=== PATIENT | male | born 1960 | race Caucasian/White ===

== ENCOUNTER 2020-07-06 13:31 | Emergency (ER) | payer MEDICARE, SELFPAY ==
--- NOTE | ~2020-07-06 | CT_ITS ---
EXAMINATION: CT brain wo con DATE: 07/06/2020 14:10 INDICATION: Dizziness. Tingling sensation of scalp. TECHNIQUE: Computed tomography (CT) of the head was performed without intravenous contrast. The mA wa s adjusted according to patient size. Iterative reconstruction technique was employed. The dose-lengt h product was 681.00 mGy-cm. COMPARISON: Head CT 06/11/2008 FINDINGS: There is no intracranial hemorrhage, acute infarction, or abnormal intracranial mass lesion . The ventricles are normal in size. The orbits are normal. There is mild mucosal thickening in the e thmoid sinuses. The mastoid air cells are normal. IMPRESSION: 1. Normal brain. Reviewed, dictated and finalized at location B. IMPRESSION: 1. Normal brain.
--- NOTE | ~2020-07-06 | CT_ITS ---
EXAMINATION: CT cervical spine wo con DATE: 07/06/2020 14:10 INDICATION: Dizziness. Tingling of the scalp. TECHNIQUE: Computed tomography (CT) of the cervical spine was performed without intravenous contrast. Automated exposure control and iterative reconstruction technique were employed. The dose-length pro duct was 439.95 mGy-cm. COMPARISON: None FINDINGS: There is kyphosis of cervical spine. Vertebral body heights are normal. There is mildly dec reased disc height at C5-C6. There is developmental osseous central canal stenosis from C2 to C4. The following disc levels are specifically discussed: C2-C3: There is no uncovertebral joint osteoarthritis. There is mild right facet joint osteoarthritis . There is no neural foraminal stenosis. There is mild central canal stenosis. C3-C4: There is no uncovertebral joint osteoarthritis. There is mild bilateral facet joint osteoarthr itis. There is no neural foraminal stenosis. There is mild central canal stenosis. C4-C5: There is mild right uncovertebral joint osteoarthritis. There is no facet joint osteoarthritis . There is no neural foraminal stenosis. There is mild central canal stenosis. C5-C6: There is mild bilateral uncovertebral joint osteoarthritis. There is mild right facet joint os teoarthritis. There is no neural foraminal stenosis. There is mild central canal stenosis. C6-C7: There is no uncovertebral joint osteoarthritis. There is mild bilateral facet joint osteoarthr itis. There is no neural foraminal stenosis. There is no central canal stenosis. C7-T1: There is no uncovertebral joint osteoarthritis. There is moderate bilateral facet joint osteoa rthritis. There is no neural foraminal stenosis. There is no central canal stenosis. IMPRESSION: 1. Mild cervical spondylosis. Reviewed, dictated and finalized at location B.
[2020-07-06 13:34] VITALS: PULSE 70; RESP 17; TEMP 36.3; O2SAT 99
[2020-07-06 13:38] VITALS: BP 107/72; PULSE 70; RESP 18; O2SAT 98
--- NOTE | 2020-07-06 13:41 | ED.NEUROSD ---
HPI - Neuro Symptoms/Deficit General Chief Complaint: Neuro Symptoms/Deficit Stated Complaint: tingling to head Time Seen by Provider: 07/06/20 13:34 History of Present Illness HPI Narrative: Patient presents with his for a tingling sensation across his left scalp. This is been going on for a couple of weeks. And lasts a couple of hours when it happened. It is not related to motion or the position of his head. This is not associated with any pain. He also has problems with dizziness and is being worked up by a neurologist, who thinks it may be post concussive syndrome. He has an appointment in July for further follow-up. He no longer works. He walks with a cane. He does not smoke cigarettes,, or do drugs, or drink alcohol. Onset (ago): week(s) Timing confirmed by: spouse Location: other (Left scalp) Severity: mild Quality: tingling Relieving factors: none Exacerbating factors: none Context: gradual onset On Anticoagulants: No Associated symptoms: vertigo Treatments Prior to Arrival: none Related Data Home Medications Medication Instructions Recorded Confirmed atorvastatin 40 mg PO DAILY 07/06/20 carvedilol 25 mg PO DAILY 07/06/20 diazepam 10 mg PO DAILY 07/06/20 ergocalciferol (vitamin D2) 1,250 mcg PO DAILY 07/06/20 gabapentin 300 mg PO TID 07/06/20 losartan 100 mg PO DAILY 07/06/20 rivaroxaban [Xarelto] 20 mg PO DAILY 07/06/20 tramadol 50 mg PO Q3-6H PRN 07/06/20 trazodone 100 mg PO DAILY 07/06/20 Allergies Allergy/AdvReac Type Severity Reaction Status Date / Time meperidine Allergy Mild Verified 05/28/14 15:11 methadone Allergy Mild Verified 05/28/14 15:11 Review of Systems Review of Systems: Narrative: CONSTITUTIONAL: Denies fever, chills, or sweats. EYES: Denies visual changes, redness, or discharge. ENT: Denies rhinorrhea, congestion, sore throat, or otalgia. CARDIOVASCULAR: Denies chest pain, palpitations, or edema. RESPIRATORY: Denies cough or dyspnea. GASTROINTESTINAL: Denies abdominal pain, nausea, vomiting, or diarrhea. GENITOURINARY: Denies dysuria or hematuria. SKIN: Denies rash or itching. MUSCULOSKELETAL: Denies back pain, joint pain, or myalgia. NEUROLOGIC: Denies headache, numbness, or weakness. He does have tingling on the left scalp, and dizziness intermittently. . All systems reviewed & are unremarkable except as noted in HPI and below PMFSH Social History Social History (Updated 07/06/20 @ 13:44 by Sierra Gar MD) Smoking status: Never smoker Alcohol intake: never Substance use: never Gender identity (if verbalized by the patient): Male Exam Narrative: Exam Narrative: GENERAL: Well-appearing, well-nourished, and in no acute distress. HEAD: Normocephalic, atraumatic. EYES: PERRLA and EOMI. ENT: Nares clear, no rhinorrhea or epistaxis. Mucous membranes moist. NECK: Supple. CHEST: Clear to auscultation. No respiratory distress. HEART: Regular rate and rhythm. No murmur heard. Normal peripheral pulses. ABDOMEN: Soft, nontender, nondistended, normal active bowel sounds. EXTREMITIES: Normal range of motion. No edema. SKIN: Warm, dry, no rash. NEURO: No focal deficits. Alert and oriented x3. PSYCH: Flat affect. Course Reevaluation(s) Reevaluation #1: Went in to tell the patient and his the findings from the cervical CAT scan and the CAT scan of the brain. The paresthesias have no anatomical source. I told them is probably a pinched nerve, and no treatment is necessary. He should follow-up with his neurologist at [facility]. Unfortunately [facility] does not have access to our medical records. I advised the patient to stop by medical records after today to get a copy of the CAT scan reports for the neurologist. Date: 07/06/20 Time: 14:38 Vital Signs Vital signs: Vital Signs Temperature 97.4 F L 07/06/20 13:34 Pulse Rate 70 07/06/20 13:34 Respiratory Rate 17 07/06/20 13:34 Pulse Oximetry 99 07/06/20 13:34 Temperature 97.4 F L
[2020-07-06 13:52] LABS: Basophils Percent Auto 0.3 % (0.2-1.2); Eosinophils Absolute Auto 0.1 K/mm3 (0-0.3); Eosinophils Percent Auto 1.6 % (0-4.4); Hematocrit 48.5 % (42.0-52.0); Immature Granulocyte Absolute 0.03 K/mm3 (0.00-0.031); Immature Granulocyte Percent A 0.4 % (0-0.5); Lymphocytes Absolute Auto 1.58 K/mm3 (0.9-3.2); Lymphocytes Percent Auto 20.8 % (18.3-44.2); Mean Corpuscular HGB Conc 35.1 g/dl (32-36); Mean Corpuscular Volume 91.2 fl (80-100); Monocytes Absolute Auto 0.5 K/mm3 (0.1-0.6); Neutrophils Absolute Auto 5.3 K/mm3 (1.3-6.7); Neutrophils Percent Auto 69.9 % (45.5-73.1); Platelet Count Result 246 k/mm3 (150-375); Red Blood Count 5.32 M/mm3 (4.6-6.20); Red Cell Distribution Width 11.6 % (11.5-14.5); White Blood Count 7.6 K/mm3 (4.5-10.0)
[2020-07-06 14:04] LABS: Alanine Aminotransferase 32 U/L (4-50); Albumin Level 4.6 g/dL (3.5-5.1); Alkaline Phosphatase 54 U/L (38-126); Anion Gap 6 mmol/L (8-16); Aspartate Amino Transferase 28 U/L (17-59); Bilirubin,Total 1.1 mg/dL (0.2-1.3); Blood Urea Nitrogen 16 mg/dL (9-20); Calcium 9.3 mg/dL (8.4-10.2); Carbon Dioxide 29 mmol/L (22-30); Chloride 100 mmol/L (98-107); Estimated CRCL calculation 84 ml/min; Estimated Glomerular Filt Rate > 60; Glucose 88 mg/dL (75-110); Potassium 4.8 mmol/L (3.4-5.0); Sodium 135 mmol/L (137-145)
[2020-07-06 14:54] VITALS: BP 102/67; PULSE 78; RESP 18; O2SAT 99
== END 2020-07-06 14:56 | disposition home or self-care (01) ==
PROVIDERS: Emergency Provider Emergency Medicine; PCP Nurse Practitioner Pediatrics
DX: R20.2 Paresthesia of skin (principal); R42 Dizziness and giddiness; M47.812 Spondylosis without myelopathy or radiculopathy, cervical region
CPT/HCPCS: 36415; 70450; 72125; 80053; 85025; 99284

== ENCOUNTER 2021-12-06 15:15 | Outpatient (RCR) | payer MEDICARE, SELFPAY ==
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
--- NOTE | 2021-10-31 13:34 | PTOPEVAL ---
PHYSICAL THERAPY PROGRESS REPORT Thank you for referring Felix Galindo to [facility].? The patient is scheduled to be seen for therapy? 1x/week for 4x/wk. I agree with and certify that the following plan of care is medically necessary. Referring Physician Date Diagnosis traumatic encephalopathy Onset chronic Subjective Information has been coming to therapy for Query Text:As Reported By Patient/ a month for balance work. Family States that this morning he stood up with his left leg and went to put his right leg down and he feel flat on his face. Was able to get up on his own. States in the last month he has had several falls : 1 x at [facility], several times at home. Patient lives with his . He is independent with ADLs and drives. He goes to the gym and works out 3 days/week. 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 Requires Supervision Look Behind Shoulder - Standing Supervision w/Turning Turning 360 Degrees Requires Assistance Unsupported Stance, Alternating Feet on Assist to Prevent Fall Stair Unsupported Tandem Stance Assist to Step-15 seconds Unilateral Leg Stance Unable,assist to not fall PALACIOS Balance Evaluation Total Score (56 20 points) Comments 1month ago Time Up Go (TUG) Timed Up and Go Test (TUG) (Seconds) 18 Assistive Devices Cane, Straight Comments 1month ago = 18seconds 5 Time Sit to Stand Time in Seconds 16.57 5 Time Sit to Stand Comments with arm rests Query Text:Normative Data: If Greater 1month ago = 17.59seconds, no Than 15 Seconds, 74% Increase Risk for arm rests Recurrent Falls Gait Assessment 6 Minute Walk Total Distance (feet) 572 6 Minute Walk Gait Speed Score (feet/ 1.58 second) 6 Minute Gait Comments each lap was slower than the last; with straight cane
--- NOTE | 2021-12-06 16:00 | PTOPEVAL ---
PHYSICAL THERAPY DISCHRAGE NOTE Thank you for referring Felix Galindo to [facility].? Please review, sign, date and return this plan of care MYRIAM. I agree with and certify that the following plan of care is medically necessary. Referring Physician Date Discharge Diagnosis traumatic encephalopathy Onset chronic Subjective Information has been coming to therapy for Query Text:As Reported By Patient/ two months for balance work. Family continues to report a couple of falls including falling getting out of the shower at the gym (tripped over the lip) . Still going to the gym 3x/ wk. States that exercises at home are doing well. Pain Assessment Timing of Pain Assessment Timing of Pain Assessment Assessment Self Report Self Report Pain Level 0 Pain Score Pain Score 0: Self Report Balance Assessment Roman Balance Assessment Comments 1month ago = 2056 2month ago 2756 Time Up Go (TUG) Timed Up and Go Test (TUG) (Seconds) 10 Assistive Devices Cane, Straight Comments 1month ago = 18seconds 2month ago = 18seconds 5 Time Sit to Stand Time in Seconds 11.69 5 Time Sit to Stand Comments 1month ago: 16.57seconds Query Text:Normative Data: If Greater with arm rests Than 15 Seconds, 74% Increase Risk for 2month ago = 17.59seconds, no Recurrent Falls arm rests Gait Assessment 6 Minute Walk Total Distance (feet) 863 6 Minute Walk Gait Speed Score (feet/ 2.39 second) 6 Minute Gait Comments 1month ago 572 (1.58ft/second) 2month ago = 685, 1.9ft/second PT Clinical Summary Felix has participated in physicla therapy for 2months. Felix demonstrates significantly improved gait speed, balance, and LE strength. He demonstrates functional strength and functional gait speed. He does continue to have some balance deficit; however, due to his traumatic encephalopathy it is difficult to predict how much his balance might improve from current state. He goes to the gym 3 days a week doing
--- NOTE | 2021-12-10 09:28 | STOPEVAL ---
Thank you for referring Felix Galindo to [facility].? Ordering Physician: Supriya Jiang Therapy Assessment Status Assessment Status Assessment Status Discharge - Pt Not Present Outpatient Past Medical History Past Medical History Source of Past Medical History Patient Neurological History Hx Other Neurological Disorders Yes: TBIs, multiple concussions w/ cognitive changes Musculoskeletal History Hx Fractures Yes: Cervical fx 1980s w/ chronic pain Pain History Has Past Pain Affected Your Daily Life Yes ST Clinical Summary Clinical Summary ST Clinical Summary DISCHARGE SUMMARY This patient was seen for a Speech Evaluation on 10/03/21 with 6 subsequent treatments addressing use of memory strategies to facilitate recall. Patient was instructed in the use of a variety of recall strategies including visual imagery, use of associations, repeating new information aloud, and others. Patient voiced good understanding of these strategies and also was able to apply them to situations. Patient's also attended the last session and was instructed in the use of these strategies and how to facilitate patient's use of them. Both patient and voiced understanding. A concern of patient's included when his asks him to bring her, for example, a cup of coffee. When strategies were discussed (repeating aloud the instructions back to the , picturing the cup of coffee in his head), patient agreed he could do that, but then made a comment about stopping to feed the dog and other side jobs; therapist instructed him to not do those things but immediately attend to the instruction. He voiced understanding however concerns
== END 2021-12-07 10:06 | disposition home or self-care (01) ==
LOC: ANHPT 15:15
PROVIDERS: PCP Nurse Practitioner Pediatrics
DX: S06.9X0D Unspecified intracranial injury without loss of consciousness, subsequent encounter (principal); G31.09 Other frontotemporal neurocognitive disorder; F02.80 Dementia in other diseases classified elsewhere, unspecified severity, without behavioral disturbance, psychotic disturbance, mood disturbance, and anxiety; R26.89 Other abnormalities of gait and mobility; R41.89 Other symptoms and signs involving cognitive functions and awareness; R27.8 Other lack of coordination
CPT/HCPCS: 92507; 92523; 97110; 97116; 97163; 97165

== ENCOUNTER 2022-12-16 18:43 | Observation (INO) | payer MEDICARE, SELFPAY ==
--- NOTE | ~2022-12-16 | CT_ITS ---
EXAMINATION: CT brain wo con DATE: 12/17/2022 08:45 INDICATION: Loss of consciousness. Fall. TECHNIQUE: Computed tomography (CT) of the head was performed without intravenous contrast. Sagittal and coronal reconstructions were performed. The mA was adjusted according to patient size. Iterative reconstruction technique was employed. The dose-length product was 605.33 mGy-cm. COMPARISON: head CT dated 07/06/2020 and 06/11/2008 FINDINGS: No fracture. No acute intracranial hemorrhage or acute infarction. Again noted is a prominent cistern a magna. No other abnormal extra-axial fluid collections. Ventricles are normal and symmetric. No mas s/mass effect. Mucosal thickening at the right frontoethmoidal recess. The orbits and mastoid air kelly ls are normal. IMPRESSION: 1. No fracture or acute intracranial process. Reviewed, dictated and finalized at location L. [facility] C[facility] CONSULTANT
--- NOTE | ~2022-12-16 | XR_ITS ---
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 RESULT: Lines, tubes, and devices: Left chest pacer/AICD with 4 intact leads. Lungs and pleura: Low lung volumes with crowding, particularly in the lateral view. Cardiomediastinal silhouette: Stable. Other: No acute osseous or upper abdominal finding. IMPRESSION: No acute cardiopulmonary process. Reviewed, dictated and finalized at location K. SCHOOL SCIENCE TEACHER
--- NOTE | ~2022-12-16 | NM_ITS ---
EXAMINATION: NM vinay stress w perfusion DATE: 12/17/2022 14:21 INDICATION: Syncope TECHNIQUE: Rest images were obtained following intravenous administration of 9.4 mCi Tc99m tetrofosmi n (Myoview). The patient was infused intravenously with Lexiscan (Regadenoson). Then, 30.8 mCi Tc99m tetrofosmin (Myoview) was administered intravenously, and stress images were obtained. Data was recon structed into short axis and horizontal and vertical long axis SPECT images. Gated SPECT images were also obtained. COMPARISON: None. FINDINGS: There is no definite reversible or fixed perfusion abnormality to suggest ischemia or infar ction. There is normal left ventricular chamber size, wall motion and ejection fraction. Left ventr icular ejection fraction measures 64%. IMPRESSION: 1. Normal myocardial perfusion at rest and during stress. 2. Left ventricular ejection fraction measuring 64%. Reviewed, dictated and finalized at location L. 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
--- NOTE | ~2022-12-16 | CT_ITS ---
EXAMINATION: CTA chest abdomen pelvis DATE: 12/16/2022 21:51 INDICATION: Chest and abdominal pain . TECHNIQUE: Computed tomography (CT) of the chest, abdomen, and pelvis was performed with 100 mL Omnip aque-350 intravenous contrast, in the arterial phase. Automated exposure control and iterative recons truction technique were employed. The dose-length product was 1455.44 mGy-cm. COMPARISON: CT abdomen and pelvis 08/21/2018 FINDINGS: Thoracic aorta: No significant dilation or significant stenosis. No dissection. Lung parenchyma and airways: Lungs and airways are clear. There is dependent atelectasis. Thoracic inlet, axillae and chest wall: No thyroid or soft tissue mass. No axillary lymphadenopathy. Left chest pacer/AICD with intact leads. Mediastinum: No mass or lymphadenopathy. Heart and pericardium: Mild cardiomegaly. No pericardial effusion. Coronary artery calcifications: Absent. Pleura: No effusion or mass. Thoracic bones: No acute osseous finding in the chest. ABDOMEN/PELVIS: Liver: Normal. Biliary/Gallbladder: Gallbladder is normal. No bile duct dilation. Pancreas: Fatty infiltration. Spleen: Normal. Adrenals:No mass. Kidneys: No mass, stone, or hydronephrosis. GI tract: Mild distal esophageal and gastric wall edema No small or large bowel dilation. Normal appe ndix. Diverticulosis without diverticulitis. Mesentery/Peritoneum: No ascites, mass, or free air. Retroperitoneum: No mass. Mild atherosclerotic abdominal aortic and/or arterial calcifications. No di ssection, aneurysm, or significant stenosis. Pelvis: Distended urinary bladder with mild wall thickening likely secondary to outlet compromise fro m prostatomegaly. Soft Tissues: Soft tissues and body wall unremarkable. Abdominopelvic bones: No acute osseous finding in the abdomen/pelvis. IMPRESSION: Mild esophagitis/gastritis. Otherwise no acute process detected in the chest, abdomen, or pelvis. Reviewed, dictated and finalized at location K. PATCHER IMPRESSION: Mild esophagitis/gastritis. Otherwise no acute process detected in the chest, a bdomen, or pelvis.
[2022-12-16 18:56] VITALS: BP 132/90; PULSE 70; RESP 16; TEMP 36.8; O2SAT 96
--- NOTE | 2022-12-16 19:01 | ECG_ITS ---
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
[2022-12-16 19:11] LABS: Basophils Percent Auto 0.1 % (0.2-1.2); Eosinophils Absolute Auto 0.1 K/mm3 (0-0.3); Eosinophils Percent Auto 1.7 % (0-4.4); Hematocrit 46.7 % (42.0-52.0); Immature Granulocyte Absolute 0.02 K/mm3 (0.00-0.031); Immature Granulocyte Percent A 0.3 % (0-0.5); Lymphocytes Absolute Auto 1.81 K/mm3 (0.9-3.2); Lymphocytes Percent Auto 25.6 % (18.3-44.2); Mean Corpuscular HGB Conc 34.3 g/dl (32-36); Mean Corpuscular Hemoglobin 31.6 pg (26-34); Mean Corpuscular Volume 92.1 fl (80-100); Mean Platelet Volume 9.4 fl (7.4-10.4); Monocytes Absolute Auto 0.6 K/mm3 (0.1-0.6); Monocytes Percent Auto 7.9 % (2.6-8.5); Neutrophils Absolute Auto 4.6 K/mm3 (1.3-6.7); Neutrophils Percent Auto 64.4 % (45.5-73.1); Platelet Count Result 230 k/mm3 (150-375); Red Blood Count 5.07 M/mm3 (4.6-6.20); White Blood Count 7.1 K/mm3 (4.5-10.0)
[2022-12-16 19:19] LABS: Alanine Aminotransferase 47 U/L (6-50); Albumin Level 4.2 g/dL (3.5-5.1); Alkaline Phosphatase 52 U/L (38-126); Anion Gap 8 mmol/L (8-16); Aspartate Amino Transferase 35 U/L (17-59); Bilirubin,Total 1.1 mg/dL (0.2-1.3); Blood Urea Nitrogen 13 mg/dL (9-20); Calcium 8.6 mg/dL (8.4-10.2); Carbon Dioxide 25 mmol/L (22-30); Chloride 105 mmol/L (98-107); Estimated Glomerular Filt Rate > 60; Glucose 88 mg/dL (65-110); Lipase 33 U/L (23-300); Potassium 4.3 mmol/L (3.4-5.0); Sodium 138 mmol/L (137-145)
[2022-12-16 19:23] LABS: INR 1.5; Prothrombin Time 17.3 Seconds (11.1-14.7)
[2022-12-16 19:31] LABS: Troponin I < 0.012 ng/mL (0.000-0.034)
[2022-12-16 20:44] VITALS: BP 141/89; PULSE 76; RESP 15; O2SAT 97
--- NOTE | 2022-12-16 21:13 | ED.CHESTPAIN ---
HPI - Chest Pain General Chief Complaint: Chest Pain Stated Complaint: cp Time Seen by Provider: 12/16/22 20:40 History of Present Illness HPI narrative: This is a 61-year-old male with past medical history of CHF, status post pacemaker/ICD placement, who presents to the emergency department complaining of substernal epigastric pain for the past 4 hours. The pain began suddenly, is rated 8/10, does not radiate elsewhere, it is not associated with any weakness or numbness, but is associated with cold sweats and nausea. The patient states he lost consciousness at home. His , at bedside, states she witnessed the episode. Related Data Home Medications Medication Instructions Recorded Confirmed atorvastatin 40 mg tablet 40 mg PO DAILY 07/06/20 carvedilol 25 mg tablet 25 mg PO DAILY 07/06/20 diazepam 10 mg tablet 10 mg PO DAILY 07/06/20 ergocalciferol (vitamin D2) 1,250 1,250 mcg PO DAILY 07/06/20 mcg (50,000 unit) capsule gabapentin 300 mg capsule 300 mg PO TID 07/06/20 losartan 100 mg tablet 100 mg PO DAILY 07/06/20 rivaroxaban 20 mg tablet (Xarelto) 20 mg PO DAILY 07/06/20 tramadol 50 mg tablet 50 mg PO Q3-6H PRN Pain 07/06/20 trazodone 100 mg tablet 100 mg PO DAILY 07/06/20 Allergies Allergy/AdvReac Type Severity Reaction Status Date / Time meperidine Allergy Mild Unknown Verified 12/16/22 21:25 methadone Allergy Mild Unknown Verified 12/16/22 21:25 shellfish derived Allergy Unknown Verified 12/16/22 21:25 Review of Systems Review of Systems: CONSTITUTIONAL: Chills denies fever, or sweats. EYES: Denies visual changes, redness, or discharge. ENT: Denies rhinorrhea, congestion, sore throat, or otalgia. CARDIOVASCULAR: Chest pain, denies palpitations, or edema. RESPIRATORY: Denies cough or dyspnea. GASTROINTESTINAL: Epigastric abdominal pain and nausea denies vomiting, or diarrhea. GENITOURINARY: Denies dysuria or hematuria. SKIN: Denies rash or itching. MUSCULOSKELETAL: Denies back pain, joint pain, or myalgia. NEUROLOGIC: Denies headache, numbness, dizziness, or weakness. PSYCHIATRIC: Denies anxiety or depression. [facility] Past Medical History Medical History CHF (congestive heart failure) Pacemaker Social History Social History Smoking status: Never smoker Alcohol intake: never Substance use: never Gender identity (if verbalized by the patient): Male Exam Narrative: GENERAL: Well-developed, well-nourished, and in no acute distress. HEAD: Normocephalic, atraumatic. EYES: PERRLA and EOMI. ENT: Nares clear, no rhinorrhea or epistaxis. Mucous membranes moist. Oropharynx without tonsillar hypertrophy exudate or other lesions. NECK: Supple. No adenopathy or masses. No carotid bruits or JVD CHEST: Clear to auscultation. No respiratory distress. No wheezes rales or rhonchi HEART: Regular rate and rhythm. No murmur heard. Normal peripheral pulses. ABDOMEN: Soft, tender to palpation primarily in the epigastric region with some rebound but no guarding, nondistended, normal active bowel sounds. No CVA tenderness to palpation EXTREMITIES: Normal range of motion. No edema. SKIN: Warm, dry, no rash. NEURO: No focal deficits. Alert and oriented x3. PSYCH: Normal mood and affect. Course Course Emergency Course: 22:50 - CT angiogram negative for dissection and shows changes consistent with gastritis/esophagitis. ECG consistent with LBBB. Repeat troponin negative. The patient states his pain is somewhat improved but still present. HEART Score 6. Discussed findings with the patient. He states his pain is somewhat improved after GI cocktail. Given his history, will discuss patient with hospitalist. 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 Discussed transfer for admission and follow-up, however the patient prefers to stay here. Discussed patient with hospitalist, Dr. Gutierres who ac
[2022-12-16] MEDS: ONDANSETRON INJ 4 MG/2 ML VIAL IV PUSH (21:25)
[2022-12-16] MEDS: MORPHINE SULFATE (*CRX) 4 MG/ML INJ IV PUSH (21:25)
[2022-12-16] MEDS: BELLADONNA ALK/PHENOB ELIX 10 ML, MAG HYDROX/ALUMINUM HYD/SIMETH 30 ML, LIDOCAINE HCL 2... PO (21:26)
--- NOTE | 2022-12-16 21:51 | PC.NURSE ---
As this RN was administering IV medications, pt became unresponsive for approx 5-10 seconds. Aroused with light pain. VSS throughout episode, no diaphoresis or pallor noted during episode. Pt A&Ox4 upon arousal, states he feels disoriented . EDP notified.
[2022-12-16 22:02] VITALS: BP 124/87; PULSE 84; RESP 22; O2SAT 96
[2022-12-16 22:39] LABS: Troponin I < 0.012 ng/mL (0.000-0.034)
[2022-12-16 23:31] VITALS: BP 116/76; PULSE 83; RESP 19; O2SAT 95
[2022-12-17] VITALS (23 sets, daily range): BP systolic 89–114; BP diastolic 50–75; PULSE 64–89; RESP 13–21; TEMP 35.7–36.7; O2SAT 94–100; BMI 28.8; BMI 31.6
[2022-12-17] MEDS: PANTOPRAZOLE SODIUM IV 40 MG VIAL IV PUSH (00:08)
[2022-12-17 01:51] LABS: Troponin I < 0.012 ng/mL (0.000-0.034)
[2022-12-17] MEDS: GABAPENTIN 400 MG CAPSULE 800 MG PO ×4 (03:29→16:45)
[2022-12-17] MEDS: traZODone HCL 50 MG TABLET 100 MG PO ×2 (03:29→20:51)
[2022-12-17] MEDS: DONEPEZIL HCL 10 MG TABLET PO ×2 (03:30→20:52)
[2022-12-17] MEDS: traMADol HCL (*CRX) 50 MG TABLET PO ×2 (03:35→11:42)
[2022-12-17 05:06] LABS: Basophils Percent Auto 0.3 % (0.2-1.2); Eosinophils Absolute Auto 0.1 K/mm3 (0-0.3); Eosinophils Percent Auto 1.8 % (0-4.4); Hematocrit 43.7 % (42.0-52.0); Hemoglobin 15.3 g/dL (14.0-18.0); Immature Granulocyte Absolute 0.02 K/mm3 (0.00-0.031); Immature Granulocyte Percent A 0.3 % (0-0.5); Lymphocytes Percent Auto 29.5 % (18.3-44.2); Mean Corpuscular Hemoglobin 32.6 pg (26-34); Mean Corpuscular Volume 93.2 fl (80-100); Mean Platelet Volume 9.2 fl (7.4-10.4); Monocytes Absolute Auto 0.7 K/mm3 (0.1-0.6); Monocytes Percent Auto 9.3 % (2.6-8.5); Neutrophils Absolute Auto 4.2 K/mm3 (1.3-6.7); Neutrophils Percent Auto 58.8 % (45.5-73.1); Platelet Count Result 193 k/mm3 (150-375); Red Blood Count 4.69 M/mm3 (4.6-6.20); Red Cell Distribution Width 12.2 % (11.5-14.5); White Blood Count 7.1 K/mm3 (4.5-10.0)
[2022-12-17 05:14] LABS: Anion Gap 4 mmol/L (8-16); Blood Urea Nitrogen 10 mg/dL (9-20); Calcium 8.2 mg/dL (8.4-10.2); Carbon Dioxide 29 mmol/L (22-30); Chloride 100 mmol/L (98-107); Estimated CRCL calculation 95 ml/min; Estimated Glomerular Filt Rate > 60; Glucose 90 mg/dL (65-110); Sodium 133 mmol/L (137-145)
--- NOTE | 2022-12-17 07:02 | PM.IMHP ---
H&P: HPI History of Present Illness Date/Time: 12/17/22 07:02 Chief Complaint: Chest pain Narrative: 61-year-old male with past medical history of cardiomyopathy, sick sinus syndrome status post pacemaker paroxysmal atrial fibrillation, CVA, traumatic brain injury, chronic traumatic encephalopathy and GERD who presented to the ER via private vehicle with chest pain. The patient reports that he had pain in his left lower ribcage in epigastric area on the left side that was in odd sensation. He describes it is a sensation similar to when he has neuropathy. The pain was reportedly an 8/10 intensity Tee to ER documentation. Pain did not radiate. He denied having any nausea or diaphoresis at the time of my evaluation but had evidently reported to the ER staff. The patient does have a history of short-term memory difficulties due to his chronic traumatic encephalopathy. He states that when he went in to triage to get is vitals take id he lost consciousness and fell. He states that he struck his head and shoulder. However there was not documentation of this. Nursing staff tells me the patient fell but ?popped up immediately. He stated that he was placed into a wheelchair intake into the waiting room. The patient reports that while he was sitting in the waiting room in a wheelchair he slumped over to the side and was unresponsive. He came around after a brief interval. He was not confused or postictal. Evidently when nursing staff was administering IV medications (it is unclear whether this was pain medications or Zofran) in the ER the patient stared off into space for 5-10 seconds and stated that he felt disoriented afterwards. Does have a history of like intermittent dizziness, he will of intermittent fluctuations in his vision that he relates to changes in his age. He denies double vision. The patient reports that his actual chest symptoms had resolved around the time he came into the ER. ER so physician documentation states patient's pain improved after GI cocktail. CTA of the chest abdomen pelvis were performed in the ER to rule out aortic dissection. CT demonstrated mild esophagitis and gastritis. However, he is now complaining of left shoulder pain due to his falling over in the ER. He reports that he has severe rotator cuff damage and needs to have time off to have his rotator cuff repaired. His pain is rid her cuff is a 10/10. He states that his home tramadol only takes the edge off of the pain. He still states he cannot get his rotator cuff repaired right now because they were dealing with his having stage IV cervical cancer and he has to be able to take care of her. He has a history of GERD noted on records from [facility]. I reviewed the patient's records from his my chart application. He is not on PPI therapy. He has a distant history of obstructive sleep apnea based states that this resolved after he lost weight. He still has a dental appliance that he uses occasionally. He states that his 's says he no longer snores. He does have a history of seizures with his last 1 being approximately 2006. He sees Dr. Ceasar Whitten at [facility] for his neurologic complaints. He reports that he has a free lead from his pacemaker defibrillator in his chest. Review of Systems Review of Systems: 12 systems were reviewed with pertinent positives and negatives per HPI. Except as documented in the HPI, all other systems were reviewed and are negative. He reports frequent headaches, cautious her phobia, depression,. [facility] Past Medical History Medical History (Updated 12/17/22 @ 09:47 by Faith Gutierres, ) CHF (congestive heart failure) Chronic anticoagulation CTE (chronic traumatic encephalopathy) Depression Essential hypertension GERD (gastroesophageal reflux disease) Hyperlipidemia Insomnia Migraines Obstructive sleep apnea Pacemaker Paroxysmal atrial fibrillation With last episode approximately 2005 when he h
[2022-12-17] MEDS: carvediloL 25 MG TABLET PO ×2 (09:16→20:52)
[2022-12-17] MEDS: MEMANTINE 10 MG TABLET PO ×2 (09:16→16:45)
[2022-12-17] MEDS: ATORVASTATIN 40 MG TABLET PO (09:16)
[2022-12-17] MEDS: PANTOPRAZOLE 40 MG TABLET PO (09:20)
[2022-12-17] MEDS: diazePAM (*CRX) 10 MG TABLET PO ×2 (09:21→16:49)
[2022-12-17] MEDS: HYDROcodone/acetaminophen (*CRX) 5-325 MG TABLET 1 TAB PO ×3 (09:23→20:52)
--- NOTE | 2022-12-17 10:20 | PC.NURSE ---
RN talked with [employer] pacemaker rep. They will come to hospital to interrogate this patient's pacemaker per orders.
--- NOTE | 2022-12-17 10:32 | EST_ITS ---
Patient Info Name: Felix Galindo Age: 61 years : 1960 Gender: Male Ht: 71 in Wt: 226 lbs BSA: 2.29 m2 Exam Date: 12/17/2022 1:31 PM Exam Location: [facility] Stress Patient Status: Inpatient Admit Date: 12/16/2022 Staff Ordering Physician: Abebe Cunningham MD Attending Provider: Faith Gutierres DO Exercise Technologist: Chacha Mondragon RDCS Nurse: WILMAR SANTIZO NP Exam Type: CA stress vinay w NM Study Info Indications R55 - Syncope and collapse A regadenoson stress test was performed. Summary 1. Non-diagnostic ECG due to electronic pacing. 2. Please correlate with nuclear medicine images, reported separately. Protocol: Lexiscan Stress ECG Details Stage: REST Duration (min): 0 min : 56 sec HR (bpm): 72 SBP (mmHg): 111 DBP (mmHg): 84 Stage: REST Duration (min): 4 min : 0 sec HR (bpm): 70 SBP (mmHg): 111 DBP (mmHg): 84 Stage: STAGE 1 Duration (min): 1 min : 0 sec HR (bpm): 89 SBP (mmHg): 118 DBP (mmHg): 84 Stage: RECOVERY Duration (min): 1 min : 0 sec HR (bpm): 91 SBP (mmHg): 111 DBP (mmHg): 81 Stage: RECOVERY Duration (min): 2 min : 0 sec HR (bpm): 87 SBP (mmHg): 111 DBP (mmHg): 81 Stage: RECOVERY Duration (min): 3 min : 0 sec HR (bpm): 78 SBP (mmHg): 112 DBP (mmHg): 80 Stage: RECOVERY Duration (min): 3 min : 4 sec HR (bpm): 79 SBP (mmHg): 112 DBP (mmHg): 80 Rest HR: 70 bpm Peak HR: 92 bpm Rest Sys BP: 111 mmHg Peak Sys BP: 118 mmHg Max Pred HR: 161 bpm % Max Pred HR: 57 % Target HR: 137 bpm Max RPP: 10,856 bpm*mmHg Total Time: 1 min : 0 sec Rest [place] BP: 84 mmHg Peak [place] BP: 84 mmHg Total Dose: 0.4 mg Resting ECG Ventricular paced rhythm. Stress ECG Ventricular paced rhythm. Non-diagnostic ECG due to electronic pacing. Report Signatures
--- NOTE | 2022-12-17 10:47 | PM.CNCAR ---
Assessment and Plan Assessment and plan (1) Syncope: Qualifiers: Syncope type: unspecified Qualified Code(s): R55 - Syncope and collapse Code(s): R55 - Syncope and collapse Status: Acute (2) Chronic anticoagulation: Code(s): Z79.01 - jail (current) use of anticoagulants Status: Acute (3) Atypical chest pain: Code(s): R07.89 - Other chest pain Status: Acute (4) Nonobstructive atherosclerosis of coronary artery: Code(s): I25.10 - Atherosclerotic heart disease of [place] coronary artery without angina pectoris Status: Acute (5) Nonischemic cardiomyopathy: Code(s): I42.8 - Other cardiomyopathies Status: Acute (6) Paroxysmal atrial fibrillation: Code(s): I48.0 - Paroxysmal atrial fibrillation Status: Acute (7) Sick sinus syndrome: Code(s): I49.5 - Sick sinus syndrome Status: Acute (8) ICD (implantable cardioverter-defibrillator) in place: Code(s): Z95.810 - Presence of automatic (implantable) cardiac defibrillator Status: Acute Plan Patient has been ruled out for ACS. Will obtain Lexiscan. Will have his device interrogated. Continue home statin, Coreg, Xarelto. He will need outpatient follow-up with his primary rake operator. History of Present Illness History of Present Illness Consult date/time: 12/17/22 10:47 Requesting physician: Brian Rodriguez MD Consult reason: chest pain Reason For Visit: Chest pain Narrative: We are being consulted for chest pain. This is a 61-year-old male with a history of non-obstructive coronary artery disease, nonischemic cardiomyopathy with moderately reduced LVEF, paroxysmal atrial fibrillation, sick sinus syndrome s/p PPM with upgrade to ICD, history of CVA, traumatic brain injury, GERD who presented to the ER with chest pain. Patient reports that he developed left lower chest/abdominal pain that began yesterday around 5PM at rest. Constant. Not associated with exertion. Patient reports that he lost consciousness at home when walking/shuffling. Passed out for a few moments. Patient states that he almost passed out while waiting in the ER and had slumped over. In the ER, he was given GI cocktail with reported improvement in symptoms. Unclear if he actually passed out in the ER waiting room. Patient reports that his pain is better now. Reports shoulder pain. ER evaluation showed negative troponins, CT with mild esophagitis/gastritis. EKG with ventricular paced rhythm. Patient tells me that he wants a stress test done, and he will not be leaving the hospital until he gets stress test. His rake operator is at [facility]. Review of Systems Review of Systems: 8-point ROS obtained. Negative, unless stated in HPI. [facility] Past Medical History Medical History CHF (congestive heart failure) Chronic anticoagulation CTE (chronic traumatic encephalopathy) Depression Essential hypertension GERD (gastroesophageal reflux disease) Hyperlipidemia Insomnia Migraines Obstructive sleep apnea Pacemaker Paroxysmal atrial fibrillation With last episode approximately 2005 when he has pacemaker placed Peripheral neuropathy PTSD (post-traumatic stress disorder) Sick sinus syndrome due to SA node dysfunction Status post pacemaker and defibrillator 2006 Traumatic brain injury Surgical History Surgical History History of colonoscopy with polypectomy (~2009) History of esophagogastroduodenoscopy (EGD) (~2009) History of facial surgery Status post open reduction with internal fixation (ORIF) of fracture of ankle (~1986) Status post open reduction with internal fixation of fracture Right knee Family History Family History Grandparent Acute myocardial infarction Chronic obstructive pulmonary disease Diabetes mellitus Hypertension
--- NOTE | 2022-12-17 15:35 | PM.IMPN ---
Subjective Date/time seen: 12/17/22 15:35 61-year-old male with past medical history of cardiomyopathy, sick sinus syndrome status post pacemaker paroxysmal atrial fibrillation, CVA, traumatic brain injury, chronic traumatic encephalopathy and GERD who presented to the ER via private vehicle with chest pain.? The patient reports that he had pain in his left lower ribcage in epigastric area on the left side that was in odd sensation.? He describes it is a sensation similar to when he has neuropathy.? Pt states he fell in ED and hit his head and his shoulder Pt has a chronic painful shoulder with rotator cuff injury Pt states he is having chest pain Pt seen cardiology had stress test cleared for discharge Pt stress test is negative however patient Pt states he has seizures and wants to see neurology before discharge States he need a EEG Neurology consult ordered Objective Data Vital Signs Vital Signs: Vital Signs - 24 hr 12/16/22 18:56 12/16/22 20:44 12/16/22 22:02 Temperature 36.8 C Pulse Rate 70 76 84 Respiratory Rate 16 15 22 H Blood Pressure 132/90 141/89 H 124/87 Pulse Oximetry 96 97 96 Oxygen Delivery Room Air 12/16/22 23:31 12/17/22 00:23 12/17/22 01:23 Temperature Pulse Rate 83 89 80 Respiratory Rate 19 13 13 Blood Pressure 116/76 108/75 Pulse Oximetry 95 96 95 Oxygen Delivery 12/17/22 01:42 12/17/22 02:00 12/17/22 04:00 Temperature 35.9 C L Pulse Rate 83 87 77 Respiratory Rate 18 Blood Pressure 89/50 L Pulse Oximetry 100 Oxygen Delivery 12/17/22 04:00 12/17/22 04:00 12/17/22 06:00 Temperature 36.7 C Pulse Rate 87 64 77 Respiratory Rate 18 18 Blood Pressure 97/64 L Pulse Oximetry 100 95 Oxygen Delivery Room Air 12/17/22 08:12 12/17/22 08:13 12/17/22 08:13 Temperature 35.9 C L Pulse Rate 73 78 82 Respiratory Rate 20 Blood Pressure 110/64 113/74 114/74 Pulse Oximetry 96 Oxygen Delivery 12/17/22 09:16 12/17/22 09:18 12/17/22 09:21 Temperature 35.9 C L Pulse Rate 70 73 78 Respiratory Rate 20 Blood Pressure 110/64 113/74 Pulse Oximetry 96 Oxygen Delivery 12/17/22 09:21 12/17/22 08:00 12/17/22 11:54 Temperature 36.1 C L Pulse Rate 82 70 85 Respiratory Rate 21 H Blood Pressure 114/74 98/63 L Pulse Oximetry 97 Oxygen Delivery 12/17/22 11:54 12/17/22 08:00 12/17/22 10:00 Temperature Pulse Rate 72 Respiratory Rate Blood Pressure 103/66 Pulse Oximetry Oxygen Delivery Room Air 12/17/22 12:00 12/17/22 12:00 12/17/22 14:00 Temperature Pulse Rate 73 73 78 Respiratory Rate Blood Pressure Pulse Oximetry 97 Oxygen Delivery Room Air Intake/Output Intake/Output: Intake & Output 12/14/22 12/15/22 12/16/22 12/17/22 23:59 23:59 23:59 23:59 Output Total 475 Balance -475 Meds/Results Medications: Active Medications Generic Name Dose Route Start Last Admin Trade Name Freq PRN Reason Stop Dose Admin Hydrocodone Bitart/Acetaminophen 1 tab 12/17/22 08:25 12/17/22 15:15 Hydrocodone/Acetaminophen (*Crx) 5-325 Mg Tablet PO 1 tab Q6H PRN Administration Pain Rated 7-10 Atorvastatin Calcium 40 mg 12/17/22 09:00 12/17/22 09:16 Atorvastatin 40 Mg Tablet PO 40 mg DAILY CURT Administration Carvedilol 25 mg 12/17/22 09:00 12/17/22 09:16 Carvedilol 25 Mg Tablet PO 25 mg Q12HR CURT Administration Diazepam 10 mg 12/17/22 09:00 12/17/22 09:21 Diazepam (*Crx) 10 Mg Tablet PO 10 mg BID CURT Administration Donepezil HCl 10 mg 12/17/22 02:50 12/17/22 03:30 Donepezil Hcl 10 Mg Tablet PO 10 mg HS CURT Administration Gabapentin 800 mg 12/17/22 02:35 12/17/22 12:45 Gabapentin 400 Mg Capsule PO 800 mg TID CURT Administration Memantine 10 mg 12/17/22 09:00 12/17/22 09:16 Memantine 10 Mg Tablet PO 10 mg BID CURT Administration Pantoprazole Sodium 40 mg 12/17/22 09:00 12/17/22 09:20 Pantoprazole 40
[2022-12-17] MEDS: RIVAROXABAN 20 MG TABLET PO (16:45)
[2022-12-17] MEDS: DOCUSATE SODIUM 100 MG CAPSULE PO (21:35)
[2022-12-18] VITALS (9 sets, daily range): BP systolic 90–120; BP diastolic 55–76; PULSE 63–77; RESP 16–20; TEMP 35.6–36.7; O2SAT 94–99
[2022-12-18] MEDS: HYDROcodone/acetaminophen (*CRX) 5-325 MG TABLET 1 TAB PO (07:40)
[2022-12-18] MEDS: carvediloL 25 MG TABLET PO (08:56)
[2022-12-18] MEDS: GABAPENTIN 400 MG CAPSULE 800 MG PO (08:56)
[2022-12-18] MEDS: ATORVASTATIN 40 MG TABLET PO (08:56)
[2022-12-18] MEDS: PANTOPRAZOLE 40 MG TABLET PO (08:57)
[2022-12-18] MEDS: diazePAM (*CRX) 10 MG TABLET PO (08:57)
[2022-12-18] MEDS: MEMANTINE 10 MG TABLET PO (08:57)
--- NOTE | 2022-12-18 09:34 | PM.PNCARD ---
Progress Note: A&P Assessment and Plan (1) ICD (implantable cardioverter-defibrillator) in place: Code(s): Z95.810 - Presence of automatic (implantable) cardiac defibrillator Status: Acute (2) Sick sinus syndrome: Code(s): I49.5 - Sick sinus syndrome Status: Acute (3) Paroxysmal atrial fibrillation: Code(s): I48.0 - Paroxysmal atrial fibrillation Status: Acute (4) Nonischemic cardiomyopathy: Code(s): I42.8 - Other cardiomyopathies Status: Acute (5) Nonobstructive atherosclerosis of coronary artery: Code(s): I25.10 - Atherosclerotic heart disease of [place] coronary artery without angina pectoris Status: Acute (6) Syncope: Qualifiers: Syncope type: unspecified Qualified Code(s): R55 - Syncope and collapse Code(s): R55 - Syncope and collapse Status: Acute (7) Chronic anticoagulation: Code(s): Z79.01 - manager long term care (current) use of anticoagulants Status: Acute (8) Atypical chest pain: Code(s): R07.89 - Other chest pain Status: Acute Plan Lexiscan showed normal myocardial perfusion at rest and during stress with no evidence of ischemia or infarction. LVEF 64%. Device interrogation shows well-functioning device without any significant arrhythmia episodes. Interrogation did note false atrial tachycardia episodes from oversensing. PVAB adjusted by the device rep. No further cardiac workup needed at this time. Continue his home cardiac meds. Patient to follow-up with his primary Master Scheduler at [facility]. Cardiology will sign off at this time. Subjective Date/time seen: 12/18/22 09:34 Interval history: Reason for visit: Chest pain, syncope HPI: This is a 61-year-old male with a history of non-obstructive coronary artery disease, nonischemic cardiomyopathy with moderately reduced LVEF, paroxysmal atrial fibrillation, sick sinus syndrome s/p PPM with upgrade to ICD, history of CVA, traumatic brain injury, GERD who presented to the ER with chest pain. Patient reports that he developed left lower chest/abdominal pain that began yesterday around 5PM at rest. Constant. Not associated with exertion. Patient reports that he lost consciousness at home when walking/shuffling. Passed out for a few moments. Patient states that he almost passed out while waiting in the ER and had slumped over. In the ER, he was given GI cocktail with reported improvement in symptoms. Unclear if he actually passed out in the ER waiting room. Patient reports that his pain is better now. Reports shoulder pain. ER evaluation showed negative troponins, CT with mild esophagitis/gastritis. EKG with ventricular paced rhythm. Patient tells me that he wants a stress test done, and he will not be leaving the hospital until he gets stress test. His dental specialist is at [facility]. Date of service 12/18: No further episodes of chest pain. Feeling well this morning. Review of Systems Review of Systems: 8-point ROS obtained. Negative, unless stated in HPI. Exam Const: General: comfortable and no acute distress HENMT: Mouth: Yes moist mucous membranes Eyes: General: appearance normal, both eyes and all related structures Sclera: sclerae normal Neck: Neck: supple Resp: Effort & Inspection: normal respiratory effort Auscultation: clear to auscultation bilaterally Cardio: Rate: regular rate Rhythm: regular rhythm Heart sounds: no murmurs GI: GI Palp: Yes Soft to palpation and No Tenderness to palpation present (GI) Skin: General skin exam: normal color Neuro: Speech: normal speech Extrem: General: normal to inspection Psych: Mental Status: mental status grossly normal Affect: normal affect Objective Data Vital Signs Vital Signs: Vital Signs - 24 hr 12/17/22 11:54 12/17/22 11:54 12/17/22 10:00 Temperature 36.1 C L Pulse Rate 85 72 Respiratory Rate 21 H Blood Pressure 98/63 L 103/66 Pulse Oximetry 97 Oxygen Delivery
--- NOTE | 2022-12-18 10:47 | WPDNEURCNPN ---
Assessment and Plan Assessment and plan (1) Paroxysmal atrial fibrillation: Code(s): I48.0 - Paroxysmal atrial fibrillation Status: Acute (2) Chronic anticoagulation: Code(s): Z79.01 - MCFP (current) use of anticoagulants Status: Acute (3) Dizzy: Code(s): R42 - Dizziness and giddiness Status: Acute Plan 1 history of multiple medical problems as mentioned with the concern regarding the possibility of seizures will obtain the EEG, initial CT scan of the head was negative for the bleed will obtain the EEG and MRI of the brain Consult date: 12/18/22 HPI: Felix Galindo is a 61 year old male Admitted to the hospital through the emergency room with the complaint of chest pain in addition to the history of 1. Congestive heart failure 2. Status post pacemaker and ICD placement. Patient was experiencing substernal epigastric pain for the last 4 hours rated at 8/10 without radiation or any associated weakness. Patient had been taking atorvastatin 40 mg daily, diazepam 10 mg daily, gabapentin 300 mg 3 times a day, losartan 100 mg daily, rivaroxaban 20 mg daily, tramadol 50 mgq 3 to 6 hours p.r.n., and trazodone 100 mg daily. Patient is a never smoker, never alcohol intake her, and initial exam in the emergency room was nonfocal, EKG was consistent with the left bundle branch block with negative troponins he received the GI cocktail and his CT angiogram was negative for dissection, vital signs were stable, routine lab studies were toshia, cardiology consultation has been obtained with documentation of ongoing history of nonischemic cardiomyopathy with reduced left ventricular ejection fraction and paroxysmal atrial fibrillation is status post ppm with upgrade to ICD and history of traumatic brain injuryl history of former alcohol intake former smoker, reportedly fell in the emergency room and also gave the history of seizures although he is not taking any seizure medication Review of Systems Review of Systems: All systems reviewed & are unremarkable except as noted in HPI and below [facility] Past Medical History Medical History CHF (congestive heart failure) Chronic anticoagulation CTE (chronic traumatic encephalopathy) Depression Essential hypertension GERD (gastroesophageal reflux disease) Hyperlipidemia Insomnia Migraines Obstructive sleep apnea Pacemaker Paroxysmal atrial fibrillation With last episode approximately 2005 when he has pacemaker placed Peripheral neuropathy PTSD (post-traumatic stress disorder) Sick sinus syndrome due to SA node dysfunction Status post pacemaker and defibrillator 2005 Traumatic brain injury Surgical History Surgical History History of colonoscopy with polypectomy (~2009) History of esophagogastroduodenoscopy (EGD) (~2009) History of facial surgery Status post open reduction with internal fixation (ORIF) of fracture of ankle (~1986) Status post open reduction with internal fixation of fracture Right knee Family History Family History Grandparent Acute myocardial infarction Chronic obstructive pulmonary disease Diabetes mellitus Hypertension Mother History of blood clots Social History Social History Social History: The patient is . 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 He smoked a pack of cigarettes per day for 35 years. He had a history of former heavy alcohol use but quit drinking in 2001. He denies illicit substance use. Code status: Full code Surrogate decision maker: Smoking packs per day: 1 Smoking cigarettes per day: 20.0 Years smoked: 35 Smoking pack-years: 35.00 Smoking status: Former smoker Tobacco type: cigarettes Second hand tobacco smo
--- NOTE | 2022-12-18 11:27 | WPDNEURCNPN ---
Consult date: 12/18/22 HPI: Felix Galindo is a 61 year old male [facility] Past Medical History Medical History CHF (congestive heart failure) Chronic anticoagulation CTE (chronic traumatic encephalopathy) Depression Essential hypertension GERD (gastroesophageal reflux disease) Hyperlipidemia Insomnia Migraines Obstructive sleep apnea Pacemaker Paroxysmal atrial fibrillation With last episode approximately 2005 when he has pacemaker placed Peripheral neuropathy PTSD (post-traumatic stress disorder) Sick sinus syndrome due to SA node dysfunction Status post pacemaker and defibrillator 2005 Traumatic brain injury Surgical History Surgical History History of colonoscopy with polypectomy (~2009) History of esophagogastroduodenoscopy (EGD) (~2009) History of facial surgery Status post open reduction with internal fixation (ORIF) of fracture of ankle (~1986) Status post open reduction with internal fixation of fracture Right knee Family History Family History Grandparent Acute myocardial infarction Chronic obstructive pulmonary disease Diabetes mellitus Hypertension Mother History of blood clots Social History Social History Social History: The patient is . 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 He smoked a pack of cigarettes per day for 35 years. He had a history of former heavy alcohol use but quit drinking in 2001. He denies illicit substance use. Code status: Full code Surrogate decision maker: Smoking packs per day: 1 Smoking cigarettes per day: 20.0 Years smoked: 35 Smoking pack-years: 35.00 Smoking status: Former smoker Tobacco type: cigarettes Second hand tobacco smoke exposure: Yes Smoking end date: 11/24/09 Alcohol intake: former Substance use: never Lack of Transportation: No Lack of Food: Never True Current Housing: I Have Housing Concerned About Future Housing: No Difficulty Paying Gas/Electric Bills: YES Difficulty Paying for Meds: No Currently Unemployed: No Education: Master's Degree or Higher Difficulty w/ Childcare or Family Care: No Gender identity (if verbalized by the patient): Male Spiritual care concerns: No Meds Home Medications and Allergies Home Medications Medication Instructions Recorded Confirmed Type atorvastatin 40 mg tablet 40 mg PO DAILY 07/06/20 12/17/22 History carvedilol 25 mg tablet 25 mg PO BID 07/06/20 12/17/22 History diazepam 10 mg tablet 10 mg PO DAILY 07/06/20 12/17/22 History rivaroxaban 20 mg tablet (Xarelto) 20 mg PO DAILY 07/06/20 12/17/22 History tramadol 50 mg tablet 50 mg PO Q3-6H PRN Pain 07/06/20 12/17/22 History trazodone 100 mg tablet 100 mg PO DAILY 07/06/20 12/17/22 History donepezil 10 mg tablet 10 mg PO HS 12/17/22 12/17/22 History gabapentin 800 mg tablet 800 mg PO TID 12/17/22 12/17/22 History memantine 10 mg tablet 10 mg PO BID 12/17/22 12/17/22 History Allergies Allergy/AdvReac Type Severity Reaction Status Date / Time meperidine Allergy Severe heart Verified 12/17/22 01:51 stopped methadone Allergy Mild Unknown Verified 12/16/22 21:25 shellfish derived Allergy Unknown Verified 12/16/22 21:25 Vital Signs Vital Signs - 24 hr 12/17/22 11:54 12/17/22 11:54 12/17/22 12:00 Temperature 36.1 C L Pulse Rate 85 73 Respiratory Rate 21 H Blood Pressure 98/63 L 103/66 Pulse Oximetry 97 Oxygen Delivery 12/17/22 12:00 12/17/22 14:00 12/17/22 16:00 Temperature Pulse Rate 73 78 71 Respiratory Rate Blood Pressure Pulse Oximetry 97 Oxygen Delivery Room Air 12/17/22 16:00 12/17/22 16:45 12/17/22 18:00 Temperature 35.7 C L Pulse Rate 73 77 Respiratory Rate 16
--- NOTE | 2022-12-18 11:35 | PM.DS ---
DS: Admitting Diagnosis Discharge Date 12/18/2022 Admitting Diagnosis chest pain DS: Discharge Diagnosis Discharge Diagnosis (1) Atypical chest pain: Code(s): R07.89 - Other chest pain Status: Acute (2) Paresthesia: Code(s): R20.2 - Paresthesia of skin Status: Acute (3) Dizzy: Code(s): R42 - Dizziness and giddiness Status: Acute (4) Esophagitis with gastritis: Code(s): K29.70 - Gastritis, unspecified, without bleeding; K20.90 - Esophagitis, unspecified without bleeding Status: Acute (5) Syncope: Qualifiers: Syncope type: unspecified Qualified Code(s): R55 - Syncope and collapse Code(s): R55 - Syncope and collapse Status: Acute DS: Summary Hospital Course Reason for hospitalization: 61-year-old male with past medical history of cardiomyopathy, sick sinus syndrome status post pacemaker paroxysmal atrial fibrillation, CVA, traumatic brain injury, chronic traumatic encephalopathy and GERD who presented to the ER via private vehicle with chest pain.? The patient reports that he had pain in his left lower ribcage in epigastric area on the left side that was in odd sensation.? He describes it is a sensation similar to when he has neuropathy.? The pain was reportedly an 8/10 intensity Tee to ER documentation.? Pain did not radiate.? He denied having any nausea or diaphoresis at the time of my evaluation but had evidently reported to the ER staff.? The patient does have a history of short-term memory difficulties due to his chronic traumatic encephalopathy.? He states that when he went in to triage to get is vitals take id he lost consciousness and fell.? He states that he struck his head and shoulder.? However there was not documentation of this.? Nursing staff? tells me the patient fell but ?popped up immediately. He stated that he was placed into a wheelchair intake into the waiting room.? The patient reports that while he was sitting in the waiting room in a wheelchair he slumped over to the side and was unresponsive.? He came around after a brief interval.? He was not confused or postictal.? Evidently when nursing staff was administering IV medications (it is unclear whether this was pain medications or Zofran) in the ER the patient stared off into space for 5-10 seconds and stated that he felt disoriented afterwards.? Does have a history of like intermittent dizziness, he will of intermittent fluctuations in his vision that he relates to changes in his age.? He denies double vision.? The patient reports that his actual chest symptoms had resolved around the time he came into the ER.? ER so physician documentation states patient's pain improved after GI cocktail.? CTA of the chest abdomen pelvis were performed in the ER to rule out aortic dissection.? CT demonstrated mild esophagitis and gastritis. However, he is now complaining of Right shoulder pain due to his falling over in the ER.? He reports that he has severe rotator cuff damage and needs to have time off to have his rotator cuff repaired.? His pain is rid her cuff is a 10/10.? He states that his home tramadol only takes the edge off of the pain.? He still states he cannot get his rotator cuff repaired right now because they were dealing with his having stage IV cervical cancer and he has to be able to take care of her.? He has a history of GERD noted on records from [facility].? I reviewed the patient's records from his my chart application.? He is not on PPI therapy. He has a distant history of obstructive sleep apnea based states that this resolved after he lost weight.? He still has a dental appliance that he uses occasionally.? He states that his 's says he no longer snores.? He does have a history of seizures with his last 1 being approximately 2006.? He sees Dr. Ceasar Whitten at [facility] for his neurologic complaints. He reports that he has a free lead from his pacemaker defibrillator in his chest.
--- NOTE | 2022-12-19 09:19 | WPDNEUROLOGY ---
Neurology EEG Report General Information Date of Study: 12/18/22 TEST eeg DIAGNOSIS possible seizure activity CONDITION OF RECORDING drowsy and sleep EEG NUMBER 23-21 CLINICAL HISTORY patient has history of chronic traumatic encephalopathy EEG DESCRIPTION background rhythm consists of low to medium voltage 9 to 11 hertz per 2nd alpha admixed with waxing and waning low-voltage 15 to 20 hertz per 2nd beta activity during drowsiness. Bilateral symmetrical sleep activity seen during sleep. Hyperventilation not done. Photic stimulation not done. Non paroxysmal. Nonfocal. Nonlateralizing. IMPRESSION Normal record during drowsiness and sleep.
== END 2022-12-18 14:39 | disposition home or self-care (01) ==
LOC: ANHED 23:51 → ANHIMU 12-17 02:21
PROVIDERS: Emergency Medicine; Admitting Provider Internal Medicine; Emergency Provider Preventive Medicine Aerospace Medicine; Visit Provider Internal Medicine
DX: R07.89 Other chest pain (principal); R20.2 Paresthesia of skin; R42 Dizziness and giddiness; K29.70 Gastritis, unspecified, without bleeding; R55 Syncope and collapse; K20.90 Esophagitis, unspecified without bleeding; R10.13 Epigastric pain; M25.512 Pain in left shoulder; W19.XXXA Unspecified fall, initial encounter; R61 Generalized hyperhidrosis; R11.0 Nausea; I11.0 Hypertensive heart disease with heart failure; I50.9 Heart failure, unspecified; I49.5 Sick sinus syndrome; F43.10 Post-traumatic stress disorder, unspecified; I42.8 Other cardiomyopathies; E78.5 Hyperlipidemia, unspecified; I48.0 Paroxysmal atrial fibrillation; G62.9 Polyneuropathy, unspecified; F32.A Depression, unspecified; K21.9 Gastro-esophageal reflux disease without esophagitis; Z95.810 Presence of automatic (implantable) cardiac defibrillator; Z87.820 Personal history of traumatic brain injury; F07.81 Postconcussional syndrome; Z87.891 Personal history of nicotine dependence; Z79.01 Long term (current) use of anticoagulants; Z79.891 Long term (current) use of opiate analgesic; Z79.899 Other long term (current) drug therapy
CPT/HCPCS: 36415; 70450; 71046; 71275; 74174; 78452; 80048; 80053; 83690; 84484; 85025; 85610; 85730; 93005; 93017; 95816; 96374; 96375; 99285; A9270; A9502; C9113; G0378; J2270; J2405; J2785; Q9967

== ENCOUNTER 2023-03-02 18:35 | Inpatient (IN) | payer MEDICARE, SELFPAY ==
[2023-03-02] VITALS (26 sets, daily range): BP systolic 72–106; BP diastolic 32–70; PULSE 67–120; RESP 10–20; TEMP 36.8–39.7; O2SAT 80–100
--- NOTE | ~2023-03-02 | CT_ITS ---
EXAMINATION: CTA chest abdomen pelvis DATE: 03/02/2023 20:00 INDICATION: Found down . TECHNIQUE: Computed tomography (CT) of the chest, abdomen, and pelvis was performed with 100 mL Omnip aque-350 intravenous contrast in the arterial phase. Automated exposure control and iterative reconst ruction technique were employed. 3-D reconstructions were performed by the technologist on a separate workstation. The dose-length product was 1253.32 mGy-cm. COMPARISON: None FINDINGS: CHEST: Thoracic aorta: No significant dilation or calcification. No dissection. Lung parenchyma and airways: Motion artifact. Lungs and airways are clear. Thoracic inlet, axillae and chest wall: No thyroid or soft tissue mass. No axillary lymphadenopathy. Left chest pacer/AICD. Mediastinum: No mass or lymphadenopathy. Heart and pericardium: Normal heart size. No pericardial effusion. Coronary artery calcifications: Absent. Pleura: No effusion or mass. Thoracic bones: No acute osseous finding in the chest. ABDOMEN/PELVIS: Liver: Normal. Biliary/Gallbladder: Gallbladder is normal. No bile duct dilation. Pancreas: Fatty infiltration. Spleen: Normal. Adrenals:No mass. Kidneys: No mass, stone, or hydronephrosis. GI tract: Mild distal esophageal and gastric wall edema. No small or large bowel dilation. Normal layla endix. Diverticulosis without diverticulitis. Mostly fluid-filled colon as can be seen with diarrheal illness. Mesentery/Peritoneum: No ascites, mass, or free air. Retroperitoneum: No mass Atherosclerotic abdominal aortic and/or arterial calcifications. No aneurysm , dissection, significant stenosis, or occlusion. Pelvis: Urinary bladder is decompressed by a Strauss catheter. Prostatomegaly. Soft Tissues: Soft tissues and body wall unremarkable. Abdominopelvic bones: No acute osseous finding in the abdomen/pelvis. IMPRESSION: Mild esophagitis/gastritis. Fluid-filled colon, as can be seen with diarrheal illness. Otherwise, no acute process detected in the chest, abdomen, or pelvis. Reviewed, dictated and finalized at location K. IMPRESSION: Mild esophagitis/gastritis. Fluid-filled colon, as can be seen with diarrheal i llness. Otherwise, no acute process detected in the chest, abdomen, or pelvis.
--- NOTE | ~2023-03-02 | XR_ITS ---
EXAMINATION: XR chest 1V portable Exam Date/Time: 03/02/2023 21:27 CDT HISTORY: S/P R IJ Comparison: 12/16/2022. RESULT: Lines, tubes, and devices: Right IJ central line terminating in the distal SVC. Right chest AICD wit h an abandoned lead. Lungs and pleura: Subtle reticulonodular opacities and cuffing. Cardiomediastinal silhouette: Stable. Other: No acute osseous or upper abdominal finding. IMPRESSION: Right IJ central venous line, in good position. Mild interstitial edema versus bronchiolitis. Reviewed, dictated and finalized at location K.
--- NOTE | ~2023-03-02 | CT_ITS ---
EXAMINATION: CT brain wo con DATE: 03/02/2023 19:57 INDICATION: AMS . TECHNIQUE: Computed tomography (CT) of the head was performed without intravenous contrast. The mA wa s adjusted according to patient size. Iterative reconstruction technique was employed. The dose-lengt h product was 681.00 mGy-cm. COMPARISON: None. FINDINGS: No acute intracranial hemorrhage or extra-axial fluid collection. No hydrocephalus, mass, or herniation. No acute ischemic infarct. Unremarkable dural venous sinus attenuation. No acute osseous abnormality. Mucosal thickening at the right frontal ethmoid recess, the remaining aerated spaces are clear. Mild atrophy and chronic white matter change. Mild atherosclerotic intracranial calcification. Log Clerk ior fossa arachnoid cyst versus prominent cisterna magna. IMPRESSION: No acute intracranial process. Reviewed, dictated and finalized at location K.
--- NOTE | ~2023-03-02 | US_ITS ---
EXAMINATION: US renal BI DATE: 03/03/2023 16:50 INDICATION: Acute kidney injury. TECHNIQUE: Multiple ultrasound grayscale images of the kidneys were obtained. COMPARISON: CT abdomen and pelvis 03/02/2023 FINDINGS: The right kidney measures 11.3 x 6.6 x 5.9 cm. The left kidney measures 13.0 x 6.5 x 6.6 cm. The kidn eys demonstrate normal parenchymal echogenicity. There is no hydronephrosis. The bladder is decompres sed by a Strauss catheter. IMPRESSION: 1. Normal kidneys. No hydronephrosis. Reviewed, dictated and finalized at location A.
--- NOTE | ~2023-03-02 | US_ITS ---
EXAMINATION: US carotid duplex BI DATE: 03/03/2023 16:50 INDICATION: Syncope. TECHNIQUE: Grayscale, color Doppler, and pulsed Doppler images of the cervical carotid arteries were obtained. The degree of vessel stenosis is placed in one of the following categories: normal, <50%, 5 0-69%, >=70% but less than near-occlusion, near-occlusion, or total occlusion. Note that percent sten osis relative to normal distal artery lumen diameter is indirectly measured from velocity measurement s as described by Sherif, et al. Radiology 2003; 229:340-346. COMPARISON: None. FINDINGS: RIGHT: The right common carotid artery (CCA) peak systolic velocity (PSV) is 74 cm/s. The right internal car otid artery (ICA) PSV is 56 cm/s. The right ICA end-diastolic velocity (EDV) is 19 cm/s. The right IC A/CCA PSV ratio is 0.8. Grayscale and color Doppler images yield an estimate of <50% diameter reducti on from plaque in the ICA. There is antegrade flow in the right vertebral artery. LEFT: The left CCA PSV is 99 cm/s. The left ICA PSV is 90 cm/s. The left ICA EDV is 25 cm/s. The left ICA/C CA PSV ratio is 0.9. Grayscale and color Doppler images yield an estimate of <50% diameter reduction from plaque in the ICA. There is antegrade flow in the left vertebral artery. IMPRESSION: 1. <50% stenosis in the right internal carotid artery. 2. <50% stenosis in the left internal carotid artery. Reviewed, dictated and finalized at location A.
--- NOTE | ~2023-03-02 | US_ITS ---
US abdomen limited INDICATION: Elevated liver function tests PROCEDURE: Realtime right upper abdominal ultrasound. COMPARISON: 03/03/2023 FINDINGS: The pancreas is largely obscured by bowel content. Liver echotexture is normal without foc al mass or intrahepatic biliary dilatation. There is normal directional flow in the portal vein. The gallbladder is normal without stones, gallbladder wall thickening or pericholecystic fluid. Comm on bile duct measures 4.8 mm. No sonographic Lizarraga's sign. IMPRESSION: 1: Normal limited abdominal ultrasound. Reviewed, dictated and finalized at location L.
--- NOTE | 2023-03-02 19:00 | ECG_ITS ---
Measurements Intervals [place] Rate: 69 P: NE: 0 QRS: 122 QRSD: 141 T: 35 QT: 374 QTc: 403 Interpretive Statements ELECTRONIC VENTRICULAR PACEMAKER NO FURTHER INTERPRETATION POSSIBLE COMPARED TO ECG 12/16/2022 18:54:31 NO SIGNIFICANT CHANGES Electronically Signed On 03-03-2023 16:52:42 CDT by Madi Zavala M.D.
[2023-03-02] MEDS: SODIUM CHLORIDE 0.9% IV 1,000 ML 999 ML ×4 (19:02→20:27)
--- NOTE | 2023-03-02 19:03 | ED.GENADULT ---
HPI - General Adult General Chief complaint: Altered Mental Status <Regan Briggs MD - Last Filed: 03/13/23 12:05> Stated complaint: decreased LOC, AMS, hypoxia <Regan Briggs MD - Last Filed: 03/13/23 12:05> Time Seen by Provider: 03/02/23 18:53 <Regan Briggs MD - Last Filed: 03/13/23 12:05> History of Present Illness HPI narrative: 62-year-old male presented the emergency department for evaluation after being found down in his yard. Patient was found unresponsive in his yard after being down for an unknown amount of time. Upon arrival by EMS patient was found to be hypoglycemic and ANO x0. Patient was started on D10 by an IV in the right AC and patient was transported to [place]. Upon arrival to the ED patient was diaphoretic and hypoxic. Patient is commanding and moving all legs equally patient's eyes are pinpoint but patient is responsive. Patient is aware that he is at an hospital but patient is unaware of what else happened today. Patient's temperature was 103 upon arrival. Patient was treated with IV Tylenol. Ice packs were applied to groin and neck and conductive cooling was initiated. Patient does have a prior history of opioid use but does have an allergy to methadone. Patient denied using any drugs today. <Regan Briggs MD - Last Filed: 03/13/23 12:05> Related Data Home medications: Home Medications Medication Instructions Recorded Confirmed atorvastatin 40 mg tablet 20 mg PO HS 07/06/20 03/03/23 trazodone 100 mg tablet 200 mg PO HS 07/06/20 03/03/23 donepezil 10 mg tablet 10 mg PO HS 12/17/22 03/03/23 gabapentin 800 mg tablet 800 mg PO TID 12/17/22 03/03/23 memantine 10 mg tablet 10 mg PO BID 12/17/22 03/03/23 cholecalciferol (vitamin D3) 25 25 mcg PO DAILY 03/03/23 03/03/23 mcg (1,000 unit) tablet pantoprazole 40 mg tablet,delayed 40 mg PO QAM 03/03/23 03/03/23 release tizanidine 4 mg tablet 4 mg PO Q8H PRN Moderate Pain 03/03/23 03/03/23 (Scale Score 5-6) <Regan Briggs MD - Last Filed: 03/13/23 12:05> Allergies/adverse reactions: Allergies Allergy/AdvReac Type Severity Reaction Status Date / Time meperidine Allergy Severe heart Verified 03/02/23 19:16 stopped methadone Allergy Mild Unknown Verified 03/02/23 19:16 shellfish derived Allergy Unknown Verified 03/02/23 19:16 <Regan Briggs MD - Last Filed: 03/13/23 12:05> [facility] Past Medical History Medical History: Medical History CHF (congestive heart failure) Chronic anticoagulation CTE (chronic traumatic encephalopathy) Depression Essential hypertension GERD (gastroesophageal reflux disease) Hyperlipidemia Insomnia Migraines Obstructive sleep apnea Pacemaker Paroxysmal atrial fibrillation With last episode approximately 2005 when he has pacemaker placed Peripheral neuropathy PTSD (post-traumatic stress disorder) Sick sinus syndrome due to SA node dysfunction Status post pacemaker and defibrillator 2005 Traumatic brain injury <Regan Briggs MD - Last Filed: 03/13/23 12:05> Surgical History Surgical History: Surgical History History of colonoscopy with polypectomy (~2009) History of esophagogastroduodenoscopy (EGD) (~2009) History of facial surgery Status post open reduction with internal fixation (ORIF) of fracture of ankle (~1986) Status post open reduction with internal fixation of fracture Right knee <Regan Briggs MD - Last Filed: 03/13/23 12:05> Family History Family History: Family History Grandparent Acute myocardial infarction Chronic obstructive pulmonary disease Diabetes mellitus Hypertension Mother History of blood clots <Regan Briggs MD - Last Filed: 03/13/23 12:05> Social History Social History: Social History (Reviewed 03/03/23 @ 12:5
--- NOTE | 2023-03-02 19:03 | PC.NURSE ---
Verbal order received from Dr. Briggs for 3L of IV fluids and 1000mg of IV Acetaminophen
[2023-03-02 19:19] LABS: Basophils Absolute Auto 0.1 K/mm3 (0.0-0.1); Basophils Percent Auto 0.4 % (0.2-1.2); Eosinophils Absolute Auto 0.1 K/mm3 (0-0.3); Eosinophils Percent Auto 0.6 % (0-4.4); Hemoglobin 11.5 g/dL (14.0-18.0); Immature Granulocyte Absolute 0.57 K/mm3 (0.00-0.031); Lymphocytes Absolute Auto 1.42 K/mm3 (0.9-3.2); Lymphocytes Percent Auto 12.6 % (18.3-44.2); Mean Corpuscular HGB Conc 33.8 g/dl (32-36); Mean Corpuscular Hemoglobin 32.2 pg (26-34); Mean Corpuscular Volume 95.2 fl (80-100); Mean Platelet Volume 9.3 fl (7.4-10.4); Monocytes Absolute Auto 0.8 K/mm3 (0.1-0.6); Monocytes Percent Auto 6.6 % (2.6-8.5); Neutrophils Absolute Auto 8.4 K/mm3 (1.3-6.7); Neutrophils Percent Auto 74.8 % (45.5-73.1); Platelet Count Result 181 k/mm3 (150-375); Red Blood Count 3.57 M/mm3 (4.6-6.20); Red Cell Distribution Width 11.8 % (11.5-14.5); White Blood Count 11.3 K/mm3 (4.5-10.0)
[2023-03-02 19:31] LABS: Alanine Aminotransferase 26 U/L (6-50); Albumin Level 3.1 g/dL (3.5-5.1); Alkaline Phosphatase 39 U/L (38-126); Anion Gap 9 mmol/L (8-16); Aspartate Amino Transferase 30 U/L (17-59); Bilirubin,Total 0.9 mg/dL (0.2-1.3); Blood Urea Nitrogen 13 mg/dL (9-20); Calcium 6.5 mg/dL (8.4-10.2); Carbon Dioxide 17 mmol/L (22-30); Chloride 114 mmol/L (98-107); Estimated CRCL calculation 55 ml/min; Estimated Glomerular Filt Rate 52; Glucose 100 mg/dL (65-110); Sodium 140 mmol/L (137-145)
[2023-03-02 19:33] LABS: INR 2.4; Partial Thromboplastin Time 32.2 SECONDS (22.3-36.8); Prothrombin Time 25.1 Seconds (11.1-14.7)
[2023-03-02 19:37] LABS: Appearance Urine Cloudy (Clear); Bacteria Urine None Seen /hpf; Bilirubin Urine Negative (Negative); Blood Urine 1+ (Negative); Color Urine Yellow (Yellow); Glucose Urine UA Negative (Negative); Ketones Urine Negative (Negative); Leukocyte Esterase Ur Negative LEU/UL (Negative); Mucus Urine Present /lpf; Need Manual Microscopic Reviewed; Nitrate Urine Negative (Negative); Non Pathogenic Casts >20; Protein Urine 2+ mg/dL (Negative); Specific Grav Ur 1.016 (1.001-1.035); Spermatozoa Urine Present; Squamous Epithelial Cell Urine None seen /hpf (Few); Urobilinogen Urine 0.2 mg/dL (<2.0); WBC Urine 0-5 /hpf
[2023-03-02 19:39] LABS: Add Urine Microscopic? YES
[2023-03-02 19:42] LABS: Barbiturate Screen Urine Negative (Negative); Benzodiazepines Screen Urine Positive (Negative)
[2023-03-02 19:43] LABS: Amphetamine Screen Urine Positive (Negative); Cannabinoid Screen Urine Negative (Negative); Cocaine Screen Urine Negative (Negative); Methadone Screen Urine Negative (Negative); Opiate Screen Urine Negative (Negative); Phencyclidine Screen Urine Negative (Negative)
[2023-03-02 19:48] LABS: Creatine Kinase 357 U/L (55-170)
[2023-03-02 20:04] LABS: Troponin I 0.049 ng/mL (0.000-0.034)
--- NOTE | 2023-03-02 20:04 | PC.NURSE ---
Cooling measures discontinued
[2023-03-02] MEDS: SODIUM CHLORIDE 0.9% IV 1,000 ML 999 ML IV CONT (20:06)
--- NOTE | 2023-03-02 21:01 | PC.NURSE ---
EDP Zych at bedside for central line placement
[2023-03-02] MEDS: SODIUM CHLORIDE 0.9% IV 1,000 ML 150 ML IV CONT (21:37)
[2023-03-02] MEDS: NOREPINEPHRINE 8 MG/D5W 250 ML 8 MG/250 ML BAG 9.38 MG IV CONT (21:51)
--- NOTE | 2023-03-02 22:15 | PM.IMHP ---
H&P: HPI History of Present Illness Date/Time: 03/02/23 22:15 Chief Complaint: Syncope Narrative: This is a 62-year-old male with past medical history significant for chronic back pain, dementia, dyslipidemia, status post AICD placement, sick sinus syndrome, congestive heart failure, chronic traumatic encephalopathy, GERD obstructive sleep apnea paroxysmal atrial fibrillation peripheral neuropathy traumatic brain injury. Patient was found down laying on his yard by paramedics. Patient has no recollection of events initially now he remembers being in his yd and found his self laying on the floor crawling towards his house. Patient was disoriented he was found to have a low blood sugar and a temp of 103? preliminary workup has been essentially nonrevealing. Patient was placed on cooling blanket later required vasopressor due to hypotension. Patient is been admitted for further evaluation management and treatment. Had been in his usual state of health prior to this up until this point is at bedside and confirms this no recent nausea vomiting diarrhea abdominal pain chest pain shortness of breath cough sputum production recent or recurrent falls no generalized weakness patient does have chronic back pain on chronic pain management. Preliminary workup was significant for CT head FINDINGS: No acute intracranial hemorrhage or extra-axial fluid collection. No hydrocephalus, mass, or herniation. No acute ischemic infarct. Unremarkable dural venous sinus attenuation. No acute osseous abnormality. Mucosal thickening at the right frontal ethmoid recess, the remaining aerated spaces are clear. Mild atrophy and chronic white matter change. Mild atherosclerotic intracranial calcification. Posterior fossa arachnoid cyst versus prominent cisterna magna. IMPRESSION:? No acute intracranial process. CT angiogram chest: FINDINGS: CHEST: Thoracic aorta: No significant dilation or calcification. No dissection. Lung parenchyma and airways: Motion artifact. Lungs and airways are clear. Thoracic inlet, axillae and chest wall: No thyroid or soft tissue mass. No axillary lymphadenopathy. Left chest pacer/AICD. Mediastinum: No mass or lymphadenopathy. Heart and pericardium: Normal heart size. No pericardial effusion. Coronary artery calcifications: Absent. Pleura: No effusion or mass. Thoracic bones: No acute osseous finding in the chest. ABDOMEN/PELVIS: Liver: Normal.? Biliary/Gallbladder: Gallbladder is normal. No bile duct dilation. Pancreas: Fatty infiltration. Spleen: Normal. Adrenals:No mass. Kidneys: No mass, stone, or hydronephrosis. GI tract: Mild distal esophageal and gastric wall edema. No small or large bowel dilation. Normal appendix. Diverticulosis without diverticulitis. Mostly fluid-filled colon as can be seen with diarrheal illness. Mesentery/Peritoneum: No ascites, mass, or free air. Retroperitoneum: No mass Atherosclerotic abdominal aortic and/or arterial calcifications. No aneurysm, dissection, significant stenosis, or occlusion. Pelvis: Urinary bladder is decompressed by a Strauss catheter. Prostatomegaly. Soft Tissues: Soft tissues and body wall unremarkable. Abdominopelvic bones:? No acute osseous finding in the abdomen/pelvis. IMPRESSION: Mild esophagitis/gastritis. Fluid-filled colon, as can be seen with diarrheal illness. Otherwise, no acute process detected in the chest, abdomen, or pelvis. Review of Systems Review of Systems: Found down unresponsive, hyperthermia. Constitutional: Constitutional: Denies chills, Denies fatigue, Denies fever(s), Denies lethargy, Denies malaise, Denies night sweats, Denies poor appetite and Denies weakness Eyes: Eyes: Denies change in vision ENT: Denies dysphagia and Denies odynophagia Cardiovascular: Cardiovascular: Denies chest pain, Denies edema, Denies lightheadedness, Denies palpitations, Denies dyspnea on exertion and Denies paroxys
[2023-03-02 22:16] LABS: Reflex Lactic Acid Yes or No Add Lactic
[2023-03-02 23:10] LABS: Glucose Point of Care 152 mg/dl (65-105)
[2023-03-02 23:10] LABS: Glucose Point of Care 249 mg/dl (65-105)
--- NOTE | 2023-03-02 23:57 | PC.NURSE ---
Report received from CATHY Bolton.
[2023-03-02 23:59] LABS: Lactic Acid 0.7 mmol/L (0.7-2.0)
[2023-03-03] VITALS (56 sets, daily range): BP systolic 75–120; BP diastolic 47–79; PULSE 81–101; RESP 9–21; TEMP 27.2–37.7; O2SAT 96–100; BMI 31.6
--- NOTE | 2023-03-03 | ECHO_ITS ---
Patient Info Name: Felix Galindo Age: 62 years : 1960 Gender: Male Ht: 72 in Wt: 211 lbs BSA: 2.22 m2 HR: 87 bpm BP: 98 / 59 mmHg Heart Rhythm: Sinus Rhythm, Paced Technical Quality: Fair Exam Date: 03/03/2023 8:29 AM Exam Location: [facility] Patient Status: Inpatient Admit Date: 03/02/2023 Staff Ordering Physician: David Davis MD Hosted Services Analyst: Andreina Palm RDCS Attending Provider: David Davis MD Referring Physician: Ryan FISHRE; Exam Type: CA echo doppler color flow Study Info Indications - hypotension Complete two-dimensional, color flow and Doppler transthoracic echocardiogram is performed. Summary 1. Complete two-dimensional, color flow and Doppler transthoracic echocardiogram is performed. 2. Left ventricular chamber dimension is normal. 3. Left ventricular systolic function is normal, estimated at 55-60%. 4. There is mildly increased left ventricular wall thickness. 5. Left ventricular septal wall motion is abnormal with septal motion related to bundle branch block. 6. There is no aortic valve stenosis. 7. There is trace mitral valve regurgitation. 8. There is trace tricuspid valve regurgitation. 9. No pulmonary hypertension, estimated pulmonary arterial systolic pressure is 30 mmHg. Left Ventricle Left ventricular chamber dimension is normal. Left ventricular systolic function is normal, estimated at 55-60%. There is mildly increased left ventricular wall thickness. Left ventricular septal wall motion is abnormal with septal motion related to bundle branch block. The left ventricular diastolic function is grade I diastolic dysfunction. Right Ventricle Right ventricular chamber dimension is normal. Right ventricular systolic function is normal. Linear artifact in right ventricle suggestive of catheter(s), pacemaker lead(s), or ICD lead(s). Left Atria Left atrial chamber dimension is normal. Right Atria Right atrial chamber dimension is normal. Linear artifact in the right atrium suggestive of catheter(s), pacemaker lead(s), or ICD lead(s). Aortic Valve The aortic valve is not well visualized. There is mild aortic valve sclerosis. There is no aortic valve stenosis. There is no aortic valve regurgitation. Pulmonic Valve The pulmonic valve is not well visualized. Mitral Valve The mitral valve has thickened leaflets. There is trace mitral valve regurgitation. The mitral valve annulus is mildly calcified. Tricuspid Valve The tricuspid valve leaflets are normal. There is trace tricuspid valve regurgitation. No pulmonary hypertension, estimated pulmonary arterial systolic pressure is 30 mmHg. Pericardium/Pleural The pericardium appears normal. There is small pericardial effusion. Inferior Vena Cava Normal inferior vena cava with >50% collapse upon inspiration consistent with normal right atrial pressure, 5 mmHg. Aorta The aortic root size at the sinus of Valsalva is normal. There is mild aortic atherosclerosis. Left Ventricular Outflow Tract Name Value Normal LVOT 2D LVOT Diameter 2.0 cm LVOT Doppler LVOT Peak Gra
[2023-03-03 00:19] LABS: Troponin I 0.131 ng/mL (0.000-0.034)
--- NOTE | 2023-03-03 01:12 | ADMGEN ---
This patient, Felix Galindo, was admitted to Intensive Care Unit-8. Patient/family oriented to hospital policies and general routines including ID bracelet, bed and alarms, visiting hours, pain management, procedures, bathroom and other care routines, personal items, smoking policy, room service/diet, and visiting hours. Information on how to activate the Rapid Response Team has been discussed. Patient/Family are encouraged to report perceived risks to care and to ask questions if they do not understand what they are told or what they should do.
[2023-03-03] MEDS: AMPICILLIN SULB 3 GM/NS 100 ML 3 GM/100 ML VIAL IVPB ×4 (01:50→17:49)
--- NOTE | 2023-03-03 01:55 | ADMGEN ---
This patient, Felix Galindo, was admitted to Intensive Care Unit-8 on 03-03-23 at 0110. Patient/family oriented to hospital policies and general routines including ID bracelet, bed and alarms, visiting hours, pain management, procedures, bathroom and other care routines, personal items, smoking policy, room service/diet, and visiting hours. Information on how to activate the Rapid Response Team has been discussed. Patient/Family are encouraged to report perceived risks to care and to ask questions if they do not understand what they are told or what they should do.
[2023-03-03 03:06] LABS: Creatine Kinase 9731 U/L (55-170)
[2023-03-03] MEDS: LACTATED RINGERS 1,000 ML 125 ML IV CONT ×2 (04:15→11:21)
[2023-03-03 04:50] LABS: Basophils Percent Auto 0.2 % (0.2-1.2); Eosinophils Percent Auto 0.1 % (0-4.4); Hematocrit 41.4 % (42.0-52.0); Hemoglobin 14.3 g/dL (14.0-18.0); Immature Granulocyte Absolute 0.11 K/mm3 (0.00-0.031); Immature Granulocyte Percent A 1.1 % (0-0.5); Lymphocytes Absolute Auto 1.11 K/mm3 (0.9-3.2); Mean Corpuscular HGB Conc 34.5 g/dl (32-36); Mean Corpuscular Hemoglobin 31.9 pg (26-34); Mean Corpuscular Volume 92.4 fl (80-100); Mean Platelet Volume 9.4 fl (7.4-10.4); Monocytes Absolute Auto 1.2 K/mm3 (0.1-0.6); Monocytes Percent Auto 12.2 % (2.6-8.5); Neutrophils Absolute Auto 7.6 K/mm3 (1.3-6.7); Neutrophils Percent Auto 75.4 % (45.5-73.1); Platelet Count Result 162 k/mm3 (150-375); Red Blood Count 4.48 M/mm3 (4.6-6.20); Red Cell Distribution Width 11.9 % (11.5-14.5); White Blood Count 10.1 K/mm3 (4.5-10.0)
[2023-03-03 05:02] LABS: Anion Gap 3 mmol/L (8-16); Blood Urea Nitrogen 16 mg/dL (9-20); Calcium 7.4 mg/dL (8.4-10.2); Carbon Dioxide 23 mmol/L (22-30); Chloride 113 mmol/L (98-107); Estimated CRCL calculation 60 ml/min; Estimated Glomerular Filt Rate 52; Glucose 111 mg/dL (65-110); Potassium 3.6 mmol/L (3.4-5.0); Sodium 139 mmol/L (137-145)
[2023-03-03 06:17] LABS: Cortisol Random 6.19 ug/dL
[2023-03-03] MEDS: MEMANTINE 10 MG TABLET PO ×2 (08:55→18:00)
[2023-03-03] MEDS: GABAPENTIN 400 MG CAPSULE 800 MG PO ×3 (08:55→18:00)
--- NOTE | 2023-03-03 09:12 | WPDCNINT ---
Assessment and Plan Assessment and plan (1) Syncope: Qualifiers: Syncope type: unspecified Qualified Code(s): R55 - Syncope and collapse Code(s): R55 - Syncope and collapse Status: Acute Assessment and Plan: Patient presented with syncope and was found down unresponsive in his yard for unknown amount of time. -patient was found to be hypoglycemic in the field given D10. -when he arrived in the ER he was hyperthermic and hypoxic -he is currently awake, alert, oriented x3 -stated that he had not eaten much food all day yesterday but otherwise does not remember the sequence of events leading to his syncope and arrival to the ER. (2) Hyperthermia: Code(s): R50.9 - Fever, unspecified Status: Acute Assessment and Plan: Patient was hypothermic likely related to probably heat exhaustion -patient was cooled with ice packs to his neck and groin along with cooling blanket -body temperatures have been within normal limits (3) Shock: Code(s): R57.9 - Shock, unspecified Status: Acute Assessment and Plan: Hypotension, received 5 L IV fluid bolus despite that his blood pressures remained low in the ER, central line was inserted in the right IJ and patient was started on Levophed -patient states his normal blood pressures are 90s/60s, -will titrate Levophed to blood pressure of 90s/60s, continue Levophed for adequate end organ perfusion -patient with acute kidney injury likely related to hypotension, rhabdomyolysis, shock -continue to monitor urine output -patient started on Unasyn and vancomycin for possible aspiration/shock (4) Rhabdomyolysis: Code(s): M62.82 - Rhabdomyolysis Status: Acute Assessment and Plan: Significantly elevated CK level with acute kidney injury -status post 5 L IV fluid bolus in the ER -currently on maintenance IV fluids at 125 mL/hour -will repeat CK levels this afternoon (5) Acute kidney injury: Code(s): N17.9 - Acute kidney failure, unspecified Status: Acute Assessment and Plan: Acute kidney injury likely related to shock, rhabdomyolysis, hypotension -patient received 5 L IV fluid bolus in the ER -continue maintenance IV fluids as above -UA positive for protein is a blood -will obtain renal ultrasound -check urine lytes -consult nephrology (6) Sick sinus syndrome: Code(s): I49.5 - Sick sinus syndrome Status: Acute Assessment and Plan: Sick sinus syndrome, patient has a defibrillator and pacemaker (7) Elevated troponin: Code(s): R77.8 - Other specified abnormalities of plasma proteins Status: Acute Assessment and Plan: Elevated troponin -no chest pain -presented with syncope -history of sick sinus syndrome, atrial fibrillation -obtain echocardiogram -cardiology consult 12/17/2022: Nuclear medicine stress test showed normal myocardial perfusion at rest and during stress, LV ejection fraction was 64% (8) Paroxysmal atrial fibrillation: Code(s): I48.0 - Paroxysmal atrial fibrillation Status: Acute Assessment and Plan: Patient with history of proximal AFib, was in sinus rhythm this morning and currently being paced -continue rivaroxaban -troponins were elevated (9) GERD (gastroesophageal reflux disease): Code(s): K21.9 - Gastro-esophageal reflux disease without esophagitis Status: Acute (10) CTE (chronic traumatic encephalopathy): Code(s): F07.81 - Postconcussional syndrome Status: Acute Assessment and Plan: Patient has some to the [employer] had some traumatic brain injury injury and 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
[2023-03-03 09:38] LABS: Creatinine Urine 60.8 mg/dL
[2023-03-03 09:39] LABS: Potassium Urine Random 12.3 meq/L; Sodium Urine Random 110 meq/L
--- NOTE | 2023-03-03 09:43 | ECG_ITS ---
Measurements Intervals Sullivan Rate: 93 P: 128 MN: 190 QRS: 66 QRSD: 153 T: 169 QT: 402 QTc: 500 Interpretive Statements ELECTRONIC VENTRICULAR PACEMAKER NO FURTHER INTERPRETATION POSSIBLE INTERPRETATION BASED ON A DEFAULT AGE OF 40 YEARS COMPARED TO ECG 03/02/2023 18:52:50 NO SIGNIFICANT CHANGES Electronically Signed On 03-03-2023 17:01:02 CDT by Madi Zavala M.D.
--- NOTE | 2023-03-03 09:47 | WPDINTPN ---
Progress Note: A&P Assessment and Plan (1) Syncope: Qualifiers: Syncope type: unspecified Qualified Code(s): R55 - Syncope and collapse Code(s): R55 - Syncope and collapse Status: Acute Assessment and Plan: Patient presented with syncope and was found down unresponsive in his yard for unknown amount of time. -patient was found to be hypoglycemic in the field given D10. -when he arrived in the ER he was hyperthermic and hypoxic, -he is currently awake, alert, oriented x3 -stated that he had not eaten much food all day yesterday but otherwise does not remember the sequence of events leading to his syncope and arrival to the ER. -appreciate cardiology evaluation, counting it is a cardiac related issue at this time -03/03/2023 echocardiogram shows EF of 55-60%, LV chamber is normal, no aortic valve stenosis, trace mitral valve regurg, trace tricuspid valve regurg, no pulmonary hypertension (2) Hyperthermia: Code(s): R50.9 - Fever, unspecified Status: Acute Assessment and Plan: Patient was hypothermic likely related to probably heat exhaustion -patient was cooled with ice packs to his neck and groin along with cooling blanket -body temperatures have been within normal limits since arrival to the ICU (3) Shock: Code(s): R57.9 - Shock, unspecified Status: Acute Assessment and Plan: Hypotension, received 5 L IV fluid bolus despite that his blood pressures remained low in the ER, central line was inserted in the right IJ and patient was started on Levophed -patient states his normal blood pressures are 90s/60s, -Levophed has been weaned off, pressures are much improved -creatinine has normalized, -very good urine output -patient started on Unasyn and vancomycin for possible aspiration/shock -03/02/2023: Preliminary Blood cultures are negative x2 (4) Rhabdomyolysis: Code(s): M62.82 - Rhabdomyolysis Status: Acute Assessment and Plan: Significantly elevated CK level with acute kidney injury -status post 5 L IV fluid bolus in the ER -currently on maintenance IV fluids at 175 mL/hour -CK levels trending down -very good urine output -patient was hypoxic overnight, will decrease IV fluids to 125/hour -encourage oral intake (5) Acute kidney injury: Code(s): N17.9 - Acute kidney failure, unspecified Status: Acute Assessment and Plan: Acute kidney injury likely related to shock, rhabdomyolysis, hypotension -patient received 5 L IV fluid bolus in the ER -continue maintenance IV fluids as above -UA positive for protein is a blood -03/03/2020 renal ultrasound showed normal kidneys, no hydronephrosis -urine lytes did not show prerenal picture, urine eosinophils were negative -appreciate Nephrology patient and recommendations -creatinine has normalized -encourage p.o. fluid intake (6) Sick sinus syndrome: Code(s): I49.5 - Sick sinus syndrome Status: Acute Assessment and Plan: Sick sinus syndrome, patient has a defibrillator and pacemaker -will have his pacemaker interrogated (7) Elevated troponin: Code(s): R77.8 - Other specified abnormalities of plasma proteins Status: Acute Assessment and Plan: Elevated troponin likely related to type 2 infarct, troponins trending down -no chest pain -presented with syncope -history of sick sinus syndrome, atrial fibrillation -echocardiogram as above 12/17/2022: Nuclear medicine stress test showed normal myocardial perfusion at rest and during stress, LV ejection fraction was 64% (8) Paroxysmal atrial fibrillation: Code(s): I48.0 - Paroxysmal atrial fibrillation Status: Acute Assessment and Plan: Patient with history of proximal AFib, was in sinus rhythm this morning and currently being paced -continue rivaroxaban -rate controlled (9) GERD (gastroesophageal reflux disease): Code(s): K21.9 - Gastro-esophageal reflux disease without esopha
[2023-03-03 09:59] LABS: Eosinophil Urine None Seen % (None Seen); Urine Eos QC 2nd Tech Confirmed
--- NOTE | 2023-03-03 10:20 | PM.CNNEP ---
Assessment and Plan Assessment and plan (1) Acute kidney injury: Code(s): N17.9 - Acute kidney failure, unspecified Status: Acute Assessment and Plan: normal baseline creatinine (by labs in November 2022) multifactorial etiology: hypotension/hemodynamic instability shock rhabdomyolysis entresto use LAB RN s/p aggressive IVF resuscitation (5L given in ER) follow-up on urine testing and renal ultrasound continue IVFs for now follow repeat labs and UOP (2) Rhabdomyolysis: Code(s): M62.82 - Rhabdomyolysis Status: Acute Assessment and Plan: significantly elevated CK level noted s/p IVF resuscitation in ER and on maintenance IVFs trend CPK (3) Syncope: Qualifiers: Syncope type: unspecified Qualified Code(s): R55 - Syncope and collapse Code(s): R55 - Syncope and collapse Status: Acute Assessment and Plan: as noted on presentation unclear how long patient was unresponsive/down noted to be hypoglycemic, hyperthermic, and hypoxic when discovered however, mentation preserved by arrival to ER follow mentation and hemodynamics (4) Hyperthermia: Code(s): R50.9 - Fever, unspecified Status: Acute Assessment and Plan: though to related to heat exhaustion cooled with ice packs and cooling blanket body temperatures have normalized follow temperature trend (5) Shock: Code(s): R57.9 - Shock, unspecified Status: Acute Assessment and Plan: noted inspite of aggressive IVF resuscitation central line placed on currently on levophed patient states his normal BP runs ~ 90/60s follow culture data (possible sepsis?) empiric antibiotic therapy follow trend of hemodynamics (6) Elevated troponin: Code(s): R77.8 - Other specified abnormalities of plasma proteins Status: Acute Assessment and Plan: noted on presentation however, no chest pain reported and presented with syncope cardiac history noted -- sick sinus syndrome and atrial fibrillation follow-up on Echo Cardiology consultation (7) CTE (chronic traumatic encephalopathy): Code(s): F07.81 - Postconcussional syndrome Status: Acute Assessment and Plan: as noted by history with regard to service continue home medications Discussed case with Dr. Bailey. I will continue to follow the patient with you while he remains hospitalized and make further recommendations during his hospital course. Thank you for allowing me to participate in the care of this patient. History of Present Illness Reason for Consult Consult date: 03/03/23 Reason for consult: acute renal failure Chief Complaint Chief complaint: heat stroke History of Present Illness Narrative: Most of the information I have obtained is from review of the electronic medical record as well as discussion with the physician/nurse is involved in his care as the patient is unable to ascertain the events that led to his presentation to the emergency room. The patient is a 62-year-old male with a past medical history as outlined below who presented to [facility] yesterday with complaints of altered mental status/syncope Apparently, the patient was found down in his yard for undisclosed amount of time. He was found by his spouse who immediately called EMS when she found him. Upon arrival of EMS, he was hypoglycemic but alert and oriented. He could not recall the events that led to his current situation. He was given D10 by IV which seem to help and he was subsequently transferred to [facility] for further assessment. Upon his arrival to the ER, he was noted be diaphoretic as well as hypoxic and febrile with a temperature of 103?. He was given IV Tylenol and ice packs were applied as well as a clean black to bring his temperature down. He reported no recent illnesses, nausea, diarrh
--- NOTE | 2023-03-03 10:20 | P.CONNP_ITS ---
Assessment and Plan Assessment and plan (1) Acute kidney injury: Code(s): N17.9 - Acute kidney failure, unspecified Status: Acute Assessment and Plan: * normal baseline creatinine (by labs in November 2022) * multifactorial etiology: * hypotension/hemodynamic instability * shock * rhabdomyolysis * entresto use [employer]ER * s/p aggressive IVF resuscitation (5L given in ER) * follow-up on urine testing and renal ultrasound * continue IVFs for now * follow repeat labs and UOP (2) Rhabdomyolysis: Code(s): M62.82 - Rhabdomyolysis Status: Acute Assessment and Plan: * significantly elevated CK level noted * s/p IVF resuscitation in ER and on maintenance IVFs * trend CPK (3) Syncope: Qualifiers: Syncope type: unspecified Qualified Code(s): R55 - Syncope and collapse Code(s): R55 - Syncope and collapse Status: Acute Assessment and Plan: * as noted on presentation * unclear how long patient was unresponsive/down * noted to be hypoglycemic, hyperthermic, and hypoxic when discovered * however, mentation preserved by arrival to ER * follow mentation and hemodynamics (4) Hyperthermia: Code(s): R50.9 - Fever, unspecified Status: Acute Assessment and Plan: * though to related to heat exhaustion * cooled with ice packs and cooling blanket * body temperatures have normalized * follow temperature trend (5) Shock: Code(s): R57.9 - Shock, unspecified Status: Acute Assessment and Plan: * noted inspite of aggressive IVF resuscitation * central line placed on currently on levophed * patient states his normal BP runs ~ 90/60s * follow culture data (possible sepsis?) * empiric antibiotic therapy * follow trend of hemodynamics (6) Elevated troponin: Code(s): R77.8 - Other specified abnormalities of plasma proteins Status: Acute Assessment and Plan: * noted on presentation * however, no chest pain reported and presented with syncope * cardiac history noted -- sick sinus syndrome and atrial fibrillation * follow-up on Echo * Cardiology consultation (7) CTE (chronic traumatic encephalopathy): Code(s): F07.81 - Postconcussional syndrome Status: Acute Assessment and Plan: * as noted by history with regard to service * continue home medications Discussed case with Dr. Bailey. I will continue to follow the patient with you while he remains hospitalized and make further recommendations during his hospital course. Thank you for allowing me to participate in the care of this patient. History of Present Illness Reason for Consult Consult date: 03/03/23 Reason for consult: acute renal failure Chief Complaint Chief complaint: heat stroke History of Present Illness Narrative: Most of the information I have obtained is from review of the electronic medical record as well as discussion with the physician/nurse is involved in his care as the patient is unable to ascertain the events that led to his presentation to the emergency room. The patient is a 62-year-old male with a past medical history as outlined below who presented to [facility] yesterday with complaints of altered mental status/syncope Apparently, the patient was found down in his yard for undisclosed amount of time. He was found by his spouse who immediately called EMS when she found him. Upon arrival of EMS, he was hypoglycemic but alert and oriented. He could n
[2023-03-03 10:37] LABS: Troponin I 0.054 ng/mL (0.000-0.034)
[2023-03-03] MEDS: TIZANIDINE HCL 4 MG TABLET PO (12:19)
--- NOTE | 2023-03-03 12:23 | PM.CNCAR ---
Assessment and Plan Assessment and plan (1) Shock: Code(s): R57.9 - Shock, unspecified Status: Acute Assessment and Plan: resolved off Levophed. Secondary to intravascular volume depletion complicated by rhabdomyolysis and TOMMIE. LV systolic function is normal. Evaluation for infectious contribution is being sought however most likely explanation is intravascular volume depletion. Continue aggressive IV fluid resuscitation for severe rhabdomyolysis. At this time I believe most likely explanation is heat stroke with hyperthermia, markedly elevated CK level, TOMMIE, hypotension/ shock, fatigue, weakness along with hypoglycemia with initial lactic acidosis resolved with IV fluids. Monitor renal function electrolytes closely. Follow CK levels. Patient remains critically ill. Continue ICU observation management on telemetry. Continue to hold cardiovascular medical therapy including statin. (2) Rhabdomyolysis: Code(s): M62.82 - Rhabdomyolysis Status: Acute Assessment and Plan: As above. severity no doubt exacerbated by atorvastatin and his underlying cardiovascular medical therapy. Appreciate Nephrology involvement. Continue aggressive IV fluid hydration with close monitoring of CK levels and renal function. (3) Loss of consciousness: Code(s): R40.20 - Unspecified coma Status: Acute Assessment and Plan: By available history patient lost consciousness as a function of progressively weakening, severe dehydration hypotension and hypoglycemia. (4) Elevated troponin: Code(s): R77.8 - Other specified abnormalities of plasma proteins Status: Acute Assessment and Plan: type 2 infarction secondary to severe rhabdomyolysis, hypotension/ shock, TOMMIE exacerbated by underlying medications. Troponin elevation not secondary to acute coronary syndrome and/or plaque rupture. no reported anginal symptoms, negative Lexiscan stress test November 2022. (5) Acute kidney injury: Code(s): N17.9 - Acute kidney failure, unspecified Status: Acute Assessment and Plan: Continue to monitor closely. Creatinine stable 1.4. (6) Hyperthermia: Code(s): R50.9 - Fever, unspecified Status: Acute Assessment and Plan: Temperature up to 103? F Supporting potential diagnosis of heat stroke. Cannot entirely exclude infection although no clear evidence at this time. Workup underway. (7) Paroxysmal atrial fibrillation: Code(s): I48.0 - Paroxysmal atrial fibrillation Status: Acute Assessment and Plan: Biventricular paced rhythm. Anticoagulation has been continued. Monitor for bleeding. Follow H&H. (8) ICD (implantable cardioverter-defibrillator) in place: Code(s): Z95.810 - Presence of automatic (implantable) cardiac defibrillator Status: Acute Assessment and Plan: Interrogation underway. Biventricular paced rhythm on telemetry no sustained or nonsustained VT or VF observed. I highly doubt his presentation is secondary to VT/VF or sudden cardiac event. (9) Nonischemic cardiomyopathy: Code(s): I42.8 - Other cardiomyopathies Status: Acute Assessment and Plan: Resolved, EF 55%. Will discuss resuming supporting cardiovascular medical therapy once patient has recovered and as appropriate /tolerated. 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
[2023-03-03 12:27] LABS: Glucose Point of Care 144 mg/dl (65-105)
[2023-03-03 13:17] LABS: Creatine Kinase 14771 U/L (55-170)
[2023-03-03] MEDS: CENTRAL LINE FLUSH 10 ML IV PUSH ×2 (13:43→21:58)
[2023-03-03] MEDS: SODIUM CHLORIDE 0.9% IV 500 ML IV CONT (13:45)
[2023-03-03] MEDS: NOREPINEPHRINE 8 MG/D5W 250 ML 8 MG/250 ML BAG 9.38 MG IV CONT (15:00)
[2023-03-03] MEDS: LACTATED RINGERS 1,000 ML 175 ML IV CONT (17:51)
[2023-03-03] MEDS: RIVAROXABAN 20 MG TABLET PO (18:00)
[2023-03-03 18:16] LABS: Glucose Point of Care 105 mg/dl (65-105)
[2023-03-03] MEDS: traZODone HCL 50 MG TABLET 200 MG PO (21:57)
[2023-03-03] MEDS: ATORVASTATIN 20 MG TABLET PO (21:57)
[2023-03-03] MEDS: DONEPEZIL HCL 10 MG TABLET PO (21:58)
[2023-03-03 22:05] LABS: Glucose Point of Care 79 mg/dl (65-105)
[2023-03-04] VITALS (9 sets, daily range): BP systolic 95–157; BP diastolic 64–101; PULSE 79–106; RESP 12–94; TEMP 37.3–37.6; O2SAT 17–100
[2023-03-04] MEDS: AMPICILLIN SULB 3 GM/NS 100 ML 3 GM/100 ML VIAL IVPB ×4 (00:30→18:21)
[2023-03-04] MEDS: LACTATED RINGERS 1,000 ML 175 ML IV CONT ×5 (00:30→20:16)
[2023-03-04 04:54] LABS: Basophils Percent Auto 0.2 % (0.2-1.2); Eosinophils Percent Auto 0.5 % (0-4.4); Hematocrit 40.9 % (42.0-52.0); Hemoglobin 14.1 g/dL (14.0-18.0); Immature Granulocyte Absolute 0.02 K/mm3 (0.00-0.031); Immature Granulocyte Percent A 0.2 % (0-0.5); Immature Platelet Fraction Pct 2.6 % (0.9-11.2); Lymphocytes Absolute Auto 1.97 K/mm3 (0.9-3.2); Lymphocytes Percent Auto 23.3 % (18.3-44.2); Mean Corpuscular HGB Conc 34.5 g/dl (32-36); Mean Corpuscular Hemoglobin 32.2 pg (26-34); Mean Corpuscular Volume 93.4 fl (80-100); Mean Platelet Volume 9.4 fl (7.4-10.4); Monocytes Absolute Auto 0.7 K/mm3 (0.1-0.6); Monocytes Percent Auto 8.6 % (2.6-8.5); Neutrophils Absolute Auto 5.7 K/mm3 (1.3-6.7); Neutrophils Percent Auto 67.2 % (45.5-73.1); Platelet Count Result 152 k/mm3 (150-375); Red Blood Count 4.38 M/mm3 (4.6-6.20); Red Cell Distribution Width 12.1 % (11.5-14.5); White Blood Count 8.5 K/mm3 (4.5-10.0)
[2023-03-04 05:02] LABS: Lactic Acid Reflex 0.9 mmol/L (0.7-2.0)
[2023-03-04 05:06] LABS: Alanine Aminotransferase 122 U/L (6-50); Albumin Level 3.2 g/dL (3.5-5.1); Alkaline Phosphatase 43 U/L (38-126); Anion Gap 4 mmol/L (8-16); Aspartate Amino Transferase 224 U/L (17-59); Bilirubin,Total 0.9 mg/dL (0.2-1.3); Blood Urea Nitrogen 6 mg/dL (9-20); Calcium 7.7 mg/dL (8.4-10.2); Carbon Dioxide 26 mmol/L (22-30); Chloride 112 mmol/L (98-107); Estimated CRCL calculation 91 ml/min; Estimated Glomerular Filt Rate > 60; Glucose 94 mg/dL (65-110); Magnesium 1.8 mg/dL (1.6-2.3); Phosphorus 2.8 mg/dL (2.5-4.5); Sodium 142 mmol/L (137-145)
[2023-03-04 05:55] LABS: Creatine Kinase 11125 U/L (55-170)
[2023-03-04] MEDS: CENTRAL LINE FLUSH 10 ML IV PUSH ×4 (06:04→22:30)
[2023-03-04] MEDS: MEMANTINE 10 MG TABLET PO ×2 (08:41→16:52)
[2023-03-04] MEDS: GABAPENTIN 400 MG CAPSULE 800 MG PO ×3 (08:41→16:52)
[2023-03-04 08:46] LABS: Glucose Point of Care 96 mg/dl (65-105)
--- NOTE | 2023-03-04 10:15 | P.PNNP_ITS ---
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 * s/p aggressive IVF resuscitation (5L given in ER) * follow-up on urine testing and renal ultrasound * continue IVFs but okay to decrease rate * follow repeat labs and UOP (2) Rhabdomyolysis: Code(s): M62.82 - Rhabdomyolysis Status: Acute Assessment and Plan: * significantly elevated CK level noted * CPK up as high as 15,000 * s/p IVF resuscitation in ER and on maintenance IVFs * trend CPK (3) Syncope: Qualifiers: Syncope type: unspecified Qualified Code(s): R55 - Syncope and collapse Code(s): R55 - Syncope and collapse Status: Acute Assessment and Plan: * as noted on presentation * unclear how long patient was unresponsive/down * noted to be hypoglycemic, hyperthermic, and hypoxic when discovered * however, mentation preserved by arrival to ER * follow mentation and hemodynamics * suspected etiology due to volume depletion given evidence to date (4) Hyperthermia: Code(s): R50.9 - Fever, unspecified Status: Acute Assessment and Plan: * though to related to heat exhaustion * cooled with ice packs and cooling blanket on presentation * body temperatures have normalized * follow temperature trend (5) Shock: Code(s): R57.9 - Shock, unspecified Status: Acute Assessment and Plan: * resolved * noted inspite of aggressive IVF resuscitation * central line placed was on levophed - this is off currently * patient states his normal BP runs ~ 90/60s * follow culture data * empiric antibiotic therapy * follow trend of hemodynamics (6) Elevated troponin: Code(s): R77.8 - Other specified abnormalities of plasma proteins Status: Acute Assessment and Plan: * noted on presentation * however, no chest pain reported and presented with syncope * cardiac history noted -- sick sinus syndrome and atrial fibrillation * Echo results reviewed * Cardiology recommendations noted (7) CTE (chronic traumatic encephalopathy): Code(s): F07.81 - Postconcussional syndrome Status: Acute Assessment and Plan: * as noted by history with regard to service * continue home medications Will continue to follow. Subjective Date/time seen: 03/04/23 10:15 Appears to be doing significantly better at the time of my visit; weaned off vasopressor therapy but remains on IVFs due to rhabdomyolysis; with good urine output; no apparent distress noted; no other issues/events overnight or earlier this AM. Exam Narrative: General: WD/WN male in NAD Heart: normal S1 and S2; no rub Lungs: clear to auscultation Abdomen: soft, nontender, nondistended, positive bowel sounds Extremities: no cyanosis or clubbing; no edema Skin: warm and dry Objective Data Vital Signs Vital Signs: Vital Signs Temp Pulse Resp BP Pulse Ox O2 Del Method O2 Flow Rate 03/04/23 10:00 97 03/04/23 10:00 97 16 138/83 96 03/04/23 08:00 95 Room Air 03/04/23
--- NOTE | 2023-03-04 10:15 | PM.PNNEP ---
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 [employer] s/p aggressive IVF resuscitation (5L given in ER) follow-up on urine testing and renal ultrasound continue IVFs but okay to decrease rate follow repeat labs and UOP (2) Rhabdomyolysis: Code(s): M62.82 - Rhabdomyolysis Status: Acute Assessment and Plan: significantly elevated CK level noted CPK up as high as 15,000 s/p IVF resuscitation in ER and on maintenance IVFs trend CPK (3) Syncope: Qualifiers: Syncope type: unspecified Qualified Code(s): R55 - Syncope and collapse Code(s): R55 - Syncope and collapse Status: Acute Assessment and Plan: as noted on presentation unclear how long patient was unresponsive/down noted to be hypoglycemic, hyperthermic, and hypoxic when discovered however, mentation preserved by arrival to ER follow mentation and hemodynamics suspected etiology due to volume depletion given evidence to date (4) Hyperthermia: Code(s): R50.9 - Fever, unspecified Status: Acute Assessment and Plan: though to related to heat exhaustion cooled with ice packs and cooling blanket on presentation body temperatures have normalized follow temperature trend (5) Shock: Code(s): R57.9 - Shock, unspecified Status: Acute Assessment and Plan: resolved noted inspite of aggressive IVF resuscitation central line placed was on levophed - this is off currently patient states his normal BP runs ~ 90/60s follow culture data empiric antibiotic therapy follow trend of hemodynamics (6) Elevated troponin: Code(s): R77.8 - Other specified abnormalities of plasma proteins Status: Acute Assessment and Plan: noted on presentation however, no chest pain reported and presented with syncope cardiac history noted -- sick sinus syndrome and atrial fibrillation Echo results reviewed Cardiology recommendations noted (7) CTE (chronic traumatic encephalopathy): Code(s): F07.81 - Postconcussional syndrome Status: Acute Assessment and Plan: as noted by history with regard to service continue home medications Will continue to follow. Subjective Date/time seen: 03/04/23 10:15 Appears to be doing significantly better at the time of my visit; weaned off vasopressor therapy but remains on IVFs due to rhabdomyolysis; with good urine output; no apparent distress noted; no other issues/events overnight or earlier this AM. Exam Narrative: General: WD/WN male in NAD Heart: normal S1 and S2; no rub Lungs: clear to auscultation Abdomen: soft, nontender, nondistended, positive bowel sounds Extremities: no cyanosis or clubbing; no edema Skin: warm and dry Objective Data Vital Signs Vital Signs: Vital Signs Temp Pulse Resp BP Pulse Ox O2 Del Method O2 Flow Rate 03/04/23 10:00 97 03/04/23 10:00 97 16 138/83 96 03/04/23 08:00 95 Room Air 03/04/23 08:00 101 H 03/04/23 08:00 99.3 F 93 12 132/91 H 97 03/04/23 06:00 99.7 F H 95 13 123/88 97 03/04/23 06:00 95 03/04/23 04:00 99 94 Nasal Cannula 4 03/04/23 04:00 99.7 F H 106 H 16 117/70 93 03/04/23 04:00 106 H 03/04/23 02:00 99.5 F 91 16 105/66 98 03/04/23 02:00 91 03/04/23 00:00 89 94 CPAP 03/04/23 00:00 99.5 F 89 17 95/64 L 94 03/04/23 00:00 89 03/03/23 22:00 89 96 Nasal Cannula 2 03/03/23 22:00 90 18 120/79 96 03/03/23 22:00 90 03/03/23 20:00 87 17 97 Nasal Cannula 2 03/03/23 20:00 100 F H 87 17
[2023-03-04] MEDS: POTASSIUM CHLORIDE 20 MEQ PACKET (FOR LIQUID) 40 MEQ PO ×2 (10:45→16:52)
[2023-03-04] MEDS: PANTOPRAZOLE 40 MG TABLET PO (10:45)
[2023-03-04 12:02] LABS: Glucose Point of Care 131 mg/dl (65-105)
--- NOTE | 2023-03-04 12:22 | WPDINTPN ---
Progress Note: A&P Assessment and Plan (1) Syncope: Qualifiers: Syncope type: unspecified Qualified Code(s): R55 - Syncope and collapse Code(s): R55 - Syncope and collapse Status: Acute Assessment and Plan: Patient presented with syncope and was found down unresponsive in his yard for unknown amount of time. -patient was found to be hypoglycemic in the field given D10. -when he arrived in the ER he was hyperthermic and hypoxic, -he is currently awake, alert, oriented x3 -stated that he had not eaten much food all day yesterday but otherwise does not remember the sequence of events leading to his syncope and arrival to the ER. -appreciate cardiology evaluation, counting it is a cardiac related issue at this time -03/03/2023 echocardiogram shows EF of 55-60%, LV chamber is normal, no aortic valve stenosis, trace mitral valve regurg, trace tricuspid valve regurg, no pulmonary hypertension (2) Hyperthermia: Code(s): R50.9 - Fever, unspecified Status: Acute Assessment and Plan: Patient was hypothermic likely related to probably heat exhaustion -patient was cooled with ice packs to his neck and groin along with cooling blanket -body temperatures have been within normal limits since arrival to the ICU (3) Shock: Code(s): R57.9 - Shock, unspecified Status: Acute Assessment and Plan: Hypotension, received 5 L IV fluid bolus despite that his blood pressures remained low in the ER, central line was inserted in the right IJ and patient was started on Levophed -patient states his normal blood pressures are 90s/60s, -Levophed has been weaned off, pressures are much improved -creatinine has normalized, -very good urine output -continue Unasyn (03/03) for possible aspiration -03/02/2023: Preliminary Blood cultures are negative x2, vancomycin discontinued (4) Rhabdomyolysis: Code(s): M62.82 - Rhabdomyolysis Status: Acute Assessment and Plan: Significantly elevated CK level with acute kidney injury -status post 5 L IV fluid bolus in the ER -currently on maintenance IV fluids at 175 mL/hour -CK levels trending down -very good urine output -patient was hypoxic overnight, will decrease IV fluids to 125/hour -encourage oral intake (5) Acute kidney injury: Code(s): N17.9 - Acute kidney failure, unspecified Status: Acute Assessment and Plan: Acute kidney injury likely related to shock, rhabdomyolysis, hypotension -patient received 5 L IV fluid bolus in the ER -continue maintenance IV fluids as above -UA positive for protein is a blood -03/03/2020 renal ultrasound showed normal kidneys, no hydronephrosis -urine lytes did not show prerenal picture, urine eosinophils were negative -appreciate Nephrology patient and recommendations -creatinine has normalized -encourage p.o. fluid intake (6) Sick sinus syndrome: Code(s): I49.5 - Sick sinus syndrome Status: Acute Assessment and Plan: Sick sinus syndrome, patient has a defibrillator and pacemaker -will have his pacemaker interrogated (7) Elevated troponin: Code(s): R77.8 - Other specified abnormalities of plasma proteins Status: Acute Assessment and Plan: Elevated troponin likely related to type 2 infarct, troponins trending down -no chest pain -presented with syncope -history of sick sinus syndrome, atrial fibrillation -echocardiogram as above 12/17/2022: Nuclear medicine stress test showed normal myocardial perfusion at rest and during stress, LV ejection fraction was 64% (8) Paroxysmal atrial fibrillation: Code(s): I48.0 - Paroxysmal atrial fibrillation Status: Acute Assessment and Plan: Patient with history of proximal AFib, was in sinus rhythm this morning and currently being paced -continue rivaroxaban -rate controlled (9) GERD (gastroesophageal reflux disease): Code(s): K21.9 - Gastro-esophageal reflux disease without esop
[2023-03-04] MEDS: traMADol HCL (*CRX) 50 MG TABLET PO (12:26)
[2023-03-04] MEDS: TIZANIDINE HCL 4 MG TABLET PO ×2 (12:27→22:30)
[2023-03-04] MEDS: RIVAROXABAN 20 MG TABLET PO (16:52)
[2023-03-04 17:14] LABS: Hepatitis B Surface Antigen Negative (Negative)
[2023-03-04 17:19] LABS: HAV RESULT Negative (Negative); Hepatitis B Core IgM Result Negative (Negative)
[2023-03-04 17:29] LABS: Glucose Point of Care 101 mg/dl (65-105)
[2023-03-04 17:31] LABS: Hepatitis C Virus Antibody Negative (Negative)
[2023-03-04] MEDS: DONEPEZIL HCL 10 MG TABLET PO (20:14)
[2023-03-04] MEDS: traZODone HCL 50 MG TABLET 200 MG PO (22:29)
[2023-03-04 22:38] LABS: Glucose Point of Care 91 mg/dl (65-105)
[2023-03-05] VITALS (8 sets, daily range): BP systolic 107–154; BP diastolic 69–96; PULSE 73–97; RESP 14–24; TEMP 36–37.3; O2SAT 96–100
[2023-03-05] MEDS: AMPICILLIN SULB 3 GM/NS 100 ML 3 GM/100 ML VIAL IVPB ×5 (00:47→23:29)
[2023-03-05] MEDS: LACTATED RINGERS 1,000 ML 175 ML IV CONT ×2 (03:33→11:49)
[2023-03-05] MEDS: CENTRAL LINE FLUSH 10 ML IV PUSH ×2 (05:35→12:26)
[2023-03-05 05:53] LABS: Basophils Percent Auto 0.3 % (0.2-1.2); Eosinophils Absolute Auto 0.1 K/mm3 (0-0.3); Eosinophils Percent Auto 0.9 % (0-4.4); Hematocrit 38.5 % (42.0-52.0); Hemoglobin 13.4 g/dL (14.0-18.0); Immature Granulocyte Absolute 0.03 K/mm3 (0.00-0.031); Immature Granulocyte Percent A 0.4 % (0-0.5); Immature Platelet Fraction Pct 3.4 % (0.9-11.2); Lymphocytes Absolute Auto 1.54 K/mm3 (0.9-3.2); Lymphocytes Percent Auto 19.5 % (18.3-44.2); Mean Corpuscular HGB Conc 34.8 g/dl (32-36); Mean Corpuscular Hemoglobin 32.7 pg (26-34); Mean Corpuscular Volume 93.9 fl (80-100); Mean Platelet Volume 9.2 fl (7.4-10.4); Monocytes Absolute Auto 0.5 K/mm3 (0.1-0.6); Monocytes Percent Auto 6.5 % (2.6-8.5); Neutrophils Absolute Auto 5.7 K/mm3 (1.3-6.7); Neutrophils Percent Auto 72.4 % (45.5-73.1); Platelet Count Result 145 k/mm3 (150-375); Red Cell Distribution Width 11.9 % (11.5-14.5); White Blood Count 7.9 K/mm3 (4.5-10.0)
[2023-03-05 07:59] LABS: Alanine Aminotransferase 105 U/L (6-50); Albumin Level 3.2 g/dL (3.5-5.1); Alkaline Phosphatase 44 U/L (38-126); Anion Gap 2 mmol/L (8-16); Aspartate Amino Transferase 150 U/L (17-59); Bilirubin,Total 1.1 mg/dL (0.2-1.3); Blood Urea Nitrogen 5 mg/dL (9-20); Calcium 7.6 mg/dL (8.4-10.2); Carbon Dioxide 30 mmol/L (22-30); Chloride 106 mmol/L (98-107); Estimated CRCL calculation 101 ml/min; Estimated Glomerular Filt Rate > 60; Glucose 92 mg/dL (65-110); Magnesium 1.6 mg/dL (1.6-2.3); Phosphorus 3.3 mg/dL (2.5-4.5); Potassium 3.3 mmol/L (3.4-5.0); Sodium 138 mmol/L (137-145)
[2023-03-05 08:20] LABS: Creatine Kinase 6055 U/L (55-170)
[2023-03-05] MEDS: MEMANTINE 10 MG TABLET PO ×2 (08:38→17:22)
[2023-03-05] MEDS: PANTOPRAZOLE 40 MG TABLET PO (08:38)
[2023-03-05] MEDS: GABAPENTIN 400 MG CAPSULE 800 MG PO ×3 (08:38→17:22)
[2023-03-05] MEDS: TIZANIDINE HCL 4 MG TABLET PO ×2 (08:39→20:57)
[2023-03-05] MEDS: traMADol HCL (*CRX) 50 MG TABLET PO ×3 (08:40→20:56)
[2023-03-05 08:50] LABS: Glucose Point of Care 94 mg/dl (65-105)
--- NOTE | 2023-03-05 11:54 | PM.IMPN ---
Progress Note: A&P Assessment and Plan (1) Syncope: Qualifiers: Syncope type: unspecified Qualified Code(s): R55 - Syncope and collapse Code(s): R55 - Syncope and collapse Status: Acute Assessment and Plan: Patient presented with syncope and was found down unresponsive in his yard for unknown amount of time. -patient was found to be hypoglycemic in the field given D10. -when he arrived in the ER he was hyperthermic and hypoxic -he is currently awake, alert, oriented x3 -stated that he had not eaten much food all day but otherwise does not remember the sequence of events leading to his syncope and arrival to the ER. -appreciate cardiology evaluation, counting it is a cardiac related issue at this time -03/03/2023 echocardiogram shows EF of 55-60%, LV chamber is normal, no aortic valve stenosis, trace mitral valve regurg, trace tricuspid valve regurg, no pulmonary hypertension -contineu to monitor (2) Hyperthermia: Code(s): R50.9 - Fever, unspecified Status: Acute Assessment and Plan: Patient was hyperthermic likely related to probably heat exhaustion -patient was cooled with ice packs to his neck and groin along with cooling blanket -body temperatures have been within normal limits since arrival to the ICU -resolved (3) Shock: Code(s): R57.9 - Shock, unspecified Status: Acute Assessment and Plan: Patient was hypotension receiving 5 L IV fluid bolus. Despite that his blood pressures remained low in the ER, central line was inserted in the right IJ and patient was started on Levophed -patient states his normal blood pressures are 90s/60s, -Levophed was weaned off, pressures are much improved -creatinine has normalized, -very good urine output -continue Unasyn (03/03) for possible aspiration -03/02/2023: Preliminary Blood cultures are negative x2, vancomycin discontinued -Levophed off since 03/03; okay to remove central line (4) Rhabdomyolysis: Code(s): M62.82 - Rhabdomyolysis Status: Acute Assessment and Plan: Significantly elevated CK level to 14K with acute kidney injury -status post 5 L IV fluid bolus in the ER -currently on maintenance IV fluids at 175 mL/hour -CK levels trending down -very good urine output -patient was hypoxic overnight so IV fluids decreased to 125/hour -encourage oral intake -Lasix IV x 1 (5) Acute kidney injury: Code(s): N17.9 - Acute kidney failure, unspecified Status: Acute Assessment and Plan: Acute kidney injury likely related to shock, rhabdomyolysis, hypotension -patient received 5 L IV fluid bolus in the ER -continue maintenance IV fluids as above -UA positive for protein is a blood -03/03/2020 renal ultrasound showed normal kidneys, no hydronephrosis -urine lytes did not show prerenal picture, urine eosinophils were negative -appreciate Nephrology patient and recommendations -creatinine has normalized -encourage p.o. fluid intake (6) Sick sinus syndrome: Code(s): I49.5 - Sick sinus syndrome Status: Acute Assessment and Plan: Sick sinus syndrome, patient has a defibrillator and pacemaker -pacemaker interrogation showing intermittent episodes of AFib (7) Elevated troponin: Code(s): R77.8 - Other specified abnormalities of plasma proteins Status: Acute Assessment and Plan: Elevated troponin likely related to type 2 infarct, troponins trending down -no chest pain -presented with syncope -history of sick sinus syndrome, atrial fibrillation -echocardiogram as above -12/17/2022: Nuclear medicine stress test showed normal myocardial perfusion at rest and during stress, LV ejection fraction was 64% (8) Paroxysmal atrial fibrillation: Code(s): I48.0 - Paroxysmal atrial fibrillation Status: Acute Assessment and Plan: Patient with history of proximal AFib, was in sinus rhythm this morning and currently being paced -
[2023-03-05] MEDS: FUROSEMIDE INJ 40 MG/4 ML VIAL IV PUSH (12:24)
[2023-03-05] MEDS: POTASSIUM CHLORIDE 20 MEQ TABLET 40 MEQ PO (12:24)
[2023-03-05] MEDS: MAGNESIUM SULF 2 GM/WATER 50ML 2 GM/50 ML BAG IVPB (12:24)
[2023-03-05 12:41] LABS: Glucose Point of Care 104 mg/dl (65-105)
--- NOTE | 2023-03-05 12:47 | P.PNNP_ITS ---
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 (5L given in ER) * follow-up on urine testing and renal ultrasound * continue IVFs but okay to decrease rate * follow repeat labs and UOP (2) Rhabdomyolysis: Code(s): M62.82 - Rhabdomyolysis Status: Acute Assessment and Plan: * improving * significantly elevated CK level noted * CPK up as high as 15,000 * s/p IVF resuscitation in ER and on maintenance IVFs * trend CPK (3) Syncope: Qualifiers: Syncope type: unspecified Qualified Code(s): R55 - Syncope and collapse Code(s): R55 - Syncope and collapse Status: Acute Assessment and Plan: * as noted on presentation * unclear how long patient was unresponsive/down * noted to be hypoglycemic, hyperthermic, and hypoxic when discovered * however, mentation preserved by arrival to ER * follow mentation and hemodynamics * suspected etiology due to volume depletion given evidence to date (4) Hyperthermia: Code(s): R50.9 - Fever, unspecified Status: Acute Assessment and Plan: * though to related to heat exhaustion * cooled with ice packs and cooling blanket on presentation * body temperatures have normalized * follow temperature trend (5) Shock: Code(s): R57.9 - Shock, unspecified Status: Acute Assessment and Plan: * resolved * noted inspite of aggressive IVF resuscitation * central line placed was on levophed - this is off currently * patient states his normal BP runs ~ 90/60s * follow culture data * empiric antibiotic therapy * follow trend of hemodynamics (6) Elevated troponin: Code(s): R77.8 - Other specified abnormalities of plasma proteins Status: Acute Assessment and Plan: * noted on presentation * however, no chest pain reported and presented with syncope * cardiac history noted -- sick sinus syndrome and atrial fibrillation * Echo results reviewed * Cardiology recommendations noted (7) CTE (chronic traumatic encephalopathy): Code(s): F07.81 - Postconcussional syndrome Status: Acute Assessment and Plan: * as noted by history with regard to service * continue home medications Will continue to follow. Subjective Date/time seen: 03/05/23 12:47 Moved to IMU status yesterday; continues to do reasonably well; stable hemodynamics off vasopressor therapy; good urine output with stability in renal function with downtrending CPK; no apparent distress noted; no issues/events overnight or earlier this AM. Exam Narrative: General: WD/WN male in NAD Heart: normal S1 and S2; no rub Lungs: clear to auscultation Abdomen: soft, nontender, nondistended, positive bowel sounds Extremities: no cyanosis or clubbing; trace edema Skin: warm and intact Objective Data Vital Signs Vital Signs: Vital Signs Temp Pulse Resp BP Pulse Ox O2 Del Method 03/05/23 12:00 99.2 F 88 14 143/92 H 96 03/05/23 08:00 99.2 F 73 14 154/92 H 97
--- NOTE | 2023-03-05 12:47 | PM.PNNEP ---
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 entresto use REGISTERED N[employer]SE [employer]GICAL SERVICES s/p aggressive IVF resuscitation (5L given in ER) follow-up on urine testing and renal ultrasound continue IVFs but okay to decrease rate follow repeat labs and UOP (2) Rhabdomyolysis: Code(s): M62.82 - Rhabdomyolysis Status: Acute Assessment and Plan: improving significantly elevated CK level noted CPK up as high as 15,000 s/p IVF resuscitation in ER and on maintenance IVFs trend CPK (3) Syncope: Qualifiers: Syncope type: unspecified Qualified Code(s): R55 - Syncope and collapse Code(s): R55 - Syncope and collapse Status: Acute Assessment and Plan: as noted on presentation unclear how long patient was unresponsive/down noted to be hypoglycemic, hyperthermic, and hypoxic when discovered however, mentation preserved by arrival to ER follow mentation and hemodynamics suspected etiology due to volume depletion given evidence to date (4) Hyperthermia: Code(s): R50.9 - Fever, unspecified Status: Acute Assessment and Plan: though to related to heat exhaustion cooled with ice packs and cooling blanket on presentation body temperatures have normalized follow temperature trend (5) Shock: Code(s): R57.9 - Shock, unspecified Status: Acute Assessment and Plan: resolved noted inspite of aggressive IVF resuscitation central line placed was on levophed - this is off currently patient states his normal BP runs ~ 90/60s follow culture data empiric antibiotic therapy follow trend of hemodynamics (6) Elevated troponin: Code(s): R77.8 - Other specified abnormalities of plasma proteins Status: Acute Assessment and Plan: noted on presentation however, no chest pain reported and presented with syncope cardiac history noted -- sick sinus syndrome and atrial fibrillation Echo results reviewed Cardiology recommendations noted (7) CTE (chronic traumatic encephalopathy): Code(s): F07.81 - Postconcussional syndrome Status: Acute Assessment and Plan: as noted by history with regard to service continue home medications Will continue to follow. Subjective Date/time seen: 03/05/23 12:47 Moved to IMU status yesterday; continues to do reasonably well; stable hemodynamics off vasopressor therapy; good urine output with stability in renal function with downtrending CPK; no apparent distress noted; no issues/events overnight or earlier this AM. Exam Narrative: General: WD/WN male in NAD Heart: normal S1 and S2; no rub Lungs: clear to auscultation Abdomen: soft, nontender, nondistended, positive bowel sounds Extremities: no cyanosis or clubbing; trace edema Skin: warm and intact Objective Data Vital Signs Vital Signs: Vital Signs Temp Pulse Resp BP Pulse Ox O2 Del Method 03/05/23 12:00 99.2 F 88 14 143/92 H 96 03/05/23 08:00 99.2 F 73 14 154/92 H 97 03/05/23 08:00 97 Room Air 03/05/23 08:00 73 03/05/23 04:00 99.2 F 86 16 134/85 97 03/05/23 04:00 92 03/05/23 00:00 98.5 F 88 24 H 107/69 97 03/05/23 00:00 91 03/04/23 20:00 99.1 F 79 15 132/101 H 100 03/04/23 20:00 81 03/04/23 16:00 99.3 F 92 12 155/94 H 96 03/04/23 16:00 91 Intake/Output Intake/Output: Intake & Output 03/02/23 03/03/23 03/04/23 03/05/23 23:59 23:59 23:59 23:59 Intake Total 5100 4344 6800 2440 Output Total 5400 3500 1625 Balance 5100 -1056 3300 815 Meds/Results Medications: Active Medications Generic Name Dose Route St
--- NOTE | 2023-03-05 16:45 | PC.NURSE ---
This patient, Felix Galindo, was received from [ICU-8] on 03/05/23 at 1500. Patient/family oriented to unit policies and routines
[2023-03-05 16:48] LABS: Glucose Point of Care 93 mg/dl (65-105)
[2023-03-05] MEDS: RIVAROXABAN 20 MG TABLET PO (17:22)
[2023-03-05] MEDS: POTASSIUM CHLORIDE 20 MEQ TABLET.ER 40 MEQ PO (17:22)
[2023-03-05] MEDS: DONEPEZIL HCL 10 MG TABLET PO (20:58)
[2023-03-05] MEDS: carvediloL 12.5 MG TABLET PO (20:58)
[2023-03-05] MEDS: traZODone HCL 50 MG TABLET 200 MG PO (20:59)
[2023-03-05] MEDS: LACTATED RINGERS 1,000 ML 80 ML IV CONT (21:38)
[2023-03-05 22:20] LABS: Glucose Point of Care 113 mg/dl (65-105)
[2023-03-06] VITALS (10 sets, daily range): BP systolic 116–138; BP diastolic 62–87; PULSE 79–100; RESP 16–18; TEMP 36.6–36.9; O2SAT 95–99
[2023-03-06 04:12] LABS: Appearance Urine Clear (Clear); Bacteria Urine None Seen /hpf; Bilirubin Urine Negative (Negative); Color Urine Yellow (Yellow); Glucose Urine UA Negative (Negative); Ketones Urine Negative (Negative); Leukocyte Esterase Ur Negative LEU/UL (NEGATIVE); Nitrate Urine Negative (Negative); Non Pathogenic Casts 0-2; Protein Urine Negative (Negative); Squamous Epithelial Cell Urine None seen /hpf (Few); Urobilinogen Urine 0.2 mg/dL (<2.0); WBC Urine 0-5 /hpf (0-3); pH Urine 6.5 (5.0-9.0)
[2023-03-06 04:16] LABS: Add Urine Microscopic? NO
[2023-03-06] MEDS: AMPICILLIN SULB 3 GM/NS 100 ML 3 GM/100 ML VIAL IVPB ×2 (05:07→12:31)
[2023-03-06] MEDS: traMADol HCL (*CRX) 50 MG TABLET PO ×3 (05:11→20:00)
[2023-03-06 06:42] LABS: Basophils Percent Auto 0.4 % (0.2-1.2); Eosinophils Absolute Auto 0.1 K/mm3 (0-0.3); Eosinophils Percent Auto 1.1 % (0-4.4); Hematocrit 40.1 % (42.0-52.0); Hemoglobin 13.8 g/dL (14.0-18.0); Immature Granulocyte Absolute 0.04 K/mm3 (0.00-0.031); Immature Granulocyte Percent A 0.5 % (0-0.5); Lymphocytes Percent Auto 20.1 % (18.3-44.2); Mean Corpuscular HGB Conc 34.4 g/dl (32-36); Mean Corpuscular Hemoglobin 31.6 pg (26-34); Mean Corpuscular Volume 91.8 fl (80-100); Mean Platelet Volume 9.5 fl (7.4-10.4); Monocytes Absolute Auto 0.6 K/mm3 (0.1-0.6); Monocytes Percent Auto 7.2 % (2.6-8.5); Neutrophils Absolute Auto 5.6 K/mm3 (1.3-6.7); Neutrophils Percent Auto 70.7 % (45.5-73.1); Platelet Count Result 183 k/mm3 (150-375); Red Blood Count 4.37 M/mm3 (4.6-6.20); Red Cell Distribution Width 11.8 % (11.5-14.5)
[2023-03-06 07:24] LABS: Alanine Aminotransferase 93 U/L (6-50); Albumin Level 3.8 g/dL (3.5-5.1); Alkaline Phosphatase 46 U/L (38-126); Anion Gap 4 mmol/L (8-16); Aspartate Amino Transferase 159 U/L (17-59); Bilirubin,Total 1.2 mg/dL (0.2-1.3); Blood Urea Nitrogen 7 mg/dL (9-20); Calcium 8.6 mg/dL (8.4-10.2); Carbon Dioxide 32 mmol/L (22-30); Chloride 103 mmol/L (98-107); Estimated CRCL calculation 100 ml/min; Estimated Glomerular Filt Rate > 60; Glucose 94 mg/dL (65-110); Magnesium 1.9 mg/dL (1.6-2.3); Phosphorus 3.3 mg/dL (2.5-4.5); Sodium 139 mmol/L (137-145)
[2023-03-06 07:39] LABS: Creatine Kinase 6384 U/L (55-170)
[2023-03-06 08:09] LABS: Glucose Point of Care 100 mg/dl (65-105)
[2023-03-06] MEDS: carvediloL 12.5 MG TABLET PO ×2 (08:34→20:01)
[2023-03-06] MEDS: PANTOPRAZOLE 40 MG TABLET PO (08:35)
[2023-03-06] MEDS: GABAPENTIN 400 MG CAPSULE 800 MG PO ×3 (08:35→17:08)
[2023-03-06] MEDS: MEMANTINE 10 MG TABLET PO ×2 (08:35→17:09)
[2023-03-06] MEDS: TIZANIDINE HCL 4 MG TABLET PO ×2 (08:36→21:59)
--- NOTE | 2023-03-06 09:24 | PCOTNOTE ---
Spoke with ordering hospitalist Dr. Izaguirre who is agreeable to canceling OT evaluation orders due to patient being independent in room for all mobility and ADLs which is patients baseline. Will Cancel orders.
--- NOTE | 2023-03-06 09:41 | PCPTNOTE ---
PER OT: Spoke with ordering hospitalist Dr. Izaguirre who is agreeable to canceling therapy orders due to patient being independent in room for all mobility and ADLs which is patients baseline. Will Cancel orders.
--- NOTE | 2023-03-06 10:42 | PM.IMPN ---
Progress Note: A&P Assessment and Plan (1) Rhabdomyolysis: Code(s): M62.82 - Rhabdomyolysis Status: Acute Assessment and Plan: Significantly elevated CK level to 14K with acute kidney injury -status post 5 L IV fluid bolus in the ER -currently on maintenance IV fluids -CK levels were trending down but not changed today -very good urine output -encourage oral free water intake -UA still showing trace blood and 3-5 RBC -continue IV fluids (2) Syncope: Qualifiers: Syncope type: unspecified Qualified Code(s): R55 - Syncope and collapse Code(s): R55 - Syncope and collapse Status: Acute Assessment and Plan: Patient presented with syncope and was found down unresponsive in his yard for unknown amount of time. -patient was found to be hypoglycemic in the field given D10. -when he arrived in the ER he was hyperthermic and hypoxic -he is currently awake, alert, oriented x3 -stated that he had not eaten much food all day but otherwise does not remember the sequence of events leading to his syncope and arrival to the ER. -appreciate cardiology evaluation, counting it is a cardiac related issue at this time -03/03/2023 echocardiogram shows EF of 55-60%, LV chamber is normal, no aortic valve stenosis, trace mitral valve regurg, trace tricuspid valve regurg, no pulmonary hypertension -continue to monitor. okay to stop tele (3) Hyperthermia: Code(s): R50.9 - Fever, unspecified Status: Acute Assessment and Plan: Patient was hyperthermic likely related to probably heat exhaustion -patient was cooled with ice packs to his neck and groin along with cooling blanket -body temperatures have been within normal limits since arrival to the ICU -resolved (4) Shock: Code(s): R57.9 - Shock, unspecified Status: Acute Assessment and Plan: Patient was hypotensive receiving 5 L IV fluid bolus. Despite that his blood pressures remained low in the ER, central line was inserted in the right IJ and patient was started on Levophed -patient states his normal blood pressures are 90s/60s, -Levophed was weaned off, pressures are much improved -creatinine has normalized, -very good urine output -continue Unasyn (03/03) for possible aspiration -03/02/2023: Preliminary Blood cultures are negative x2, vancomycin discontinued -Levophed off since 03/03; central line removed 03/05 Resolved (5) Acute kidney injury: Code(s): N17.9 - Acute kidney failure, unspecified Status: Acute Assessment and Plan: Acute kidney injury likely related to shock, rhabdomyolysis, hypotension -patient received 5 L IV fluid bolus in the ER -continue maintenance IV fluids as above -UA positive for blood and protein -03/03 renal ultrasound showed normal kidneys, no hydronephrosis -urine lytes did not show prerenal picture, urine eosinophils were negative -appreciate Nephrology patient and recommendations -creatinine has normalized -encourage p.o. fluid intake (6) Sick sinus syndrome: Code(s): I49.5 - Sick sinus syndrome Status: Acute Assessment and Plan: Sick sinus syndrome, patient has a defibrillator and pacemaker -pacemaker interrogation showing intermittent episodes of AFib (7) Elevated troponin: Code(s): R77.8 - Other specified abnormalities of plasma proteins Status: Acute Assessment and Plan: Elevated troponin likely related to type 2 infarct, troponins trending down -no chest pain -presented with syncope -history of sick sinus syndrome, atrial fibrillation -echocardiogram as above -12/17/2022: Nuclear medicine stress test showed normal myocardial perfusion at rest and during stress, LV ejection fraction was 64% (8) Paroxysmal atrial fibrillation: Code(s): I48.0 - Paroxysmal atrial fibrillation Status: Acute Assessment and Plan: Patient with history of proximal AFib, was in sinus rhythm this morning
[2023-03-06 12:18] LABS: Glucose Point of Care 89 mg/dl (65-105)
--- NOTE | 2023-03-06 12:53 | PC.NURSE ---
On 03/06/23, the student, [Unique Hedrick], provided care and [facility]. I have reviewed the student's documentation and agree with the findings.
--- NOTE | 2023-03-06 13:04 | P.PNNP_ITS ---
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 * s/p aggressive IVF resuscitation (5L given in ER) * follow-up on urine testing and renal ultrasound * continue IVFs but okay to decrease rate * follow repeat labs and UOP (2) Rhabdomyolysis: Code(s): M62.82 - Rhabdomyolysis Status: Acute Assessment and Plan: * was improving but 6000+ in the last few days * significantly elevated CK level noted * CPK up as high as 15,000 * s/p IVF resuscitation in ER and on maintenance IVFs * trend CPK (3) Syncope: Qualifiers: Syncope type: unspecified Qualified Code(s): R55 - Syncope and collapse Code(s): R55 - Syncope and collapse Status: Acute Assessment and Plan: * as noted on presentation * unclear how long patient was unresponsive/down * noted to be hypoglycemic, hyperthermic, and hypoxic when discovered * however, mentation preserved by arrival to ER * follow mentation and hemodynamics * suspected etiology due to volume depletion given evidence to date (4) Hyperthermia: Code(s): R50.9 - Fever, unspecified Status: Acute Assessment and Plan: * though to related to heat exhaustion * cooled with ice packs and cooling blanket on presentation * body temperatures have normalized * follow temperature trend (5) Shock: Code(s): R57.9 - Shock, unspecified Status: Acute Assessment and Plan: * resolved * noted inspite of aggressive IVF resuscitation * off vasopressors * patient states his normal BP runs ~ 90/60s * follow culture data * empiric antibiotic therapy * follow trend of hemodynamics (6) Elevated troponin: Code(s): R77.8 - Other specified abnormalities of plasma proteins Status: Acute Assessment and Plan: * noted on presentation * however, no chest pain reported and presented with syncope * cardiac history noted -- sick sinus syndrome and atrial fibrillation * Echo results reviewed * Cardiology recommendations noted (7) CTE (chronic traumatic encephalopathy): Code(s): F07.81 - Postconcussional syndrome Status: Acute Assessment and Plan: * as noted by history with regard to service * continue home medications Will continue to follow. Subjective Date/time seen: 03/06/23 13:04 Seems to be doing reasonably well at this time; making good urine output with stability in renal function; CPK remains better but still elevated and without significant change from yesterday by AM labs; no other issues/events overnight or earlier this morning. Exam Narrative: General: WD/WN male in NAD Heart: normal S1 and S2; no rub Lungs: clear to auscultation Abdomen: soft, nontender, nondistended, positive bowel sounds Extremities: no cyanosis or clubbing; trace edema Skin: warm and intact Objective Data Vital Signs Vital Signs: Vital Signs Temp Pulse Resp BP Pulse Ox O2 Del Method 03/06/23 08:13 Room Air 03/06/23 08:00 79 03/06/23 08:34 79 03/06/23
--- NOTE | 2023-03-06 13:04 | PM.PNNEP ---
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 (5L given in ER) follow-up on urine testing and renal ultrasound continue IVFs but okay to decrease rate follow repeat labs and UOP (2) Rhabdomyolysis: Code(s): M62.82 - Rhabdomyolysis Status: Acute Assessment and Plan: was improving but 6000+ in the last few days significantly elevated CK level noted CPK up as high as 15,000 s/p IVF resuscitation in ER and on maintenance IVFs trend CPK (3) Syncope: Qualifiers: Syncope type: unspecified Qualified Code(s): R55 - Syncope and collapse Code(s): R55 - Syncope and collapse Status: Acute Assessment and Plan: as noted on presentation unclear how long patient was unresponsive/down noted to be hypoglycemic, hyperthermic, and hypoxic when discovered however, mentation preserved by arrival to ER follow mentation and hemodynamics suspected etiology due to volume depletion given evidence to date (4) Hyperthermia: Code(s): R50.9 - Fever, unspecified Status: Acute Assessment and Plan: though to related to heat exhaustion cooled with ice packs and cooling blanket on presentation body temperatures have normalized follow temperature trend (5) Shock: Code(s): R57.9 - Shock, unspecified Status: Acute Assessment and Plan: resolved noted inspite of aggressive IVF resuscitation off vasopressors patient states his normal BP runs ~ 90/60s follow culture data empiric antibiotic therapy follow trend of hemodynamics (6) Elevated troponin: Code(s): R77.8 - Other specified abnormalities of plasma proteins Status: Acute Assessment and Plan: noted on presentation however, no chest pain reported and presented with syncope cardiac history noted -- sick sinus syndrome and atrial fibrillation Echo results reviewed Cardiology recommendations noted (7) CTE (chronic traumatic encephalopathy): Code(s): F07.81 - Postconcussional syndrome Status: Acute Assessment and Plan: as noted by history with regard to service continue home medications Will continue to follow. Subjective Date/time seen: 03/06/23 13:04 Seems to be doing reasonably well at this time; making good urine output with stability in renal function; CPK remains better but still elevated and without significant change from yesterday by AM labs; no other issues/events overnight or earlier this morning. Exam Narrative: General: WD/WN male in NAD Heart: normal S1 and S2; no rub Lungs: clear to auscultation Abdomen: soft, nontender, nondistended, positive bowel sounds Extremities: no cyanosis or clubbing; trace edema Skin: warm and intact Objective Data Vital Signs Vital Signs: Vital Signs Temp Pulse Resp BP Pulse Ox O2 Del Method 03/06/23 08:13 Room Air 03/06/23 08:00 79 03/06/23 08:34 79 03/06/23 08:30 79 138/81 03/06/23 04:00 88 03/06/23 03:54 97.9 F 85 18 116/62 95 03/06/23 00:00 100 03/05/23 20:00 96 03/05/23 20:58 97 03/05/23 20:00 96.8 F L 97 18 145/83 H 100 03/05/23 16:00 95 03/05/23 16:56 98.7 F 92 16 135/96 H 99 Intake/Output Intake/Output: Intake & Output 03/03/23 03/04/23 03/05/23 03/06/23 23:59 23:59 23:59 23:59 Intake Total 4344 6800 4390 840 Output Total 5400 3500 4675 1200 Balance -1056 3300 -285 -360 Meds/Results Medications: Active Medications Generic Name Dose Route Start Last Admin Trade Name Freq PRN Reason Stop Dose Admin
--- NOTE | 2023-03-06 13:42 | PCCCNOTE ---
On 03/06/23, the student, [Page Travis ], provided care and completed [facility] documentation on this patient. I have reviewed the student's documentation and agree with the findings.
--- NOTE | 2023-03-06 14:16 | PC.NURSE ---
On 03/06/23, the student, [Breanne Johnson], provided care and completed [facility] documentation on this patient. I have reviewed the student's documentation and agree with the findings.
[2023-03-06] MEDS: LACTATED RINGERS 1,000 ML 100 ML IV CONT (14:53)
[2023-03-06 16:53] LABS: Glucose Point of Care 96 mg/dl (65-105)
[2023-03-06] MEDS: RIVAROXABAN 20 MG TABLET PO (17:09)
[2023-03-06] MEDS: AMOXICILLIN/CLAVULANATE K 875-125 MG TAB 1 TABLET PO (20:01)
[2023-03-06] MEDS: DONEPEZIL HCL 10 MG TABLET PO (20:01)
[2023-03-06 21:09] LABS: Glucose Point of Care 102 mg/dl (65-105)
[2023-03-06] MEDS: traZODone HCL 50 MG TABLET 200 MG PO (21:59)
[2023-03-07] MEDS: LACTATED RINGERS 1,000 ML 100 ML IV CONT (02:45)
[2023-03-07 04:02] VITALS: BP 123/81; PULSE 78; RESP 17; TEMP 36.3; O2SAT 98
[2023-03-07] MEDS: traMADol HCL (*CRX) 50 MG TABLET PO ×4 (04:05→23:30)
[2023-03-07 05:30] LABS: Alanine Aminotransferase 84 U/L (6-50); Albumin Level 3.5 g/dL (3.5-5.1); Alkaline Phosphatase 48 U/L (38-126); Anion Gap 4 mmol/L (8-16); Aspartate Amino Transferase 156 U/L (17-59); Bilirubin,Total 1.1 mg/dL (0.2-1.3); Blood Urea Nitrogen 7 mg/dL (9-20); Calcium 8.6 mg/dL (8.4-10.2); Carbon Dioxide 29 mmol/L (22-30); Chloride 102 mmol/L (98-107); Estimated CRCL calculation 100 ml/min; Estimated Glomerular Filt Rate > 60; Glucose 94 mg/dL (65-110); Potassium 3.8 mmol/L (3.4-5.0); Sodium 135 mmol/L (137-145)
[2023-03-07 05:44] LABS: Creatine Kinase 6045 U/L (55-170)
[2023-03-07 08:24] LABS: Glucose Point of Care 94 mg/dl (65-105)
[2023-03-07 08:54] VITALS: BP 151/96; PULSE 81
[2023-03-07 08:56] VITALS: PULSE 84
[2023-03-07] MEDS: carvediloL 12.5 MG TABLET PO ×2 (08:56→20:43)
[2023-03-07] MEDS: AMOXICILLIN/CLAVULANATE K 875-125 MG TAB 1 TABLET PO ×2 (08:56→20:43)
[2023-03-07] MEDS: MEMANTINE 10 MG TABLET PO ×2 (08:57→17:09)
[2023-03-07] MEDS: PANTOPRAZOLE 40 MG TABLET PO (08:57)
[2023-03-07] MEDS: GABAPENTIN 400 MG CAPSULE 800 MG PO ×3 (08:57→17:09)
--- NOTE | 2023-03-07 09:11 | PM.IMPN ---
Progress Note: A&P Assessment and Plan (1) Rhabdomyolysis: Code(s): M62.82 - Rhabdomyolysis Status: Acute Assessment and Plan: Significantly elevated CK level to 14K with acute kidney injury -status post 5 L IV fluid bolus in the ER -currently on maintenance IV fluids -CK levels are unchanged today -very good urine output -encourage oral free water intake -advance IV fluids and add Lasix -stop tizanidine. -repeat UA in AM (2) Syncope: Qualifiers: Syncope type: unspecified Qualified Code(s): R55 - Syncope and collapse Code(s): R55 - Syncope and collapse Status: Acute Assessment and Plan: Patient presented with syncope and was found down unresponsive in his yard for unknown amount of time. -patient was found to be hypoglycemic in the field given D10. -when he arrived in the ER he was hyperthermic and hypoxic -he is currently awake, alert, oriented x3 -stated that he had not eaten much food all day but otherwise does not remember the sequence of events leading to his syncope and arrival to the ER. -appreciate cardiology evaluation, counting it is a cardiac related issue at this time -03/03/2023 echocardiogram shows EF of 55-60%, LV chamber is normal, no aortic valve stenosis, trace mitral valve regurg, trace tricuspid valve regurg, no pulmonary hypertension -continue to monitor (3) Hyperthermia: Code(s): R50.9 - Fever, unspecified Status: Acute Assessment and Plan: Patient was hyperthermic likely related to probably heat exhaustion -patient was cooled with ice packs to his neck and groin along with cooling blanket -body temperatures have been within normal limits since arrival to the ICU -resolved (4) Shock: Code(s): R57.9 - Shock, unspecified Status: Acute Assessment and Plan: Patient was hypotensive receiving 5 L IV fluid bolus. Despite that his blood pressures remained low in the ER, central line was inserted in the right IJ and patient was started on Levophed -patient states his normal blood pressures are 90s/60s, -Levophed was weaned off, pressures are much improved -creatinine has normalized, -very good urine output -continue Unasyn (03/03) for possible aspiration -03/02/2023: Preliminary Blood cultures are negative x2, vancomycin discontinued -Levophed off since 03/03; central line removed 03/05 Resolved (5) Acute kidney injury: Code(s): N17.9 - Acute kidney failure, unspecified Status: Acute Assessment and Plan: Acute kidney injury likely related to shock, rhabdomyolysis, hypotension -patient received 5 L IV fluid bolus in the ER -continue maintenance IV fluids as above -UA positive for blood and protein -03/03 renal ultrasound showed normal kidneys, no hydronephrosis -urine lytes did not show prerenal picture, urine eosinophils were negative -appreciate Nephrology patient and recommendations -creatinine has normalized -encourage p.o. fluid intake (6) Sick sinus syndrome: Code(s): I49.5 - Sick sinus syndrome Status: Acute Assessment and Plan: Sick sinus syndrome, patient has a defibrillator and pacemaker -pacemaker interrogation showing intermittent episodes of AFib (7) Elevated troponin: Code(s): R77.8 - Other specified abnormalities of plasma proteins Status: Acute Assessment and Plan: Elevated troponin likely related to type 2 infarct, troponins trending down -no chest pain -presented with syncope -history of sick sinus syndrome, atrial fibrillation -echocardiogram as above -12/17/22: Nuclear medicine stress test showed normal myocardial perfusion at rest and during stress, LVEF 64% (8) Paroxysmal atrial fibrillation: Code(s): I48.0 - Paroxysmal atrial fibrillation Status: Acute Assessment and Plan: Patient with history of proximal AFib -continue rivaroxaban -rate controlled (9) GERD (gastroesophageal reflux disease
[2023-03-07] MEDS: FUROSEMIDE INJ 40 MG/4 ML VIAL 20 MG IV PUSH ×2 (10:29→17:09)
[2023-03-07] MEDS: LACTATED RINGERS 1,000 ML 150 ML IV CONT ×2 (11:15→18:10)
[2023-03-07 11:49] LABS: Glucose Point of Care 101 mg/dl (65-105)
--- NOTE | 2023-03-07 13:10 | P.PNNP_ITS ---
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 * s/p aggressive IVF resuscitation (5L given in ER) * continue IVFs given elevated CPK persists * follow repeat labs and UOP (2) Rhabdomyolysis: Code(s): M62.82 - Rhabdomyolysis Status: Acute Assessment and Plan: * was improving but 6000+ in the last few days * significantly elevated CK level noted on admission * CPK up as high as 15,000 * s/p IVF resuscitation in ER and on maintenance IVFs currently * trend CPK * PRN IV lasix (3) Syncope: Qualifiers: Syncope type: unspecified Qualified Code(s): R55 - Syncope and collapse Code(s): R55 - Syncope and collapse Status: Acute Assessment and Plan: * as noted on presentation * unclear how long patient was unresponsive/down * noted to be hypoglycemic, hyperthermic, and hypoxic when discovered * however, mentation preserved by arrival to ER * follow mentation and hemodynamics * suspected etiology due to volume depletion given evidence to date (4) Hyperthermia: Code(s): R50.9 - Fever, unspecified Status: Acute Assessment and Plan: * though to related to heat exhaustion * cooled with ice packs and cooling blanket on presentation * body temperatures have normalized * follow temperature trend (5) Shock: Code(s): R57.9 - Shock, unspecified Status: Acute Assessment and Plan: * resolved * noted inspite of aggressive IVF resuscitation * off vasopressors * patient states his normal BP runs ~ 90/60s * running higher currently but off entresto since admission * cultures negative to date * follow trend of hemodynamics (6) Elevated troponin: Code(s): R77.8 - Other specified abnormalities of plasma proteins Status: Acute Assessment and Plan: * noted on presentation * however, no chest pain reported and presented with syncope * cardiac history noted -- sick sinus syndrome and atrial fibrillation * Echo results reviewed * Cardiology recommendations reviewed (7) CTE (chronic traumatic encephalopathy): Code(s): F07.81 - Postconcussional syndrome Status: Acute Assessment and Plan: * as noted by history with regard to service * continue home medications Will continue to follow. Subjective Date/time seen: 03/07/23 13:10 Overall, seems to be doing reasonably well; continues to make good urine output (has been receiving PRN diuretics) with stability in renal function; CPK still remains mildly elevated but no worse (but not much better either); no apparent distress noted; no other acute complaints voiced at the time of my visit. Exam Narrative: General: WD/WN male in NAD Heart: normal S1 and S2; no rub Lungs: clear to auscultation Abdomen: soft, nontender, nondistended, positive bowel sounds Extremities: no cyanosis or clubbing; trace edema Skin: no rash or nodules Objective Data Vital Signs Vital Signs: Vital Signs Temp Pulse Resp BP Pulse Ox O2 Del Method 03/07/23 13:02 98.4 F 79 18 137/87 9
--- NOTE | 2023-03-07 13:10 | PM.PNNEP ---
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 entresto use CROP SCOUT s/p aggressive IVF resuscitation (5L given in ER) continue IVFs given elevated CPK persists follow repeat labs and UOP (2) Rhabdomyolysis: Code(s): M62.82 - Rhabdomyolysis Status: Acute Assessment and Plan: was improving but 6000+ in the last few days significantly elevated CK level noted on admission CPK up as high as 15,000 s/p IVF resuscitation in ER and on maintenance IVFs currently trend CPK PRN IV lasix (3) Syncope: Qualifiers: Syncope type: unspecified Qualified Code(s): R55 - Syncope and collapse Code(s): R55 - Syncope and collapse Status: Acute Assessment and Plan: as noted on presentation unclear how long patient was unresponsive/down noted to be hypoglycemic, hyperthermic, and hypoxic when discovered however, mentation preserved by arrival to ER follow mentation and hemodynamics suspected etiology due to volume depletion given evidence to date (4) Hyperthermia: Code(s): R50.9 - Fever, unspecified Status: Acute Assessment and Plan: though to related to heat exhaustion cooled with ice packs and cooling blanket on presentation body temperatures have normalized follow temperature trend (5) Shock: Code(s): R57.9 - Shock, unspecified Status: Acute Assessment and Plan: resolved noted inspite of aggressive IVF resuscitation off vasopressors patient states his normal BP runs ~ 90/60s running higher currently but off entresto since admission cultures negative to date follow trend of hemodynamics (6) Elevated troponin: Code(s): R77.8 - Other specified abnormalities of plasma proteins Status: Acute Assessment and Plan: noted on presentation however, no chest pain reported and presented with syncope cardiac history noted -- sick sinus syndrome and atrial fibrillation Echo results reviewed Cardiology recommendations reviewed (7) CTE (chronic traumatic encephalopathy): Code(s): F07.81 - Postconcussional syndrome Status: Acute Assessment and Plan: as noted by history with regard to service continue home medications Will continue to follow. Subjective Date/time seen: 03/07/23 13:10 Overall, seems to be doing reasonably well; continues to make good urine output (has been receiving PRN diuretics) with stability in renal function; CPK still remains mildly elevated but no worse (but not much better either); no apparent distress noted; no other acute complaints voiced at the time of my visit. Exam Narrative: General: WD/WN male in NAD Heart: normal S1 and S2; no rub Lungs: clear to auscultation Abdomen: soft, nontender, nondistended, positive bowel sounds Extremities: no cyanosis or clubbing; trace edema Skin: no rash or nodules Objective Data Vital Signs Vital Signs: Vital Signs Temp Pulse Resp BP Pulse Ox O2 Del Method 03/07/23 13:02 98.4 F 79 18 137/87 99 03/07/23 08:55 Room Air 03/07/23 08:56 84 03/07/23 08:54 81 151/96 H 03/07/23 04:02 97.4 F L 78 17 123/81 98 03/06/23 20:30 98 Room Air 03/06/23 20:00 Room Air 03/06/23 20:01 92 03/06/23 19:20 98.0 F 92 18 136/87 99 Intake/Output Intake/Output: Intake & Output 03/04/23 03/05/23 03/06/23 03/07/23 23:59 23:59 23:59 23:59 Intake Total 6800 4390 3500 2960 Output Total 3500 4675 3400 800 Balance 3300 -851 917 6569 Meds/Results Medications: Active Medications Generic Name Dose Route Start Last Admin Trade Name Freq PRN Reason S
[2023-03-07 14:02] VITALS: BP 137/87; PULSE 79; RESP 18; TEMP 36.9; O2SAT 99
[2023-03-07] MEDS: RIVAROXABAN 20 MG TABLET PO (17:09)
[2023-03-07 17:20] LABS: Glucose Point of Care 92 mg/dl (65-105)
[2023-03-07 19:18] VITALS: BP 139/86; PULSE 70; RESP 18; TEMP 36.6; O2SAT 98
[2023-03-07 19:26] LABS: Glucose Point of Care 106 mg/dl (65-105)
[2023-03-07 20:43] VITALS: PULSE 70
[2023-03-07] MEDS: DONEPEZIL HCL 10 MG TABLET PO (20:43)
[2023-03-07] MEDS: traZODone HCL 50 MG TABLET 200 MG PO (22:06)
[2023-03-08] MEDS: LACTATED RINGERS 1,000 ML 150 ML IV CONT (02:00)
[2023-03-08 05:45] VITALS: BP 132/83; PULSE 73; RESP 18; TEMP 36.1; O2SAT 95
[2023-03-08 06:06] LABS: Appearance Urine Clear (Clear); Bilirubin Urine Negative (Negative); Blood Urine Negative (Negative); Color Urine Yellow (Yellow); Glucose Urine UA Negative (Negative); Ketones Urine Negative (Negative); Leukocyte Esterase Ur Negative LEU/UL (NEGATIVE); Nitrate Urine Negative (Negative); Protein Urine Negative (Negative); Specific Grav Ur 1.009 (1.001-1.035); Urobilinogen Urine 0.2 mg/dL (<2.0); pH Urine 7.5 (5.0-9.0)
[2023-03-08 06:11] LABS: Add Urine Microscopic? NO
[2023-03-08] MEDS: traMADol HCL (*CRX) 50 MG TABLET PO ×2 (07:47→13:35)
[2023-03-08 07:53] VITALS: RESP 18; O2SAT 95
[2023-03-08 08:07] VITALS: PULSE 72
[2023-03-08 08:07] LABS: Glucose Point of Care 100 mg/dl (65-105)
[2023-03-08] MEDS: carvediloL 12.5 MG TABLET PO (08:07)
[2023-03-08] MEDS: PANTOPRAZOLE 40 MG TABLET PO (08:07)
[2023-03-08] MEDS: MEMANTINE 10 MG TABLET PO (08:07)
[2023-03-08] MEDS: AMOXICILLIN/CLAVULANATE K 875-125 MG TAB 1 TABLET PO (08:08)
[2023-03-08] MEDS: GABAPENTIN 400 MG CAPSULE 800 MG PO ×2 (08:08→12:30)
[2023-03-08 08:16] LABS: Alanine Aminotransferase 80 U/L (6-50); Albumin Level 3.7 g/dL (3.5-5.1); Alkaline Phosphatase 50 U/L (38-126); Anion Gap 4 mmol/L (8-16); Aspartate Amino Transferase 124 U/L (17-59); Bilirubin,Total 1.1 mg/dL (0.2-1.3); Blood Urea Nitrogen 9 mg/dL (9-20); Calcium 8.7 mg/dL (8.4-10.2); Carbon Dioxide 34 mmol/L (22-30); Chloride 99 mmol/L (98-107); Estimated CRCL calculation 100 ml/min; Estimated Glomerular Filt Rate > 60; Glucose 99 mg/dL (65-110); Potassium 3.5 mmol/L (3.4-5.0); Sodium 137 mmol/L (137-145)
--- NOTE | 2023-03-08 09:10 | P.PNNP_ITS ---
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 * Urinalysis shows no blood on dipstick. So the myoglobin is not getting into the urine. * Urine output is really good. He is still getting IV fluids. * As long as he drinks plenty of fluid I think he can be discharged whenever it is okay from everybody else standpoint. He will need another BMP and CK next week per PCP. * I do not think he will need diuretics at home. (3) Syncope: Qualifiers: Syncope type: unspecified Qualified Code(s): R55 - Syncope and collapse Code(s): R55 - Syncope and collapse Status: Acute Assessment and Plan: * as noted on presentation * unclear how long patient was unresponsive/down * noted to be hypoglycemic, hyperthermic, and hypoxic when discovered * however, mentation preserved by arrival to ER * follow mentation and hemodynamics * suspected etiology due to volume depletion given evidence to date (4) Hyperthermia: Code(s): R50.9 - Fever, unspecified Status: Acute Assessment and Plan: * though to related to heat exhaustion * cooled with ice packs and cooling blanket on presentation * body temperatures have normalized * follow temperature trend (5) Shock: Code(s): R57.9 - Shock, unspecified Status: Acute Assessment and Plan: * resolved (6) Elevated troponin: Code(s): R77.8 - Other specified abnormalities of plasma proteins Status: Acute Assessment and Plan: * noted on presentation * however, no chest pain reported and presented with syncope * cardiac history noted -- sick sinus syndrome and atrial fibrillation * Echo results reviewed * Cardiology recommendations reviewed (7) CTE (chronic traumatic encephalopathy): Code(s): F07.81 - Postconcussional syndrome Status: Acute Assessment and Plan: * as noted by history with regard to service * continue home medications Subjective Date/time seen: 03/08/23 09:10 Interval history: Patient feels okay. He is up and around and fully dressed. He is eager for discharge Exam Narrative: General: WD/WN male in NAD Heart: normal S1 and S2; no rub or gallop Lungs: clear bilaterally Abdomen: soft, nontender, nondistended, positive bowel sounds Extremities: no cyanosis or clubbing; trace edema Skin: no rash Objective Data Vital Signs Vital Signs: Vital Signs - 24 hr 03/07/23 14:02 03/07/23 19:18 03/07/23 19:47 Temperature 98.4 F 97.9 F Pulse Rate 79 70 Respiratory Rate 18 18 Blood Pressure 137/87 139/86 Pulse Oximetry 99 98 Oxygen Delivery Room Air 03/07/23 20
--- NOTE | 2023-03-08 09:10 | PM.PNNEP ---
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 Urinalysis shows no blood on dipstick. So the myoglobin is not getting into the urine. Urine output is really good. He is still getting IV fluids. As long as he drinks plenty of fluid I think he can be discharged whenever it is okay from everybody else standpoint. He will need another BMP and CK next week per PCP. I do not think he will need diuretics at home. (3) Syncope: Qualifiers: Syncope type: unspecified Qualified Code(s): R55 - Syncope and collapse Code(s): R55 - Syncope and collapse Status: Acute Assessment and Plan: as noted on presentation unclear how long patient was unresponsive/down noted to be hypoglycemic, hyperthermic, and hypoxic when discovered however, mentation preserved by arrival to ER follow mentation and hemodynamics suspected etiology due to volume depletion given evidence to date (4) Hyperthermia: Code(s): R50.9 - Fever, unspecified Status: Acute Assessment and Plan: though to related to heat exhaustion cooled with ice packs and cooling blanket on presentation body temperatures have normalized follow temperature trend (5) Shock: Code(s): R57.9 - Shock, unspecified Status: Acute Assessment and Plan: resolved (6) Elevated troponin: Code(s): R77.8 - Other specified abnormalities of plasma proteins Status: Acute Assessment and Plan: noted on presentation however, no chest pain reported and presented with syncope cardiac history noted -- sick sinus syndrome and atrial fibrillation Echo results reviewed Cardiology recommendations reviewed (7) CTE (chronic traumatic encephalopathy): Code(s): F07.81 - Postconcussional syndrome Status: Acute Assessment and Plan: as noted by history with regard to service continue home medications Subjective Date/time seen: 03/08/23 09:10 Interval history: Patient feels okay. He is up and around and fully dressed. He is eager for discharge Exam Narrative: General: WD/WN male in NAD Heart: normal S1 and S2; no rub or gallop Lungs: clear bilaterally Abdomen: soft, nontender, nondistended, positive bowel sounds Extremities: no cyanosis or clubbing; trace edema Skin: no rash Objective Data Vital Signs Vital Signs: Vital Signs - 24 hr 03/07/23 14:02 03/07/23 19:18 03/07/23 19:47 Temperature 98.4 F 97.9 F Pulse Rate 79 70 Respiratory Rate 18 18 Blood Pressure 137/87 139/86 Pulse Oximetry 99 98 Oxygen Delivery Room Air 03/07/23 20:43 03/08/23 05:45 03/08/23 07:53 Temperature 97.0 F L Pulse Rate 70 73 Respiratory Rate 18 18 Blood Pressure 132/83 Pulse Oximetry 95 95 Oxygen Delivery Room Air 03/08/23 08:07 Temperature Pulse Rate 72 Respiratory Rate Blood Pressure Pulse Oximetry Oxygen Delivery Intake/Output Intake/Output: Intake & Output 03/05/23 03/06/23 03/07/23 03/08/23 23:59 23:59 23:59 23:59 Intake Total 4390 3500 4600 2580 Output Total 4675 3400 4675 800 Balance -285 100 -75 1780 Meds/Results Medications: Active Medications Generic Name Dose Route Start Last Admin Trade Name Freq PRN Reason Stop Dose Admin Amoxic
[2023-03-08 11:46] LABS: Creatine Kinase 4869 U/L (55-170)
[2023-03-08 12:04] LABS: Glucose Point of Care 97 mg/dl (65-105)
--- NOTE | 2023-03-08 13:38 | PM.DS ---
DS: Admitting Diagnosis Discharge Date 03/08/23 Admitting Diagnosis Syncope DS: Discharge Diagnosis Discharge Diagnosis (1) Rhabdomyolysis: Code(s): M62.82 - Rhabdomyolysis Status: Acute (2) Syncope: Qualifiers: Syncope type: unspecified Qualified Code(s): R55 - Syncope and collapse Code(s): R55 - Syncope and collapse Status: Acute (3) Hyperthermia: Code(s): R50.9 - Fever, unspecified Status: Acute (4) Shock: Code(s): R57.9 - Shock, unspecified Status: Acute (5) Acute kidney injury: Code(s): N17.9 - Acute kidney failure, unspecified Status: Acute (6) Sick sinus syndrome: Code(s): I49.5 - Sick sinus syndrome Status: Acute (7) Elevated troponin: Code(s): R77.8 - Other specified abnormalities of plasma proteins Status: Acute (8) Paroxysmal atrial fibrillation: Code(s): I48.0 - Paroxysmal atrial fibrillation Status: Acute (9) GERD (gastroesophageal reflux disease): Code(s): K21.9 - Gastro-esophageal reflux disease without esophagitis Status: Acute (10) CTE (chronic traumatic encephalopathy): Code(s): F07.81 - Postconcussional syndrome Status: Acute DS: Summary Hospital Course Reason for hospitalization: 62yo male with CHF, chronic traumatic encephalopathy, HTN, pAFib and SSS with PM/defib here for syncope found unresponsive in his yard for unknown amount of time with elevated body temperature, rhabdomyolysis, and shock. Please see H&P for details. Hospital Course: Patient presented with syncope and was found down unresponsive in his yard for unknown amount of time. Patient was found to be hypoglycemic in the field and was given D10. He was also hyperthermic and hypoxic. He stated that he had not eaten much food all day but otherwise does not remember the sequence of events leading to his syncope and arrival to the ER. Echo shows EF of 55-60%, LV chamber is normal, no aortic valve stenosis, trace mitral valve regurg, trace tricuspid valve regurg, no pulmonary hypertension. Patient was hyperthermic likely related to probably heat exhaustion. He was cooled with ice packs to his neck and groin along with cooling blanket. Body temperatures have normalized. Patient was hypotensive receiving 5 L IV fluid bolus. Despite that his blood pressures remained low in the ER so central line was inserted in the right IJ and patient was started on Levophed. Levophed was weaned off and pressures were much improved. Acute kidney injury likely related to shock, rhabdomyolysis, and hypotension. UA positive for blood and protein. Renal ultrasound showed normal kidneys, no hydronephrosis. Appreciate Nephrology patient and recommendations. Significantly elevated CK level to 14K with acute kidney injury. CK levels trended down. UA was clear. Elevated troponin likely related to type 2 infarct, troponins trending down. 12/17/22: Nuclear medicine stress test showed normal myocardial perfusion at rest and during stress, LVEF 64%. Patient had clinical improvement and was able to be discharged home on 03/08/23. Status at Discharge Cognitive/behavioral status at discharge: Stable Time Spent with Patient Time attestation: Total time spent providing and/or coordinating discharge services: 39 minutes Exam Narrative: AF 97.0 132/83 72 18 95% ra Gen - NARD Chest - CTA bilaterally, nml RR CV - RRR S1/S2 Abd - Soft, NT/ND, Positive BS Ext - no pedal edema Psych - Nml mood and affect Skin - Warm and dry DS: Data Data Completed and Pending Labs on day of discharge: Labs from last 24 hours 03/08/23 03/08/23 03/08/23 12:01 08:04 06:20 Sodium 137 Potassium 3.5 Chloride 99 Carbon Dioxide 34 H Anion Gap 4 L BUN 9 Creatinine 0.80 Estim Creat Clear Calc 100 Estimated GFR > 60 Glucose 99 POC Capillary Glucose 97 100 Calcium 8.7 Total Bilirubin 1.1
== END 2023-03-08 14:50 | disposition home or self-care (01) | DRG 922 ==
LOC: ANHED 19:10 → ANHICU 03-03 00:07 → ANH2MED 03-08 13:48 → ANHICU 03-10 13:55
PROVIDERS: Emergency Medicine; Internal Medicine; Admitting Provider Internal Medicine; Emergency Provider Emergency Medicine; Visit Provider Internal Medicine
DX: T67.5XXA Heat exhaustion, unspecified, initial encounter (principal); R57.1 Hypovolemic shock; M62.82 Rhabdomyolysis; R57.9 Shock, unspecified; N17.9 Acute kidney failure, unspecified; I42.8 Other cardiomyopathies; E86.9 Volume depletion, unspecified; I11.0 Hypertensive heart disease with heart failure; I50.9 Heart failure, unspecified; I48.0 Paroxysmal atrial fibrillation; I49.5 Sick sinus syndrome; E78.5 Hyperlipidemia, unspecified; K21.9 Gastro-esophageal reflux disease without esophagitis; G62.9 Polyneuropathy, unspecified; G47.33 Obstructive sleep apnea (adult) (pediatric); F43.10 Post-traumatic stress disorder, unspecified; F07.81 Postconcussional syndrome; F32.A Depression, unspecified; Z79.01 Long term (current) use of anticoagulants; Z87.820 Personal history of traumatic brain injury; Z87.891 Personal history of nicotine dependence; Z95.810 Presence of automatic (implantable) cardiac defibrillator
CPT/HCPCS: 36415; 36556; 70450; 71045; 71275; 74174; 76705; 76775; 80048; 80053; 80074; 80307; 81001; 81003; 82533; 82550; 82570; 82948; 83605; 83735; 84100; 84133; 84300; 84484; 85025; 85055; 85610; 85730; 85999; 87040; 93005; 93306; 93880; 96361; 96365; 96366; 96367; 96375; 99291; A9270; C1751; J0131; J0295; J1940; J3370; J3475; J7030; J7120; Q9967

== ENCOUNTER 2025-04-12 20:49 | Emergency (ER) | payer MEDICARE, SELFPAY ==
--- OUTSIDE RECORDS SUMMARY | 2025-04-12 20:52 | XMS_ITS | Encounter Summary ---
Author Organization [facility] Healthcare Address [address] [place] [address] Care Team Providers Care Support Worker Name Role Phone Ta Norman MD Primary Care Provider [phone] Pilo Latham MD Unavailable [phone] Reshma Davenport MD PhD Unavailable [phone] Daryn Degroot DO Unavailable [phone] Balta Sparrow MD Unavailable Austyn Ngo MD Unavailable [phone] Reason for Visit * Reason Onset Date Comments Anticoagulation 04/12/2024 Encounter Details Date Type Department Care Team (Late st Contact Info) Description 04/12/2024 Telephone [facility] [address] [facility] [address] [place] [address] Ozzy Joyner MD [address] [facility] [address] [place] [address] Anticoagulation Social History Tobacco Use Types Packs/Day Years Used Date Smoking Tobacco: Former Cigarettes 1.5 32 1 12/31/1978 - 10/30/2011 Smokeless Tobacco: Never Comments:2022 PACK HX / former smoker Alcohol Use Standard Drinks/Week Comments No 0 (1 standard drink = 0.6 oz pur e alcohol) AUDIT-C Answer Date Recorded Q1: How often do you have a drink containing alcohol? Never 02/24/2024 Q2: How many drinks containi ng alcohol do you have on a typical day when you are drinking? Patient does not drink 4 Q3: How often do you have si x or more drinks on one occasion? Never 02/24/2024 PHQ-2 Answer Date Recorded PHQ-2 Total Score (If total score is 3 or more points, staff should administer the PHQ-9) 5 03/24/2024 Hunger Vital Sign Answer Date Recorded Within the past 12 months, y ou worried that your food would run out before you got the money to buy more. Never true 12/26/19 24 Within the past 12 months, t he food you bought just didn't last and you didn't have money to get more. 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 Author CCM Chronic Pain Care Plan Chronic Care Management Improving( 12:45 PM CDT) No Mayte alba, Tarah Nath, CATHY Note: Problem: Chronic Pain Goals: 1. Minimize further functional decline 2. Maximize quality of life 3. Control pain Strategies: - Activity/exercise program recommendation - Conservative stepwise pain medicine strategy with multi-disciplinary approach - Recommend healthy lifestyle strategies and compensatory methods as needed documented as of this encounter Visit Diagnoses Not on filedocumented in this encounter Care Teams Support Worker Relationship Specialty Start Date End Date Ta Norman MD [address] [facility] [address] [place] [address] PCP - General 12/29/12 Pilo Latham MD [address] [facility] [place] [address] Medical Oncologist/Banana Ripening Room Supervisor Hematology 12/31/19 Reshma Davenport MD PhD [address] [facility] [place] [address] Consulting Physician Psychiatry 01/19/21 Daryn Degroot DO [address] [place] [address] Referring Physician Neurology 01/21/21 Balta Sparrow MD [address] [facility] [address] [place] [address] Referring Physician Psychiatry 01/21/21 Austyn Ngo MD [address] [facility] [address] [address] Consulting Physician Otolaryngology 10/11/24 documented as of this encounter
--- OUTSIDE RECORDS SUMMARY | 2025-04-12 20:52 | XMS_ITS | Encounter Summary ---
Author Organization [facility] Address 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 Gender Identity Not on file Sexual Orientation Not on file documented as of this encounter Plan of Treatment Not on file documented as of this encounter Procedures Procedure Name Priority Date/Time Associated Diagnosis Comments POC ACTIVATED CLOTTING TIME Routine 02/06/2007 9:25 AM CDT PT AND APTT Routine 02/06/2007 6:17 AM CDT CBC WITH DIFFERENTIAL Routine 02/06/2007 6:17 AM CDT CBC WITH DIFFERENTIAL Routine 02/06/2007 6:17 AM CDT BASIC METABOLIC PANEL Routine 02/06/2007 6:17 AM CDT documented in this encounter Results * POC ACTIVATED CLOTTING TIME (02/06/2007 9:25 AM CDT) Pathologist [facility] ACT POC 209 Seconds INTERFACE SYSTEM Comment: Note sheath pull range change effective 05/16/2006. ACT value for sheath pull at [facility] has been established to be < or = to 1 40. (See also Nursing Procedures for sheath pull in related nursing areas) 02/06/2007 9:25 AM CDT Tad Holguin MD POINT OF CARE TESTING Edited Performing Organization Address [facility] de Phone Number INTERFACE SYSTEM Refer to clinic/hospital department * CBC WITH DIFFERENTIAL (02/06/2007 6:17 AM CDT) NEUTROPHILS 60 45 - 70 % INTERFAC E SYSTEM LYMPHOCYTES 32 16 - 45 % INTERFAC E SYSTEM MONOCYTES 5 3 - 13 % INTERFACE SYSTEM EOSINOPHILS 3 0 - 7 % INTERFAC E SYSTEM BASOPHILS 0 0 - 2 % INTERFACE SYSTEM NEUTROPHIL ABSOLUTE 5.94 1.90 - 7.00 K/uL INTERFACE SYSTEM LYMPHOCYTE ABSOLUTE 3.13 0.70 - 4.50 K/uL INTERFACE SYSTEM MONOCYTE ABSOLUTE 0.51 0.10 - 1.30 K/uL INTERFACE SYSTEM EOSINOPHIL ABSOLUTE 0.31 0.00 - 0.70 K/uL INTERFACE SYSTEM BASOPHILS ABSOLUTE 0.02 0.00 - 0.20 K/uL INTERFACE SYSTEM 02/06/2007 6:17 AM CDT Tad Holguin MD HEMATOLOGY ORDERABLES Edited Performing Organization Address [facility] Phone Number INTERFACE SYSTEM Refer to clinic/hospital department * (ABNORMAL) CBC WITH DIFFERENTIAL (02/06/2007 6:17 AM CDT) WBC 9.9(H) 4.0 - 9.8 K/uL INTERFACE SYSTEM RBC 5.41(H) 4.50 - 5.40 M/uL INTERFACE SYSTEM HEMOGLOBIN 17.0(H) 13.6 - 16.5 g/dL INTERFACE SYSTEM HEMATOCRIT 49.2(H) 40.0 - 48.0 % INTERFACE SYSTEM MCV 90.9 82.0 - 99.0 fL INTERFACE SYSTEM MCH 31.4 27.2 - 32.6 pg INTERFACE SYSTEM MCHC 34.6 31.5 - 35.5 % INTERFACE SYSTEM RDW 12.1 11.5 - 14.5 % INTERFACE SYSTEM RDW-STDEV 39.8 37.1 - 48.7 fL INTERFACE SYSTEM PLATELETS 257 140 - 350 K/uL INTERFACE SYSTEM MPV 9.6 9.3 - 12.4 fL INTERFACE SYSTEM 02/06/2007 6:17 AM CDT Tad Holguin MD HEMATOLOGY ORDERABLES Edited Performing Organization Address [facility] Phone Number INTERFACE SYSTEM Refer to clinic/hospital department * PT AND APTT (02/06/2007 6:17 AM CDT) PROTIME 13.4 12.7 - 15.1 Seconds INTERFACE SYSTEM INR 1.0 0.9 - 1.1 INTERFACE SYSTEM Comment: INR Therapeutic Range: Adult: 2.0 - 3.0 for pulmonary embolism or prophylaxis against venous thrombosis or systemic embolization. 2.0 - 3.0 for patients with tissue heart valves. 2.5 - 3.5 for patients with mechanical heart valves or post OH. Pediatric (12 years and under): 1.5 - 3.0 Although the target range in children is not well established , INR values of 1.5 - 3.0 are recommended for most patients. Higher values have been used in children with prosthetic cardiac valves and hereditary clotting disorders. (<3 days) therapeutic ranges have not been established. PTT 31.5 24.4 - 36.4 Seconds INTERFACE SYSTEM Comment: PTT Therapeutic Range: Heparin Level PTT (seconds) <0.10 units/mL <53 0.10 - 0.30 units/mL 53 - 67 0.30 - 0.70 units/mL* 67 - 95* 0.70 - 1.00 units/mL 95 - 116 *corresponds to therapeutic range for unfractionated heparin 02/06/2007 6:17 AM CDT Tad Holguin MD HEMATOLOGY ORDERABLES Edited Performing Organization Address [facility] Phone Number INTERFACE SYSTEM Refer to clinic/hospital department * (ABNORMAL) BASIC METABOLIC PANEL (02/06/2007 6:17 AM CDT) GLUCOSE 126(H) 65 - 99 mg/dL INTERFACE SYSTEM CREATININE 0.95 0.67 - 1.17 mg/dL INTERFACE SYSTEM CALCIUM 8.2(L) 8.4 - 10.2 mg/dL INTERFACE SYSTEM BUN 12 6 - 20 mg/dL INTERFACE SYSTEM SODIUM 142 135 - 145 mmol/L INTERFACE SYSTEM POTASSIUM 4.1 3.5 - 4.9 mmol/L INTERFACE SYSTEM Comment:Slight hemolysis pre sent. Result may be falsely elevated. CHLORIDE 104 96 - 108 mmol/L INTERFACE SYSTEM CO2 27 22 - 30 mmol/L INTERFACE SYSTEM GFR, >60 >=60 mL/min/1. 7 sq meter INTERFACE SYSTEM GFR >60 >=60 mL/min/1. 7 sq meter INTERFACE SYSTEM Comment: Estimated GFR rate interpretative information for both Americans and non- Americans is available on the [facility] [employer] at: [email or web address] Select: Lab Policies and Procedures Select: Reference Ranges - GFR 02/06/2007 6:17 AM CDT Tad Holguin MD CHEMISTRY ORDERABLES Edited INTERFACE SYSTEM Refer to clinic/hospital department documented in this encounter Visit Diagnoses Diagnosis Supraventricular premature beats- Primary documented in this encounter Care Teams Gis Physical Scientist Relationship Specialty Start Date End Date Ta Norman MD PCP - General 11/14/15 documented as of this encounter
--- OUTSIDE RECORDS SUMMARY | 2025-04-12 20:52 | XMS_ITS | Clinical Summary ---
Author Organization [facility] Address [address] [place] [address] Care Team Providers Care Vp Genetic Name Role Phone Ta Norman MD Primary Care Provider [phone] Rishi Villatoro MD Unavailable [phone] Source Comments [facility],non-owned Affiliates and Associated Physician Practices is amultiple site organization consisting of ambulatory clinics and hospital sitesin [place], [place], [place] and [place]. This disclosure is being madepursuant to the Care Everywhere program and may not contain all information available regarding this patient. Last updated 18.[facility] Allergies Active Allergy Reactions Criticality Noted Date Comments Meperidine Unknown 06/09/2015 Methadone Unknown 06/09/2015 Mirtazapine Other Reaction: sedation, Quetiapine Other Reaction: heart problems, Shellfish Allergy Unknown 06/09/2015 Simvastatin Myalgias Reaction: myalgia, Medications * Be aware that medications may not be up to date on this document. Alwaysverify current medications with the patient. traMADol ER 24hr (ULTRAM ER) 100 MG tablet Take 100 mg by mouth once daily Active traZODone (DESYREL) 100 MG tablet Take 100 mg by mouth at bedtime Active diazepam (VALIUM) 10 MG tablet Take 10 mg by mouth 3 times daily as needed Active hydrOXYzine pamoate (VISTARIL) 100 MG capsule Take 100 mg by mouth at bedtime Active sildenafil (VIAGRA) 100 MG tabletIndications :Atherosclerosis of [place] coronary artery of [place] heart without angina pectoris,AV block, 2nd degree,Paroxysmal atrial fibrillation (HCC),VT (ventricular tachycardia) (HCC),DCM (dilated cardiomyopathy) (HCC) 100 mg as needed 6 Active carvedilol (COREG) 12.5 MG tablet Take 12.5 mg by mouth 2 times daily with morning and evening meal Active lisinopril (PRINIVIL;ZESTRIL ) 5 MG tablet Take 5 mg by mouth once daily Active atorvastatin (LIPITOR) 40 MG tablet Take 40 mg by mouth at bedtime Active rivaroxaban (XARELTO) 20 MG tablet Take 1 (one) tablet by mouth daily with food 90 tablet 3 1 Active Active Problems Patient Care Coordination No te Formatting of this note migh t be different from the original. 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 Gtz on 03/27/2018 RA: MEDT [id number] SN: [id number] (Implanted 01/28/2007) RV Lead Model 7122Q/65 Serial [id number] Implanted 03/27/18 LV Lead Model 1458Q/86 Serial [id number] Implanted 03/27/18 [employer]onic Pacemaker - Versa [id number] SN: [id number] - Implanted 02/08/[address] Geo Gtz Explanted by Dr. Gtz 03/27/18 RV: MEDT [id number] SN: [id number] (Implanted 01/28/2007) Capped by Dr. Gtz on 03/27/18 Paroxysmal atrial fibrillation 06/09/2015 Pure hypercholesterolemia 06/09/2015 Resolved Problems Problem Noted Date Diagnosed Date Resolved Date Pacemaker reprogramming/check 02/10/2018 03/31/2018 Family History Relation Name Status Comments Father (Age 53) due t o complications of hepatitis Mother Alive alive with syst emic lupus erythathematosis Social History Tobacco Use Types Packs/Day Years Used Date Smoking Tobacco: Former Cigarettes 1 24 0 11/24/1982 - 11/24/2006 Smokeless Tobacco: Never Comments:d/c 2006 after smok ing 1 pack/day from 1982 to 2006 Alcohol Use Standard Drinks/Week Comments No 0 (1 standard drink = 0.6 oz pur e alcohol) Sex and Gender Information Value Date Recorded Sex Assigned at Not on file Legal Sex Male 8:14 AM CDT Gender Identity Not on file Sexual Orientation Not on file Last Filed Vital Signs Vital Sign Reading Time Taken Comments Blood Pressure 120/82 12/06/2020 12:40 PM [employer]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 Pulse 65 12/06/2020 12:40 PM [employer]400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 Temperature 36.8 C (98.2 F) 03/27/2018 7:07 AM CDT Respiratory Rate 12 12/06/2020 12:40 PM [employer]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 Oxygen Saturation 97% 03/27/2018 1:50 PM CDT Inhaled Oxygen Concentration - - Weight 100.2 kg (221 lb) 12/06/2020 12:40 PM [employer]400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 Height 177.8 cm (5' 10 ) 12/06/2020 12:40 PM [employer]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 Body Mass Index 31.71 12/06/2020 12:40 PM [employer]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 Plan of Treatment Health Maintenance Due Date Last Done Comments COLOGUARD (AGES 45-75) - COLON CA SCREENING [address] COLONOGRAPHY - COLON CA SCREENING 1962 FIT - COLON CA SCREENING 1962 FLEX SIG - COLON CA SCREENING 1962 HIV SCREENING 1977 HEPATITIS C SCREENING 12/23/1980 DTAP/TDAP/TD VACCINES (1 - Tdap) 1981 PNEUMOCOCCAL VACCINE 50+ (1 of 1 - PCV) 2012 ZOSTER VACCINE (1 of 2) 2012 SCREENING FOR DIABETES 07/03/2017 COVID-19 VACCINE (1 - season) 2024 DEPRESSION SCREENING 11/24/2024 INFLUENZA VACCINE (Season Ended) 2025 10/10/2020, 10/22/2019, 08/04/2019, Additional history exists COLONOSCOPY - COLON CA SCREENING 05/03/2030 05/03/2020 Colorectal Cancer Screening 05/03/2030 Respiratory Syncytial Virus (RSV) Vaccine Pt: or over 60 yrs (1 - 1-dose 75+ series) 2037 HEPATITIS B VACCINE Aged Out No longe r eligible based on patient's age to complete this topic HIB VACCINE Aged Out No longer eligi ble based on patient's age to complete this topic HPV VACCINE Aged Out No longer eligi ble based on patient's age to complete this topic MENINGOCOCCAL (Group B) VACCINE SHARED DECISION-MAKING Aged Out No longer eligible based on patient's age to complete this topic MENINGOCOCCAL GROUPS A/C/Y/W VACCINE Aged Out No longer eligible based on patient's age to complete [place] [address] MEDICARE [facility] [employer] [address] [place] [address] Care Teams Vp Genetic Relationship Specialty Start Date End Date Ta Norman MD PCP - General Internal Medicine 06/09/15 Rishi Villatoro MD Cardiovascular Disease 06/09/15
--- OUTSIDE RECORDS SUMMARY | 2025-04-12 20:52 | XMS_ITS | Referral Summary ---
Author Organization [facility] Address [address] [place] [address] Care Team Providers Care General Internist And Physician Leader Name Role Phone Ta Norman MD Primary Care Provider Pilo Latham MD Unavailable [phone] Reshma Davenport MD PhD Unavailable [phone] Daryn Degroot DO Unavailable [phone] Balta Sparrow MD Unavailable Austyn Ngo MD Unavailable [phone] Encounters Date Type Department Care Team Description 04/12/2025 12:31 PM CDT Hospital Encounter [facility] [address] [facility] [address] [place] [address] Ozzy Joyner MD Cervical spondylosis with radiculopathy (Primary Dx); Lumbar disc disease with radiculopathy 04/11/2025 Telephone [facility] [address] [facility] [address] [place] [address] Ozzy Joyner MD [facility] Preprocedure 03/30/[address] [facility] [place] [address] [place] [address] Amisha Robin MD EMILIA (obstructive sleep apnea) (Primary Dx) 03/30/2025 11:45 AM CDT Office Visit [facility] [place] [address] [place] [address] Amisha Robin MD EMILIA (obstructive sleep apnea) (Primary Dx); Polycythemia, secondary; Cigarette nicotine dependence in remission; ICD (implantable cardioverter-defibrilla tor) in place; Traumatic brain injury, with loss of consciousness of 6 hours to 24 hours, sequela; Psychophysiological insomnia; Multiple pulmonary nodules; Nocturnal sleep-related eating disorder; Other fatigue; BMI 34.0-34.9,adult 03/08/2025 Results Follow-Up [address] [id number] Ta Norman MD Thyroid Function [place], CBC with auto differential, Comprehensive metabolic panel, Additional followed-up results: 2 03/08/2025 2:40 PM CDT Lab [place] [id number] [facility] [address] [place] [phone] Moderate episode of recurrent major depressive disorder (HCC); Mixed hyperlipidemia 03/08/2025 2:00 PM CDT Office Visit [address] [phone] Ta Norman MD 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) (Primary Dx); Moderate episode of recurrent major depressive disorder (HCC); Coronary artery disease involving gila river coronary artery of gila river heart without angina pectoris; Paroxysmal atrial fibrillation (HCC); Mixed hyperlipidemia 02/02/2025 12:30 PM CDT - 02/02/2025 11:59 PM CDT Hospital Encounter [facility] [place] [facility] [address] [address] Ozzy Joyner MD Lumbar disc disease with radiculopathy (Primary Dx); Cervical spondylosis with radiculopathy Discharge Disposition: Discharge to home or self care 01/31/2025 Telephone [facility] [address] [place] [address] Ozzy Joyner MD PMC Preprocedure 01/25/2025 Telephone [facility] [address] [place] [address] Ozzy Joyner MD Anticoagulation from Last 3 Months Allergies Active Allergy Reactions Criticality Noted Date Comments Lisinopril Cough Low 12/26/2023 Meperidine Anaphylaxis,Other (S ee comments) High 01/07/2006 Reaction: heart stopped Methadone Mental status changes Low 12/10/2018 Mirtazapine Other (See comments) Low Reaction: sedation, Niacin Flushing (skin) Low 10/23/2010 Pravastatin Other (See comments) Low 03/14/2011 unknown Quetiapine Anaphylaxis,Palpitations High 07/13/2007 Reaction: heart problems, Simvastatin Muscle pain Medium 01/16/2011 Medications traMADol (ULTRAM) 50 mg tablet as needed Active carvediloL (COREG) 25 mg tablet Take 1 tablet (25 mg total) by mouth daily Active sildenafiL (VIAGRA) 100 mg tablet 1 tablet (100 mg total) as needed 6 Active atorvastatin (LIPITOR) 40 mg tablet Take 1 tablet (40 mg total) by mouth nightly Active rivaroxaban (XARELTO) 20 mg tablet 1 tablet (20 mg total) daily Active traZODone (DESYREL) 100 mg tablet Take 2 tablets (200 mg total) by mouth nightly Active gabapentin (NEURONTIN) 800 mg tablet Take 1 tablet (800 mg total) by mouth 3 (three) times a day Active memantine (NAMENDA) 10 mg tabletIndicatio ns:Moderate to Severe Alzheimer's Type Dementia Take 1 tablet (10 mg total) by mouth 2 (two) times a day 60 tablet 11 3 Active baclofen (LIORESAL) 10 mg tabletIndicatio ns:Myalgia of muscle of neck Take 0.5 tablets (5 mg total) by mouth 3 (three) times a day as needed for muscle spasms 45 tablet 1 3 Active fluoride, sodium, 1.1 % paste USE DIRECTED BY MOUTH ONCE A DAY FOR DENTAL HEALTH TOOTHPASTE (DO NOT SWALLOW) 3 Active dextroamphetami ne-amphetamine (ADDERALL) 20 mg tablet 3 Active diazePAM (VALIUM) 5 mg tablet [address] (CYMBALTA) 60 mg capsule 4 Active saliva stimulant comb. no.5 (SalivaSure) lozenge DISSOLVE 1 LOZENGE BY MOUTH THREE TIMES A DAY NEEDED FOR DRY MOUTH AND THROAT 4 Active galantamine ER (RAZADYNE ER) 8 mg 24 hr capsule Take 1 capsule (8 mg total) by mouth 3 Active Entresto 49-51 mg tablet 4 Active naloxone (NARCAN) 4 mg/actuation spray,non-aeros ol Administer into affected nostril(s) 4 Active tirzepatide, weight loss, (Zepbound) 2.5 mg/0.5 mL pen injectorIndicat ions:obstructiv e sleep apnea syndrome Inject 0.5 mL (2.5 mg total) under the skin every 7 days 2 mL 5 04/29/20 25 Active Trintellix 10 mg tablet TAKE ONE TABLET BY MOUTH ONCE A DAY FOR MOOD 4 03/30/20 25 Active Problems Problem Noted Date Diagnosed Date Adjustment disorders, unspecified 10/13/2024 Dental caries on smooth surface penetrating into dentin 10/13/2024 Fracture of lower extremity 10/13/2024 Partial loss of teeth due to caries, class I Spinal stenosis, lumbar region with neurogenic c laudication 10/13/2024 Cervicalgia 10/13/2024 Multiple pulmonary nodules 10/06/2024 Nocturnal sleep-related eating disorder 10/06/20 24 Heart failure with recovered ejection fraction ( HFrecEF) 09/28/2024 Intolerance of continuous po sitive airway pressure (CPAP) ventilation 07/02/2024 Deviated nasal septum 07/02/2024 Cigarette nicotine dependence in remission 04/14 Psychophysiological insomnia 02/11/2024 Other fatigue 02/11/2024 Forgetfulness 02/11/2024 Encephalopathy 10/15/2023 Lumbar disc disease with radiculopathy Overview (02/02/2025): LESI L5-S1 - 01/15/2024 LESI L4-5 - 04/11/24, 08/09/24, 11/26/24 LESI L4-5 - 11/26/24 80% pain relief - XR 03/2023 Lumbar spine alignment is normal. Mild multilevel lumbar degenerative disc disease. No acute compression fracture in the lumbar spine. No abnormal motion of the lumbar spine with flexion or extension. - CT 10/2023 FINDINGS: Mildly congenitally narrow spinal canal. The alignment of the lumbar spine is normal. There is no acute fracture. The vertebral bodies are normal in height without compression fractures. Schmorl nodes of T11-L3 endplates. Multilevel disc height loss. There is no soft tissue abnormality. Abdominal aorta and branches atherosclerotic calcifications. L1-L2: The disc is normal in configuration. There is mild bilateral facet arthropathy. There is no neuroforaminal stenosis. There is no spinal canal stenosis. L2-L3: The disc is normal in configuration. There is moderate bilateral facet arthropathy. There is no neuroforaminal stenosis. There is no spinal canal stenosis. L3-L4: Mild disc bulge. There is moderate bilateral facet arthropathy. There is mild bilateral neuroforaminal stenosis. There is mild spinal canal stenosis. L4-L5: Diffuse disc bulge. There is mild bilateral facet arthropathy. There is moderate left neuroforaminal stenosis. There is mild to moderate spinal canal stenosis. L5-S1: Mild disc bulge. There is moderate right and mild left facet arthropathy. There is mild left neuroforaminal stenosis. There is no spinal canal stenosis. IMPRESSION: Multilevel degenerative changes of the lumbar spine as described in detail above, greatest at L4-L5 with moderate left neuroforaminal stenosis and mild to moderate spinal canal stenosis. Assessment & Plan (04/12/2025 12:57 PM CDT): OLIMPIA today. Assessment & Plan (02/02/2025 3:12 PM CDT): Patient reports 80% pain relief, still ongoing. Plan to repeat LESI at 4 month luke as that is when his pain is generally back by. Will hold off if still improved. Order is in. Assessment & Plan (11/26/2024 5:17 PM SENIOR STATISTICAL PROGRAMMER): Given signs and symptoms of Lumbar radiculopathy we will proceed with LESI at L4-L5 today. R/B/A discussed, including but not limited to bleeding, infection, increased pain, PDPH, and possible nerve injury/paralysis. Alternatives (risks) include: medication managment (dependency), no intervention (increased pain). Patient understand risks/benefits/alternatives and agrees to proceed with injection. Assessment & Plan (10/12/2024 5:03 PM SENIOR STATISTICAL PROGRAMMER): Plan for repeat LESI in Nov. Notes >50% benefit from last LESI in Jul. Notes radicular sx remain improved but axial sx starting to return. Assessment & Plan (08/09/2024 5:34 PM CDT): Repeat L4-5 LESI today. Assessment & Plan (06/22/2024 6:49 PM CDT): Notes even better benefit from LESI at L4-5 vs L5-S1. Would like to repeat in a few weeks as it is still helping but starting to wear off a bit. Has been over 2 months since last one. Will plan for 6 weeks so that will be the 4 month luke. Discussed risks of steroid exposure given multiple epidural sites. Assessment & Plan (04/21/2024 3:18 PM CDT): Repeat LESI today. Based on imaging and distribution of sxs, will target L4-5, follow-up in 3 months or PRN. Assessment & Plan (02/24/2024 1:23 PM CDT): Improved - plan for repeat LESI PRN Assessment & Plan (12/26/2023 3:01 PM SENIOR STATISTICAL PROGRAMMER): Plan for LESI given stenosis and numbness in the legs. 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 Will proceed with CT lumbar spine. Reports unable to have MRI due to device. Assessment & Plan (09/12/2023 3:31 PM CDT): Refer to PT. Consider CT Myalgia of muscle of neck 08/21/2023 Assessment & Plan (10/21/2023 1:50 PM SENIOR STATISTICAL PROGRAMMER): TPI helped spasm. Assessment & Plan (09/12/2023 3:31 PM CDT): TPI today. Repeat PRN. If no improvement consider ultrasound of area. Assessment & Plan (08/21/2023 11:47 AM CDT): Has some spasm of the left trap. Refer to PT. Change muscle relaxant. Stop zanaflex and trial robaxin. Discussed tapering off zanaflex every 5 days. As he reduces by one tizanidine can add a baclofen 5mg up to TID prn. Ordered TPI. Does have hx of seizure but reports it was one time - would still like to trial baclofen. Moderate episode of recurrent major depressive d isorder 07/12/2023 Unsteady gait 07/12/2023 Cervical spondylosis with radiculopathy 05/28/20 23 Overview (11/25/2024): Following with NSGY - LEO C7-T1 07/16/23 - 50% benefit radicular sx, some worsening of axial pain LEO 11/06/23, 02/24/24, 06/22/24, 10/12/24 - notes >50% benefit - EMG 04/2023 EMG shows active right C7 nerve root irritation and right median nerve entrapment. - CT 01/2023 FINDINGS: There is straightening and reversal of normal cervical lordosis that is stable compared with prior CT dated 09/29/2014. There is no subluxation. No fracture or acute osseous abnormality is identified. There is partial calcification of the C4-C5 intervertebral disc posteriorly that is unchanged. There is a small disc osteophyte anteriorly at C5-C6. There are no acute findings in the prevertebral and posterior paraspinal soft tissues. There are small calcifications in the subcutaneous posterior paraspinal soft tissues at multiple levels. There are no acute findings in the soft tissues of the neck. There are no acute findings in the visualized posterior fossa. There may be an arachnoid cyst that is unchanged. The visualized lung apices are clear. Evaluation of individual intervertebral levels is as follows: C2-C3: Small disc bulge without stenosis. C3-C4: Mild disc bulge indents the ventral surface of the thecal sac without stenosis. C4-C5: Mild osteophytic ridging indents the ventral surface of the thecal sac. Mild central stenosis. No neural foraminal narrowing. C5-C6: Mild osteophytic ridging eccentric to the left that indents the ventral surface of the thecal sac. Mild central and minimal left neural foraminal stenosis. C6-C7: No central or neural foraminal stenosis. C7-T1: No central or neural foraminal stenosis. IMPRESSION: 1. Multilevel cervical spondylosis, similar compared prior CT cervical spine dated 09/29/2014. 2. No high-grade central or neural foraminal narrowing. Assessment & Plan (04/12/2025 1:10 PM CDT): Plan repeat LEO in 6 weeks given benefit. He has had several now with benefit. Assessment & Plan (02/02/2025 1:48 PM CDT): S/p LEO with >80% pain relief in the past. Pain has returned and the patient is here for LEO. We will proceed with LEO Today. Assessment & Plan (11/26/2024 5:18 PM SENIOR STATISTICAL PROGRAMMER): S/p LEO with >80% pain relief and still ongoing. The pain is slowly coming back. Might consider to repeat the injection in 6-8 weeks. Assessment & Plan (10/12/2024 5:04 PM SENIOR STATISTICAL PROGRAMMER): Proceed with repeat LEO today. Assessment & Plan (08/09/2024 5:34 PM CDT): Consider repeat SARAH. Continue baclofen prn Assessment & Plan (06/22/2024 6:49 PM CDT): Proceed with SARAH today given prior benefit. Assessment & Plan (04/21/2024 3:16 PM CDT): Continue to monitor symptom progression. Anticipate return to clinic in 2-3 months for repeat LEO. Discussed the need to proceed with caution re: cumulative steroid exposure. Assessment & Plan (02/24/2024 1:07 PM CDT): Plan for repeat SARAH today. Assessment & Plan (12/26/2023 3:01 PM SENIOR STATISTICAL PROGRAMMER): Repeat SARAH prn. Assessment & Plan (10/21/2023 1:51 PM SENIOR STATISTICAL PROGRAMMER): Feels RUE sx are starting to return. Will repeat SARAH. 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 Assessment & Plan (09/12/2023 3:31 PM CDT): Still with benefit from SARAH but does note wearing off a bit Assessment & Plan (08/21/2023 11:41 AM CDT): SARAH seems to have improved radicular sx but now has some irritation of left trap. Will do TPI/PT for this. COntinue cymbalta. Of note he was also started on Trintillex by another provider since KARAN. Lowest dose - discussed need to exercise caution with multiple serotonergic medications. Discussed signs/sx of serotonin syndrome. Assessment & Plan (07/16/2023 3:14 PM CDT): Reviewed myelogram and EMG. Given sx and EMG reasonable to consider SARAH. Discussed LEO today. He would like to proceed. Performed today. Assessment & Plan (05/28/2023 10:47 AM CDT): [facility] Tinels. Will plan for SARAH in 4 weeks. 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 He plans to have MRI or CT [place] by then. Discussed making sure he has report/disc with him so I can review before injection. Add duloxetine. Achilles tendon pain 04/04/2023 04/04/2023 Disorder of brain 04/04/2023 04/04/2023 Foot fracture, right 04/04/2023 04/04/2023 Fracture of cervical vertebra 04/04/2023 Frontotemporal dementia 04/04/2023 04/04/20 23 Impairment of balance 04/04/2023 04/04/2023 Polycythemia due to high altitude 04/04/2023 04/04/2023 Polycythemia, secondary 04/04/2023 04/04/20 23 Overview (04/04/2023): secondary to altitude Paroxysmal atrial flutter 04/04/20232022 NSVT (nonsustained ventricular tachycardia) 03/2404/04/2023 Word finding difficulty 04/04/2023 04/04/20 23 Dementia 03/20/2023 Idiopathic polyneuropathy 10/29/2022 Atrial fibrillation 03/22/2022 TBI (traumatic brain injury) 01/19/2021 BMI 32.0-32.9,adult 06/11/2020 Assessment & Plan (10/15/2020 8:02 PM SENIOR STATISTICAL PROGRAMMER): BMI Follow-up includes: continue exercise as tolerated and watch diet. Assessment & Plan (06/11/2020 12:20 PM CDT): BMI Follow-up includes: continue exercise as tolerated and watch diet. 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 Continue memantine Start donepezil (will resubmit prescription) He will call when he needs updated PT/OT referrals Assessment & Plan (10/23/2021 10:26 AM SENIOR STATISTICAL PROGRAMMER): Suspected CTE in the setting of repetitive -related TBIs Continue memantine Start donepezil Referral to PT for gait/balance impairment and BEATER ENGINEER for cognitive impairment at [facility] Assessment & Plan (07/19/2021 12:47 PM CDT): Acute progressive worsening in the setting of frequent recent concussions due to dizziness Will pursue admission to [facility] for acute rehabilitation Will reach out to Dr. Villatoro (Cardiology) about starting memantine We will look into hyperbaric oxygen therapy Discussed Brain for cognitive exercise Consider donepezil, dextroamphetamine-methamphetamine Assessment & Plan (01/19/2021 3:10 PM SENIOR STATISTICAL PROGRAMMER): 1. Need to obtain Neuropsych testing done at the [place] last week (01/09) 2. I'll refer to TBI clinic for continuity of care for TBI, CTE, CBT, gait/ balance issues. 3. Already referred to Sleep Medicine for EMILIA. 4. Minimize centrally acting meds as able: Tramadol currently 50 every other day, Trazodone 100 and Valium 10mg x2 each night. Wellbutrin 100 BID. 5. Can consider BEATER ENGINEER for word finding difficulties down the line. 6. Can consider NSGY eval for cerebellar cyst and its possible contribution to gait/ balance issues down the line. Change in bowel habits 04/20/2020 Assessment & Plan (04/20/2020 4:32 PM CDT): Will plan on endoscopy colonoscopy celiac profile, stool testing for Giardia Cryptosporidium, parasites, rule out malabsorption as well, check pancreatic elastase. . Gastric varices 02/01/2020 Overview (02/24/2020): Added automatically from request for surgery [id number] Assessment & Plan (04/20/2020 4:33 PM CDT): Patient has no history that he knows of of abdominal trauma. There is also no pancreatic mass seen on CT scan and no evidence of cirrhosis on CT scan. Will 1st evaluate by endoscopy and colonoscopy then will consider further evaluation by endoscopic ultrasound Weight loss 01/31/2020 Overview (01/31/2020): Added automatically from request for surgery [id number] Assessment & Plan (04/20/2020 4:31 PM CDT): This weight loss has been associated with more frequent stools and also associated with the finding of isolated gastric varices. There is no evidence of cirrhosis or any pancreatic mass on CT scan. Will begin with endoscopy and colonoscopy. Rule out malignancy, malabsorption, or other causes. 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 Villatoro Coronary artery disease invo lving gila river coronary artery of [place] heart without angina pectoris 08/09/2019 Overview (08/09/2019): Cardiac catheterization 02/19/2018 showed left ventricular ejection fraction 30% with 50% proximal LAD and 30% dominant circumflex as reported by Dr. Rishi Villatoro Paroxysmal atrial tachycardia 08/09/2019 Overview (08/09/2019): by pacemaker interrogation on 06/09/[address] Villatoro Neuropathy 03/08/2019 Neck pain 03/08/2019 Idiopathic peripheral neuropathy 12/10/2018 Overview (10/13/2024): 12/10/2018 - SILVANA BERNARDO
per non[facility] provider, Edin Huddleston DPM. Other male erectile dysfunction 10/31/2018 Gastroesophageal reflux disease without esophagi tis 10/26/2018 Pacemaker 04/18/2018 EMILIA (obstructive sleep apnea) 04/18/2018 BMI 34.0-34.9,adult 04/18/2018 Assessment & Plan (04/18/2018 1:43 PM CDT): BMI Follow-up includes: nutrition counseling and exercise counseling. Cardiac pacemaker in situ 01/21/2017 Overview (10/13/2024): 02/15/2021 - SELENE CRISOSTOMO B
av block Flat foot 04/01/2016 Dizziness and giddiness 04/09/2014 Overview (02/28/2017): Dizziness Assessment & Plan (07/19/2021 12:49 PM CDT): Somewhat poorly characterized with features suggestive of vertigo. Vestibular migraine? Other neuro-otologic syndrome? Referral to Neuro-Otology Consider vestibular therapy Anemia 04/09/2014 Overview (02/28/2017): Anemia Tinnitus 07/22/2013 Overview (02/27/2017): Tinnitus Posttraumatic stress disorder 07/22/2013 Overview (02/27/2017): PTSD (post-traumatic stress disorder) Mixed hyperlipidemia 12/29/2012 Overview (02/28/2017): HYPERLIPIDEMIA NEC/NOS Elevated prostate specific antigen (PSA) 012 Overview (02/28/2017): Elevated PSA Convulsions 12/11/2007 Cigarette nicotine dependence in remission 04/29 Tachycardia 04/08/2006 Migraine headache 11/21/2003 Alcohol abuse 09/27/1999 Resolved Problems Problem Noted Date Diagnosed Date Resolved Date Frontal lobe deficit 01/19/2021 021 Mild cognitive impairment 12/22/2020 Benign prostatic hyperplasia with nocturia 10/15/2020 10/29/2022 BMI 33.0-33.9,adult 02/05/2020 06/26/20 22 Overview (02/05/2020): BMI Follow-up includes: continue exercise as tolerated and watch diet. Assessment & Plan (02/05/2020 10:23 AM CDT): BMI Follow-up includes: continue exercise as tolerated and watch diet. BMI 35.0-35.9,adult 08/23/2018 06/26/20 22 Assessment & Plan (08/08/2019 9:08 AM CDT): BMI Follow-up includes: continue exercise as tolerated and watch diet. Assessment & Plan (03/08/2019 12:26 PM CDT): BMI Follow-up includes: nutrition counseling and exercise counseling. Assessment & Plan (10/31/2018 7:30 PM SENIOR STATISTICAL PROGRAMMER): BMI Follow-up includes: nutrition counseling and exercise counseling. Assessment & Plan (08/25/2018 9:48 PM CDT): BMI Follow-up includes: nutrition counseling and exercise counseling. Assessment & Plan (08/23/2018 8:51 PM CDT): BMI Follow-up includes: nutrition counseling and exercise counseling. Tinnitus of both ears 07/04/20162017 Hearing loss 07/03/2016 04/18/2018 Hypogonadism in male 07/22/2013 019 Overview (02/26/2017): Hypogonadism male Essential hypertension 07/22/201302/04 Overview (02/27/2017): HYPERTENSION NOS Hypercholesterolemia 11/19/2012 019 Overview (02/28/2017): Hypercholesteremia Immunizations Immunization Administration Dates Next Due -influenza, Quadrivalent, Split, Im 09/15/2018 H1N1 All Forms 04/30/2010 Influenza, Quadrivalent, Spl it, Intramuscular 08/04/2019 Influenza, Quadrivalent, Spl it, Preservative Free, Intramuscular 09/15/2023,09/18/2022,03/22/2022,09/14,10/10/2020,10/22/2019,08/04/2019 ,11/27/2015 Influenza, Trivalent, Cell Culture-based MDCK, Preservative Free, Antibiotic Free, Intramuscular 09/13/2018 Influenza, Trivalent, IM (MDV) 4,08/24/2013,08/28/2012,11/24 Influenza, Trivalent, Preser vative Free, Intramuscular 09/28/2024,11/27/2015 Influenza, Unspecified 09/24/2020,2017,09/10/2017,07/25,09/21/2014,08/24/2013,07/25/2013 ,08/05/2012,08/24/2011,08/24/2010,07/26,09/14/2008,09/23/2007, 7,09/08/2006,01/31/2006,11/21/2003,,08/24/1998 Moderna SARS-CoV-2 Monovalen t Vaccination (12+ YRS) 02/24/2021,01/28/2021 Pneumococcal Conjugate Pcv20 09/15/2023 Pneumococcal Polysaccharide PPV23 10/12/2020,03/2015,11/24/2009 Pneumococcal, Unspecified 12/08/2001 Td, Unspecified 01/31/2006,11/21/2003 Tdap 03/22/2014,12/29/2012,11/24/2011 ZOSTER Recombinant 06/21/2021,04/19/2021 Social History Tobacco Use Types Packs/Day Years Used Date Smoking Tobacco: Former Cigarettes 1.5 32 1 12/31/1978 - 10/30/2011 Smokeless Tobacco: Never Tobacco Cessation:Counseling Given: Not Answered Comments:2023 PACK HX /former smoker Alcohol Use Standard Drinks/Week Comments No 0 (1 standard drink = 0.6 oz pur e alcohol) AUDIT-C Answer Date Recorded Q1: How often do you have a drink containing alcohol? Never 02/02/2025 Q2: How many drinks containi ng alcohol do you have on a typical day when you are drinking? Patient does not drink Q3: How often do you have si x or more drinks on one occasion? Never 02/02/2025 PHQ-2 Answer Date Recorded PHQ-2 Total Score 6 03/08/2025 Hunger Vital Sign Answer Date Recorded Within the past 12 months, y ou worried that your food would run out before you got the money to buy more. Never true 04/21/20 24 Within the past 12 months, t he food you bought just didn't last and you didn't have money to get more. Never true 04/21/2024 PHQ-9 Answer Date Recorded PHQ-9 Total Score 20 03/08/2025 Personal Safety Answer Date Recorded Have you ever been in or are you currently in a harmful physical or emotional relationship or is someone making you feel afraid or unsafe? 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 Gender Identity Not on file Sexual Orientation Not on file Last Filed Vital Signs Vital Sign Reading Time Taken Comments Blood Pressure 154/90 04/12/2025 1:40 PM CDT Pulse 97 04/12/2025 1:40 PM CDT Temperature 36.5 C (97.7 F) 04/12/2025 12:43 PM CDT Respiratory Rate 14 04/12/2025 1:40 PM CDT Oxygen Saturation 93% 04/12/2025 1:40 PM CDT Inhaled Oxygen Concentration - - Weight 108.4 kg (239 lb) 03/30/2025 11:56 AM CDT Height 177.8 cm (5' 10 ) 03/30/2025 11:56 AM CDT Body Mass Index 34.29 03/30/2025 11:56 AM CDT Plan of Treatment Not on file Goals Goal Patient Goal Type Associated Problems Recent Progress Patient-Stated? Author CCM Chronic Pain Care Plan Chronic Care Management Improving( 12:45 PM CDT) [place], CATHY Note: Problem: Chronic Pain Goals: 1. Minimize further functional decline 2. Maximize quality of life 3. Control pain Strategies: - Activity/exercise program recommendation - Conservative stepwise pain medicine strategy with multi-disciplinary approach - Recommend healthy lifestyle strategies and compensatory methods as needed Medical Devices Implanted Type Area Market Survey Representative Device Identifier Shelf Expiration Date Model / Serial / Lot [employer] Risk Control Consultant-D Pulse Generator ([id number])-2017 Implanted: 018 by Geo Gtz MD (Quantity not on file) ICD Left: Chest [employer] [id number] / [id number] / Description:This CIED is NOT MRI Conditional, since the RA lead is from another vendor and thus is NOT tested for MR safety or FDA approved for MR scanning in any configuration. Perhaps more critically, there is an abandoned lead which is generally considered to be even higher risk of heating at the tips of the lead. This information was confirmed via the vendor's documentation and via a phone call with the vendor (07/05/2020): [email or web address]&ct=[email or web address] &qry= [email or web address]&ipp=[email or web address] Medtronic Lead (Ra)-01/28/2007 Implanted: 007 by Geo Gtz MD (Quantity not on file) Lead Heart [employer] Cardiac Rhythm Mgmt 5076 / [id number] / Description:This CIED is NOT MRI Conditional, since the RA lead is from another vendor and thus is NOT tested for MR safety or FDA approved for MR scanning in any configuration. Perhaps more critically, there is an abandoned lead which is generally considered to be even higher risk of heating at the tips of the lead. This information was confirmed via the vendor's documentation and via a phone call with the vendor (07/05/2020): [email or web address]&[email or web address]&ct=[email or web address] &qry= [email or web address]&ipp=[email or web address] [employer] Lead (Rv)-03/27/2018 Implanted: 018 by Geo Gtz MD (Quantity not on file) Lead Heart [employer] 7122Q/65 / [id number] / Description:This CIED is NOT MRI Conditional, since the RA lead is from another vendor and thus is NOT tested for MR safety or FDA approved for MR scanning in any configuration. Perhaps more critically, there is an abandoned lead which is generally considered to be even higher risk of heating at the tips of the lead. This information was confirmed via the vendor's documentation and via a phone call with the vendor (07/05/2020): [email or web address]&[email or web address]&ct=[email or web address] &qry= [email or web address]&ipp=[email or web address] [employer] Lead (Lv)-03/27/2018 Implanted: 018 by Geo Gtz MD (Quantity not on file) Lead Heart [employer] 1458Q/86 / [id number] / Description:This CIED is NOT MRI Conditional, since the RA lead is from another vendor and thus is NOT tested for MR safety or FDA approved for MR scanning in any configuration. Perhaps more critically, there is an abandoned lead which is generally considered to be even higher risk of heating at the tips of the lead. This information was confirmed via the vendor's documentation and via a phone call with the vendor (07/05/2020): [email or web address]&ct=[email or web address] &qry= [email or web address]&ipp=10 Implanted - Out of Service Type Area Market Survey Representative Device Identifier Shelf Expiration Date Model / Serial / Lot Abandoned Medtronic Rv Lead (5076-58)-01/28/2007 Implanted:01/29/20 07 (Quantity not on file) Lead Chest Medtronic Cardiac Rhythm Mgmt 5076-58 / [id number] / Description:This CIED is NOT MRI Conditional, since the RA lead is from another vendor and thus is NOT tested for MR safety or FDA approved for MR scanning in any configuration. Perhaps more critically, there is an abandoned lead which is generally considered to be even higher risk of heating at the tips of the lead. This information was confirmed via the vendor's documentation and via a phone call with the vendor (07/05/2020): [email or web address]&ct=[email or web address] &qry= [email or web address]&ipp=[email or web address] Procedures Procedure Name Priority Date/Time Associated Diagnosis Comments PAIN MGMT IMAGING LUMBAR/CAUDAL EPIDURAL STEROID INJ Schedule Routine, Read Routine (OP Routine) 04/12/2025 1:29 PM CDT Lumbar disc disease with radiculopathy EGFR Routine 03/08/2025 2:38 PM CDT Mixed hyperlipidemia Moderate episode of recurrent major depressive disorder (HCC) DIFFERENTIAL AUTO Routine 03/08/2025 2:3 8 PM CDT Moderate episode of recurrent major depressive disorder (HCC) COMPREHENSIVE METABOLIC PANEL Routine 03/08/2025 2:38 PM CDT Mixed hyperlipidemia Moderate episode of recurrent major depressive disorder (HCC) CBC WITH AUTO DIFFERENTIAL Routine 03/08/2025 2:38 PM CDT Moderate episode of recurrent major depressive disorder (HCC) THYROID FUNCTION CASCADE Routine 03/08/2025 2:38 PM CDT Moderate episode of recurrent major depressive disorder (HCC) PAIN MGMT IMAGING CERVICAL/THORACIC EPIDURAL STEROID INJ Schedule Routine, Read Routine (OP Routine) 02/02/2025 2:49 PM CDT Cervical spondylosis with radiculopathy PSA SCREEN Routine 09/28/2024 2:12 PM SENIOR STATISTICAL PROGRAMMER Prostate cancer screening CT LUNG CANCER SCREENING Schedule Routine, Read Routine (OP Routine) 09/28/2024 11:25 AM SENIOR STATISTICAL PROGRAMMER Personal history of nicotine dependence COLONOSCOPY 05/03/2020 2:05 PM CDT HEPATITIS PANEL, ACUTE Routine 04/26/2020 1:20 PM CDT Weight loss Diarrhea, unspecified type Gastric varices from Last 3 Months or Most Recently Relevant to Health Maintenance Results * Imaging Lumbar/Caudal Epidural Steroid INJ (84250) (04/12/2025 1:29 PM CDT) Narrative [facility] - 04/12/2025 1:29 PM CDT The images from this study are not interpreted by Radiology. Please refer to the physician's procedure / OR operative note. us Ozzy Joyner MD IMG PAIN MGMT PROCEDURE S Final Result Performing Organization Address City/[facility]/ZIP Co de Phone Number [facility] * eGFR (03/08/2025 2:38 PM CDT) eGFR >90 >=60 mL/min/1. 73 m2 Comment: Interpretive Data Reference Interval Normal >/= 90 mL/min/1.73m2 Mildly decreased* 60 - 89 mL/min/1.73m2 Mildly to moderately decreased 45 - 59 mL/min/1.73m2 Moderately to severely decreased 30 - 44 mL/min/1.73m2 Severely decreased 15 - 29 mL/min/1.73m2 Kidney Failure < 15 mL/min/1.73m2 *Relative to young adult level Estimated glomerular filtration rate is determined by the 2020 CKD-EPI equation recommended by the National Kidney Foundation (A Unifying Approach to GFR Estimation: Recommendations of the NKF-ASK Task Force on Reassessing the Inclusion of Race in Diagnosing Kidney Disease, JASN 2020). The CKD-EPI equation should not be used for patients with unstable renal function and has not been validated in children and those over 70. Current interpretive data was last reviewed 2021. Blood 03/08/2025 2:38 PM CDT 03/08/2025 3:38 PM CDT us Ta Norman MD LAB BLOOD ORDERABLES Final Res ult Performing Organization Address City/[facility]/ZIP Co de Phone Number [facility] [address] Department [place] [address] * Differential, auto (03/08/2025 2:38 PM CDT) Neutrophil abs 5.06 1.50 - 6.50 K/cumm Imm gran abs 0.06 0.00 - 0.10 K/cumm [facility] Lymphocyte abs 1.80 0.80 - 3.30 K/cumm [facility] Monocyte abs 0.62 0.20 - 0.80 K/cumm [facility] Eosinophil abs 0.14 0.00 - 0.50 K/cumm [facility] Basophil abs 0.03 0.00 - 0.10 K/cumm [facility] Neutrophil pct 65.7 % [facility] Comment: Interpretive Data Percent cell count reference ranges are not reported, since discordance with absolute values may lead to misinterpretation of CBC data. Current Interpretive Data was last revised on 2018. Imm gran pct 0.8 % [facility] Comment: Interpretive Data Percent cell count reference ranges are not reported, since discordance with absolute values may lead to misinterpretation of CBC data. Current Interpretive Data was last revised on 2018. Lymphocyte pct 23.3 % [facility] Comment: Interpretive Data Percent cell count reference ranges are not reported, since discordance with absolute values may lead to misinterpretation of CBC data. Current Interpretive Data was last revised on 2018. Monocyte pct 8.0 % [facility] Comment: Interpretive Data Percent cell count reference ranges are not reported, since discordance with absolute values may lead to misinterpretation of CBC data. Current Interpretive Data was last revised on 2018. Eosinophil pct 1.8 % [facility] Comment: Interpretive Data Percent cell count reference ranges are not reported, since discordance with absolute values may lead to misinterpretation of CBC data. Current Interpretive Data was last revised on 2018. Basophil pct 0.4 % [facility] Comment: Interpretive Data Percent cell count reference ranges are not reported, since discordance with absolute values may lead to misinterpretation of CBC data. Current Interpretive Data was last revised on 2018. Blood 03/08/2025 2:38 PM CDT 03/08/2025 3:39 PM CDT us Ta Norman MD LAB BLOOD ORDERABLES Final Res ult [facility] [address] Department [place] [address] * Thyroid Function [place] (03/08/2025 2:38 PM CDT) Pathologist [facility] TSH 1.92 0.30 - 4.20 mcIUnit/mL Blood 03/08/2025 2:38 PM CDT 03/08/2025 3:38 PM CDT Ta Norman MD LAB BLOOD ORDERABLES Final Res ult Performing Organization Address [facility] Co de Phone Number [facility] [address] Department [place] [address] * CBC with auto differential (03/08/2025 2:38 PM CDT) [facility] WBC 7.71 3.80 - 9.90 K/cumm Hgb 17.1 13.0 - 17.5 g/dL [facility] Hct 49.5 38.9 - 50.3 % [facility] Plt 288 150 - 400 K/cumm [facility] MPV 9.4 9.1 - 12.3 fL [facility] RBC 5.39 4.30 - 5.80 M/cumm [facility] MCV 91.8 81.3 - 96.4 fL [facility] MCH 31.7 27.1 - 33.3 pg [facility] MCHC 34.5 32.3 - 35.7 g/dL [facility] RDW CV 12.0 11.1 - 14.9 % [facility] RDW SD 39.9 35.7 - 48.1 fL [facility] NRBC abs 0.00 0.00 - 0.01 K/cumm [facility] Blood 03/08/2025 2:38 PM CDT 03/08/2025 3:39 PM CDT Ta Norman MD LAB BLOOD ORDERABLES Final Res ult Performing Organization Address [facility]/ZIP Co de Phone Number [facility] [address] Department [place] [address] * Comprehensive metabolic panel (03/08/2025 2:38 PM CDT) Sodium 140 135 - 145 mmol/L Potassium, pl 4.5 3.3 - 4.9 mmol/L [facility] Chloride 103 97 - 110 mmol/L [facility] CO2 27 22 - 32 mmol/L [facility] Anion gap 10 2 - 15 mmol/L [facility] BUN 11 6 - 25 mg/dL [facility] Creatinine 0.84 0.80 - 1.30 mg/dL [facility] Glucose 83 70 - 199 mg/dL [facility] Comment: Interpretive Data Fasting glucose >/= 126 mg/dl is diagnostic for diabetes. Fasting is defined as no caloric intake for at least 8 hours. Fasting glucose between 100 mg/dl to 125 mg/dl is diagnostic of prediabetes. In a patient with classic symptoms of hyperglycemia or hyperglycemic crisis, a random glucose >/= 200 mg/dl is diagnostic for diabetes. In the absence of unequivocal hyperglycemia, results should be confirmed by repeat testing. The classification and Diagnosis of Diabetes Diabetes Care 2021; 46: S19-S40. Current interpretive data was last revised 2022. Calcium 9.1 8.5 - 10.3 mg/dL [facility] Bilirubin, total 0.6 0.1 - 1.2 mg/dL [facility] Protein, pl 6.7 6.5 - 8.5 g/dL [facility] Albumin 4.0 3.5 - 5.0 g/dL [facility] Alk phos 67 40 - 130 Units/L [facility] ALT 34 7 - 55 Units/L [facility] AST 27 10 - 50 Units/L [facility] Blood 03/08/2025 2:38 PM CDT 03/08/2025 3:38 PM CDT us Ta Norman MD LAB BLOOD ORDERABLES Final Res ult [facility] [address] Department [place] [address] * Imaging Cervical/Thoracic Epidural Steroid INJ (21998) (02/02/2025 2:49 PM CDT) Narrative [facility] - 02/02/2025 2:49 PM CDT The images from this study are not interpreted by Radiology. Please refer to the physician's procedure / OR operative note. Ivan Garcia MD IMG PAIN MGMT PROCEDURES Final R esult Performing Organization Address [facility] Co de Phone Number [facility] * PSA screen (09/28/2024 2:12 PM SENIOR STATISTICAL PROGRAMMER) PSA-Total 1.98 <=5.40 ng/mL Comment: Interpretive Data AGE SEX REFERENCE INTERVAL 0 minutes-150 years Female None 0 minutes-49 years Male None 50-59 years Male 0-3.90 60-69 years Male 0-5.40 70-79 years Male 0-6.20 80-150 years Male 0-6.20 The Jeff PSA Total assay procedure was used. Results from different manufacturers or methods may not be comparable. Serial testing should be performed using the same method. Current interpretive data last revised 22. Blood 09/28/2024 2:12 PM SENIOR STATISTICAL PROGRAMMER 09/28/2024 3:27 PM SENIOR STATISTICAL PROGRAMMER Ta Norman MD LAB BLOOD ORDERABLES Final Res ult Performing Organization Address [facility] Co de Phone Number [facility] [address] Department [place] [address] * CT Lung Cancer Screening (09/28/2024 11:25 AM SENIOR STATISTICAL PROGRAMMER) Anatomical Region Laterality Modality Chest N/A Computed Tomogra phy 09/28/2024 11:4 5 AM SENIOR STATISTICAL PROGRAMMER Impressions 09/28/2024 11:45 AM SENIOR STATISTICAL PROGRAMMER 1. LungRADS Category 2 (benign) . Recommend Low dose Screening CT of chest in 12 months. LungRADS Categories: 1 - Negative (no nodules, or only benign calcified or fat-containing nodules) 2 - Benign Appearance or Behavior (nodules with very low likelihood of becoming a clinically active cancer due to size or lack of growth) 3 - Probably Benign (probably benign findings-short term follow up suggested; includes nodules with a low likelihood of becoming a clinically active cancer) 4A,4B,4X - Suspicious (category 3 or 4 nodules with findings for which additional diagnostic testing and/or tissue sampling is recommended) S - Other (clinically significant or potentially clinically significant findings (non-lung cancer) C - Prior Lung Cancer (modifier for patients with a prior diagnosis of lung cancer who return to screening) Electronically signed by: Sierra Lemons M.D. Narrative 09/28/2024 11:45 AM SENIOR STATISTICAL PROGRAMMER EXAMINATION: Lung cancer screening CT of the Chest without intravenous contrast HISTORY: Lung Cancer Screening TECHNIQUE: Low radiation dose chest protocol. No intravenous contrast. Reconstructed slice width 1.[address] Dose Index 3.46 mGy. Dose-length product 126.2 mGy-cm. COMPARISON: 09/25/2023 FINDINGS: Lung nodules or findings of lung cancer: There is no suspicious pulmonary nodule Smoking related lung disease: none Other findings: There is a left-sided pacemaker. There is coronary artery calcification. There is stable small pericardial effusion/thickening. There is a stable benign-appearing area sclerosis in posterior right 8th rib. Procedure Note Sierra Lemons MD - 09/28/2024 EXAMINATION: Lung cancer screening CT of the Chest without intravenous contrast HISTORY: Lung Cancer Screening TECHNIQUE: Low radiation dose chest protocol. No intravenous contrast. Reconstructed slice width 1.[address] Dose Index 3.46 mGy. Dose-length product 126.2 mGy-cm. COMPARISON: 09/25/2023 FINDINGS: Lung nodules or findings of lung cancer: There is no suspicious pulmonary nodule Smoking related lung disease: none Other findings: There is a left-sided pacemaker. There is coronary artery calcification. There is stable small pericardial effusion/thickening. There is a stable benign-appearing area sclerosis in posterior right 8th rib. IMPRESSION: 1. LungRADS Category 2 (benign) . Recommend Low dose Screening CT of chest in 12 months. LungRADS Categories: 1 - Negative (no nodules, or only benign calcified or fat-containing nodules) 2 - Benign Appearance or Behavior (nodules with very low likelihood of becoming a clinically active cancer due to size or lack of growth) 3 - Probably Benign (probably benign findings-short term follow up suggested; includes nodules with a low likelihood of becoming a clinically active cancer) 4A,4B,4X - Suspicious (category 3 or 4 nodules with findings for which additional diagnostic testing and/or tissue sampling is recommended) S - Other (clinically significant or potentially clinically significant findings (non-lung cancer) C - Prior Lung Cancer (modifier for patients with a prior diagnosis of lung cancer who return to screening) Electronically signed by: Sierra Lemons M.D. us Ta Norman MD IMG CT PROCEDURES Final Result * COLONOSCOPY (05/03/2020 2:05 PM CDT) Anatomical Region Laterality Modality Other Narrative Procedure Note Franc Pena MD - 05/03/2020 2:05 PM CDT ENDOSCOPY LAB Patient Name: Felix Galindo Procedure Date: 05/03/2020 2:05 PM Admit Type: Outpatient Room: [facility] Date of : 1960 Instrument Name: [id number] Gender: Male Note Status: Finalized Procedure: Colonoscopy Indications: Chronic diarrhea, Weight loss Providers: Franc Pena M.D. Referring MD: Ta Norman M.D. Medicines: Propofol per Anesthesia Complications: No immediate complications. Estimated Blood Loss: Estimated blood loss: none. Procedure: Pre-Anesthesia Assessment: - The risks and benefits of the procedure and thesedation options and risks were discussed with the patient. All questions were answered and informed consent wasobtained. The benefits, risks and alternatives of the procedureand sedation were discussed and informed consent wasobtained. All questions were answered. Please refer to the signed informed consent document in the medical record. Thescope was passed under direct vision. The Colonoscope was introduced through the anus and advanced to the the terminal ileum, with identification of the appendiceal orifice and IC valve. The colonoscopy was performed without difficulty. The patient tolerated the procedure well. The quality of the bowel preparation wasexcellent. The quality of the bowel preparation was evaluatedusing the BBPS ([place] Bowel Preparation Scale) with scoresof: Right Colon = 3 (entire mucosa seen well with noresidual staining, small fragments of stool or opaque liquid), Transverse Colon = 3 (entire mucosa seen well with no residual staining, small fragments of stool or opaque liquid) and Left Colon = 3 (entire mucosa seen wellwith no residual staining, small fragments of stool oropaque liquid). The total BBPS score equals 9. The quality ofthe bowel preparation was excellent. The bowel preparation used was polyethylene glycol (PEG). Bowel prep was administered using a split dose. Findings: Many diverticula were found in the sigmoid colon. An area of moderately congested mucosa was found in the sigmoidcolon. This was biopsied with a cold forceps for histology. The transverse colon and ascending colon appeared normal. The descending colon appeared normal. Biopsies were taken with a cold forceps for histology. Non-bleeding external and internal hemorrhoids were found during perianal exam. The hemorrhoids were large. The exam was otherwise without abnormality on direct and retroflexion views. Impression: - Diverticulosis in the sigmoid colon. - Congested mucosa in the sigmoid colon. Biopsied. - The transverse colon and ascending colon arenormal. - The descending colon is normal. Biopsied. - Non-bleeding external and internal hemorrhoids. - The examination was otherwise normal on direct and retroflexion views. Recommendation: - Await pathology results. - Repeat colonoscopy in 10 years for screeningpurposes. Attending Participation: I personally performed the entire procedure. Electronically signed by Franc Pena MD Franc Pena M.D. 05/03/2020 3:10:15 PM This document was signed electronically. Number of Addenda: 0 Note Initiated On: 05/03/2020 2:05 PM Franc Pena MD ENDOSCOPY PROCEDURES Final Result * Hepatitis panel, acute (04/26/2020 1:20 PM CDT) Hep A IgM NON-REACTIVE NON-REACT GEE [facility] Comment: For additional information, please refer to [email or web address]/faq/JDV635 (This link is being provided for informational/ educational purposes only.) HepBsAg NON-REACTIVE NON-REACT GEE [facility] HBV Surface ag, confirm CANCELED [facility] Comment:Result canceled by fortunato trivedi. Hep B core IgM NON-REACTIVE NON-REACT GEE [facility] Hep C Ab NON-REACTIVE NON-REACT GEE [facility] SIGNAL TO CUT-OFF 0.00 <1.00 [facility] Comment: HCV antibody was non-reactive. There is no laboratory evidence of HCV infection. In most cases, no further action is required. However, if recent HCV exposure is suspected, a test for HCV RNA (test code 72880) is suggested. For additional information please refer to [email or web address]/ATF87j0 (This link is being provided for informational/ educational purposes only.) Blood specimen (specimen) 04/26/2020 1:20 PM CDT 04/26/2020 2:30 PM CDT Franc Pena MD LAB MICROBIOLOGY - GENERAL ORDERABLES Final Result [facility] [employer] [facility] [address] [place] [address] from Last 3 Months or Most Recently Relevant to Health Maintenance Insurance MEDICARE [employer] MEDICARE [employer] [facility] Advance Directives For more information, please contact: [phone] Documents on File Type Date Recorded 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 ADVANCE DIRECTIVE 01/19/2024 11:55 PM [facility] ORDERLY-MEDICAL * Full Code (Latest Code Status on File) Date Activated Date Inactivated Comments 05/31/2020 11:01 AM 05/31/2020 5:45 PM * Full Code Date Activated Date Inactivated Comments 05/03/2020 1:16 PM 05/03/2020 7:40 PM Care Teams General Internist And Physician Leader Relationship Specialty Start Date End Date Ta Norman MD [address] [address] PCP - General 12/29/12 Pilo Latham MD [address] [facility] [place] [address] Medical Oncologist/Project Administrative Assistant Hematology 12/31/19 Reshma Davenport MD PhD [address] [place] [place] [address] Consulting Physician Psychiatry 01/19/21 Daryn Degroot DO [address] [place] [address] Referring Physician Neurology 01/21/21 Balta Sparrow MD [address] [facility] [address] [place] [address] Referring Physician Psychiatry 01/21/21 Austyn Ngo MD [address] [facility] [address], [place] [address] Consulting Physician Otolaryngology 10/11/24
--- OUTSIDE RECORDS SUMMARY | 2025-04-12 20:52 | XMS_ITS | Clinical Summary ---
Author Organization [facility] Address [address] [place] [address] Care Team Providers Care Library Services Assistant Name Role Phone Ta Norman MD Primary Care Provider Pilo Latham MD Unavailable [phone] Reshma Davenport MD PhD Unavailable [phone] Daryn Degroot DO Unavailable [phone] Balta Sparrow MD Unavailable Austyn Ngo MD Unavailable [phone] Allergies Active Allergy Reactions Criticality Noted Date [...] nodules 10/06/2024 Nocturnal sleep-related eating disorder 10/06/20 Heart failure with recovered ejection fraction ( [...] Assessment & Plan (04/12/2025 12:57 PM CDT): LESI today. Assessment & Plan (02/02/2025 3:12 PM CDT): Patient reports 80% pain relief, still ongoing. Plan to repeat LESI at 4 month luke as that is when his pain is generally back by. Will hold off if still improved. Order is in. Assessment & Plan (11/26/2024 5:17 PM TRAFFIC ANALYSIS TECHNICIAN): Given signs and symptoms of Lumbar radiculopathy we will proceed with LESI at L4-L5 today. R/B/A discussed, including but not limited to bleeding, infection, increased pain, PDPH, and possible nerve injury/paralysis. Alternatives (risks) include: medication managment (dependency), no intervention (increased pain). Patient understand risks/benefits/alternatives and agrees to proceed with injection. Assessment & Plan (10/12/2024 5:03 PM TRAFFIC ANALYSIS TECHNICIAN): Plan for repeat LESI in Nov. Notes [...] PRN Assessment & Plan (12/26/2023 3:01 PM TRAFFIC ANALYSIS TECHNICIAN): Plan for LESI given stenosis and numbness in the legs. Assessment & Plan (10/21/2023 1:52 PM TRAFFIC ANALYSIS TECHNICIAN): Was referred to PT but he is primary rn coronary care unit for his with cancer so he is unable to commit the time to PT. Will proceed with CT lumbar spine. Reports unable to have MRI due to device. Assessment & Plan (09/12/2023 3:31 PM CDT): Refer to PT. Consider CT Myalgia of muscle of neck 08/21/2023 Assessment & Plan (10/21/2023 1:50 PM TRAFFIC ANALYSIS TECHNICIAN): TPI helped spasm. Assessment & Plan (09/12/2023 [...] gait 07/12/2023 Cervical spondylosis with radiculopathy 05/28/20 Overview (11/25/2024): Following with NSGY - LEO [...] Today. Assessment & Plan (11/26/2024 5:18 PM TRAFFIC ANALYSIS TECHNICIAN): S/p LEO with >80% pain relief and still ongoing. The pain is slowly coming back. Might consider to repeat the injection in 6-8 weeks. Assessment & Plan (10/12/2024 5:04 PM TRAFFIC ANALYSIS TECHNICIAN): Proceed with repeat LEO today. Assessment & [...] today. Assessment & Plan (12/26/2023 3:01 PM TRAFFIC ANALYSIS TECHNICIAN): Repeat SARAH prn. Assessment & Plan (10/21/2023 1:51 PM TRAFFIC ANALYSIS TECHNICIAN): Feels RUE sx are starting to return. Will repeat SARAH. Was referred to PT but he is primary rn coronary care unit for his with cancer so he is [...] plan for SARAH in 4 weeks. 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 Villatoro (Cardiology) about starting memantine We will look into hyperbaric oxygen therapy Discussed BrainHQ for cognitive exercise Consider donepezil, dextroamphetamine-methamphetamine Assessment & Plan (01/19/2021 3:10 PM TRAFFIC ANALYSIS TECHNICIAN): 1. Need to obtain Neuropsych testing done [...] night. Wellbutrin 100 BID. 5. Can consider [employer] for word finding difficulties down the line. [...] (02/24/2020): Added automatically from request for surgery [id number] Assessment & Plan (04/20/2020 4:33 PM CDT): Patient has no history that he knows of of abdominal trauma. There is also no pancreatic mass seen on CT scan and no evidence of cirrhosis on CT scan. Will 1st evaluate by endoscopy and colonoscopy then will consider further evaluation by endoscopic ultrasound Weight loss 01/31/2020 Overview (01/31/2020): Added automatically from request for surgery [id number] Assessment & Plan (04/20/2020 4:31 PM CDT): This weight loss has been associated with more frequent stools and also associated with the finding of isolated gastric varices. There is no evidence of cirrhosis or any pancreatic mass on CT scan. Will begin with endoscopy and colonoscopy. Rule out malignancy, malabsorption, or other causes. 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 Rishi Villatoro ICD (implantable cardioverter-defibrillator) in place 08/09/2019 Overview (08/09/2019): [facility] placed on 03/27/2018 Nonischemic cardiomyopathy 08/09/2019 Overview (08/09/2019): Left ventricular ejection fraction 35% by echo on 03/05/[address] Villatoro Coronary artery disease invo lving [place] coronary artery of [place] heart without angina pectoris 08/09/2019 Overview (08/09/2019): [...] 01/21/2017 Overview (10/13/2024): 02/15/2021 - SELENE CRISOSTOMO
av block Flat foot 04/01/2016 Dizziness and [...] counseling. Assessment & Plan (10/31/2018 7:30 PM TRAFFIC ANALYSIS TECHNICIAN): BMI Follow-up includes: nutrition counseling and exercise [...] NOS Hypercholesterolemia 11/19/2012 019 Overview (02/28/2017): Hypercholesteremia Encounters Date Type Department Care Team Description 04/12/2025 12:31 PM CDT Hospital Encounter [facility] at the [address] [place] [address] Ozzy Joyner MD Cervical spondylosis with radiculopathy (Primary Dx); Lumbar disc disease with radiculopathy 04/11/2025 Telephone [facility] the [facility] Medicine [address] [place] [address] [place] [address] [phone] 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, sequela; Psychophysiological insomnia; Multiple pulmonary nodules; Nocturnal sleep-related eating disorder; Other fatigue; BMI 34.0-34.9,adult 03/30/2025 Orders Only [facility] Pulmonary [address] [place] [phone] Amisha Robin MD EMILIA (obstructive sleep apnea) (Primary Dx) 03/08/2025 2:40 PM CDT Lab [facility] [address] [facility] [address] [place] [phone] Moderate episode of recurrent major depressive disorder (HCC); Mixed hyperlipidemia 03/08/2025 2:00 PM CDT Office Visit [facility] [address] [facility] [address] [place] [phone] Ta Norman MD 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) (Primary Dx); Moderate episode of recurrent major depressive disorder (HCC); Coronary artery disease involving [place] coronary artery of [place] heart without angina pectoris; Paroxysmal atrial fibrillation (HCC); Mixed hyperlipidemia 03/08/2025 Results Follow-Up [facility] [address] [facility] [address] [place] [phone] Ta Norman MD Thyroid Function Miller, CBC with auto differential, Comprehensive metabolic panel, Additional followed-up results: 2 02/02/2025 12:30 PM CDT - 02/02/2025 11:59 PM CDT Hospital Encounter [facility] [address] [place] [address] [address] [place] [address] Ozzy Joyner MD Lumbar disc disease with radiculopathy (Primary Dx); Cervical spondylosis with radiculopathy Discharge Disposition: Discharge to home or self care 01/31/2025 Telephone [facility] Medicine [address] [place] [address] Advanced Medicine [address] [place] [address] Ozzy Joyner MD PMC Preprocedure 01/25/2025 Telephone [facility] at the [facility] [address] [place] [address] Advanced Medicine [address] [place] [address] Ozzy Joyner MD Anticoagulation from Last 3 Months Immunizations Immunization Administration Dates Next Due 29-influenza, Quadrivalent, Split, Im 09/15/2018 H1N1 All Forms [...] Unspecified 01/31/2006,11/21/2003 Tdap 03/22/2014,12/29/2012,11/24/2011 ZOSTER Recombinant 06/21/2021,04/19/2021 Surgical History Surgery Date Site/Laterality Comments CARDIAC PACEMAKER PLACEMENT 11/24/2005 - 11/23/2006 Cardiac pacemaker KNEE SURGERY 11/24/1987 - 11/23/1988 Right right knee fracture with repair ANKLE FRACTURE SURGERY Right right ankle fracture with repair FACIAL FRACTURE SURGERY 11/24/1982 - 11/23/1983 facial fracture COLONOSCOPY 03/03/2013 Hyperplastic polyp POLYPECTOMY UPPER GASTROINTESTINAL ENDOSCOPY Medical History Medical History Date Comments Depression Depression Arthritis Arthritis Insomnia insomnia Hyperlipidemia Hyperlipidemia Pneumonia 2008 pneumonia Headache, migraine Headache, moises juanis PTSD (post-traumatic stress disorder) PTSD Paroxysmal atrial fibrillation (HCC) paroxysmal atrial fibrillation; Comments: He has apparently been maintained in sinus rhythm with a beta aric since 2005. Sick sinus syndrome (HCC) Sick s inus syndrome. pacemaker. Broken ankle 1986 broken ankle Sleep apnea GERD (gastroesophageal reflux disease) Hypertension Stroke (HCC) Seizures (HCC) TIA (transient ischemic attack) CTE (chronic traumatic encephalopathy) Neck pain Glaucoma Family History Medical History Relation Name Comments Other Father allergic reacti on; Cause of : allergic reaction/anaphalaxis to fish; Cause of : anaphalaxis to fish Cancer Mother Heart disease Mother Lupus Mother Systemic lupus erythematosus; Coronary artery disease Other 1 Fami ly history of Coronary artery disease; Heart attack Other 2 Family history of Myocardial infarction; Hypertension Other 3 Family history of Hypertension; Psoriasis Sister Psoriasis; Relation Name Status Comments Father (Age 53) Mother Alive Other 1 Other 2 Other 3 Sister Social History Tobacco Use Types Packs/Day Years [...] on file Legal Sex Male 2:04 AM TRAFFIC ANALYSIS TECHNICIAN Gender Identity Not on file Sexual Orientation Not on file Obstetrics History Last Filed Vital Signs Vital Sign Reading [...] 03/30/2025 11:56 AM CDT Plan of Treatment Health Maintenance Due Date Last Done Comments DTaP/Tdap/Td Vaccine (4 - Td or Tdap) 03/22/2024 03/22/2014, 12/29/2012, 11/24/2011, Additional history exists Covid-19 Vaccine (3 - 2023-2 5 season) 2024 02/24/2021, 01/28/2021 Regular Well Visit/Exam 18-64 09/28/2025, 07/08/2023, 06/25/2022, Additional history exists Lung Cancer Screening 09/29/2025 09/28/2024 , 09/25/2023, 06/10/2022, Additional history exists Depression Screening 03/08/2026 03/08/2025, 03/08/2025, 09/28/2024, Additional history exists Prostate Cancer Screening-PSA 09/28/2026, 07/08/2023, 02/11/2022, Additional history exists Colon Cancer Screening-Colonoscopy 05/03/2030 05/03/2020, 03/03/2013 Hepatitis C Screening Completed 04/26/2020, 013 Colon Cancer Screening-CT Colonography Discontinued 05/03/2020, 03/03/2013 Colon Cancer Screening-DNA Stool Discontinued 05/03/20 20, 03/03/2013 Colon Cancer Screening-FIT Discontinued 05/03/2020, Colon Cancer Screening-Sigmoidoscopy Discontinued 05/03/2020, 03/03/2013 Zoster Vaccine Completed 06/21/2021, 04/19/2021 Pneumococcal vaccine <65 Completed 023, 10/12/2020, 03/28/2015, Additional history exists Hepatitis B Screening Completed 09/28/2024 Influenza Vaccine Completed 09/28/2024, , 09/18/2022, Additional history exists Goals Goal Patient Goal Type Associated Problems Recent Progress Patient-Stated? Author CCM Chronic Pain Care Plan Chronic Care Management Improving( 12:45 PM CDT) Tarah Mills, RN Note: Problem: Chronic Pain Goals: 1. Minimize further functional decline 2. Maximize quality of life 3. Control pain Strategies: - Activity/exercise program recommendation - Conservative stepwise pain medicine strategy with multi-disciplinary approach - Recommend healthy lifestyle strategies and compensatory methods as needed Medical Devices Implanted Type Area Filter Bed Placer Device Identifier Shelf Expiration Date Model / Serial / Lot [employer] Digger-D Pulse Generator ([id number])-2017 Implanted: 018 by Geo Gtz MD (Quantity not on file) ICD Left: Chest [facility] [id number] / [id number] / Description:This CIED is NOT MRI Conditional, [...] a phone call with the vendor (07/05/2020): [email or web address]&ct=[email or web address] &qry= [email or web address]&ipp=[email or web address] Medtronic Lead (Ra)-01/28/2007 Implanted: 007 by Geo Gtz MD (Quantity not on file) Lead Heart Medtronic Cardiac Rhythm Mgmt 5076 / [id number] / Description:This CIED is NOT MRI Conditional, [...] a phone call with the vendor (07/05/2020): [email or web address]?[email or web address]&[email or web address]&[email or web address]&ct=professional &qry= [email or web address]&ipp=[email or web address] [employer] Lead (Rv)-03/27/2018 Implanted: 018 by Geo Gtz MD (Quantity not on file) Lead Heart [facility] [employer] 7122Q/65 / [id number] / Description:This CIED is NOT MRI Conditional, [...] a phone call with the vendor (07/05/2020): [email or web address]?[email or web address]&[email or web address]&ln=EN&ct=professional &qry= [email or web address]&ipp=10 [facility] Lead (Lv)-03/27/2018 Implanted: 018 by Geo Gtz MD (Quantity not on file) Lead Heart [facility] [employer] 1458Q/86 / [id number] / Description:This CIED is NOT MRI Conditional, [...] a phone call with the vendor (07/05/2020): [email or web address]?re=[email or web address]&cc=US&ln=EN&ct=professional &qry= [email or web address]&ipp=10 Implanted - Out of Service Type Area Filter Bed Placer Device Identifier Shelf Expiration Date Model / Serial / Lot Abandoned Medtronic Rv Lead (5076-58)-01/28/2007 Implanted:01/29/20 07 (Quantity not on file) Lead Chest Medtronic Cardiac Rhythm Mgmt 5076-58 / [id number] / Description:This CIED is NOT MRI Conditional, [...] a phone call with the vendor (07/05/2020): [email or web address]&[email or web address]&ct=professional &qry= [email or web address]&ipp=[email or web address] Procedures Procedure Name Priority Date/Time Associated Diagnosis [...] radiculopathy PSA SCREEN Routine 09/28/2024 2:12 PM TRAFFIC ANALYSIS TECHNICIAN Prostate cancer screening CT LUNG CANCER SCREENING Schedule Routine, Read Routine (OP Routine) 09/28/2024 11:25 AM TRAFFIC ANALYSIS TECHNICIAN Personal history of nicotine dependence COLONOSCOPY 05/03/2020 2:05 PM CDT HEPATITIS PANEL, ACUTE Routine 04/26/2020 1:20 PM CDT Weight loss Diarrhea, unspecified type Gastric varices from Last 3 Months or Most Recently Relevant to Health Maintenance Results * Imaging Lumbar/Caudal Epidural Steroid INJ (26375) (04/12/2025 1:29 PM CDT) Narrative [facility] - 04/12/2025 1:29 PM CDT The images from this study are not interpreted by Radiology. Please refer to the physician's procedure / OR operative note. us Ozzy Joyner MD IMG PAIN MGMT PROCEDURE S Final Result [facility] * eGFR (03/08/2025 2:38 PM CDT) [...] MD LAB BLOOD ORDERABLES Final Res ult [facility] [address] Department [place] [address] * Differential, auto (03/08/2025 2:38 PM CDT) Neutrophil abs 5.06 1.50 - 6.50 K/cumm Imm gran abs 0.06 0.00 - 0.10 K/cumm [facility] Lymphocyte abs 1.80 0.80 - 3.30 K/cumm [facility] Monocyte abs 0.62 0.20 - 0.80 K/cumm [facility] Eosinophil abs 0.14 0.00 - 0.50 K/cumm [facility] Basophil abs 0.03 0.00 - 0.10 K/cumm [facility] Neutrophil pct 65.7 % [facility] Comment: Interpretive Data Percent cell count reference ranges are not reported, since discordance with absolute values may lead to misinterpretation of CBC data. Current Interpretive Data was last revised on 2018. Imm gran pct 0.8 % [facility] Comment: Interpretive Data Percent cell count reference ranges are not reported, since discordance with absolute values may lead to misinterpretation of CBC data. Current Interpretive Data was last revised on 2018. Lymphocyte pct 23.3 % [facility] Comment: Interpretive Data Percent cell count reference ranges are not reported, since discordance with absolute values may lead to misinterpretation of CBC data. Current Interpretive Data was last revised on 2018. Monocyte pct 8.0 % [facility] Comment: Interpretive Data Percent cell count reference ranges are not reported, since discordance with absolute values may lead to misinterpretation of CBC data. Current Interpretive Data was last revised on 2018. Eosinophil pct 1.8 % [facility] Comment: Interpretive Data Percent cell count reference ranges are not reported, since discordance with absolute values may lead to misinterpretation of CBC data. Current Interpretive Data was last revised on 2018. Basophil pct 0.4 % [facility] Comment: Interpretive Data Percent cell count reference ranges are not reported, since discordance with absolute values may lead to misinterpretation of CBC data. Current Interpretive Data was last revised on 2018. Blood 03/08/2025 2:38 PM CDT 03/08/2025 3:39 PM CDT Ta Norman MD LAB BLOOD ORDERABLES Final Res ult Performing Organization Address City/[facility]/ZIP Co de Phone Number [facility] [address] Department of [facility] [place], [place] [id number] * Thyroid Function Miller (03/08/2025 2:38 PM CDT) Pathologist [facility] TSH 1.92 0.30 - 4.20 mcIUnit/mL Blood 03/08/2025 2:38 PM CDT 03/08/2025 3:38 PM CDT Ta Norman MD LAB BLOOD ORDERABLES Final Res ult Performing Organization Address City/[facility] Co de Phone Number [facility] [address] Department of [facility] [place], [place] [id number] * CBC with auto differential (03/08/2025 2:38 PM CDT) [facility] WBC 7.71 3.80 - 9.90 K/cumm Hgb 17.1 13.0 - 17.5 g/dL [facility] Hct 49.5 38.9 - 50.3 % [facility] Plt 288 150 - 400 K/cumm [facility] MPV 9.4 9.1 - 12.3 fL [facility] RBC 5.39 4.30 - 5.80 M/cumm [facility] MCV 91.8 81.3 - 96.4 fL [facility] MCH 31.7 27.1 - 33.3 pg [facility] MCHC 34.5 32.3 - 35.7 g/dL [facility] RDW CV 12.0 11.1 - 14.9 % [facility] RDW SD 39.9 35.7 - 48.1 fL [facility] NRBC abs 0.00 0.00 - 0.01 K/cumm [facility] Blood 03/08/2025 2:38 PM CDT 03/08/2025 3:39 PM CDT us Ta Norman MD LAB BLOOD ORDERABLES Final Res ult [facility] [address] Department [place] [address] * Comprehensive metabolic panel (03/08/2025 2:38 PM CDT) Sodium 140 135 - 145 mmol/L Potassium, pl 4.5 3.3 - 4.9 mmol/L [facility] Chloride 103 97 - 110 mmol/L [facility] CO2 27 22 - 32 mmol/L [facility] Anion gap 10 2 - 15 mmol/L [facility] BUN 11 6 - 25 mg/dL [facility] Creatinine 0.84 0.80 - 1.30 mg/dL [facility] Glucose 83 70 - 199 mg/dL [facility] Comment: Interpretive Data Fasting [...] 2022. Calcium 9.1 8.5 - 10.3 mg/dL [facility] Bilirubin, total 0.6 0.1 - 1.2 mg/dL [facility] Protein, pl 6.7 6.5 - 8.5 g/dL [facility] Albumin 4.0 3.5 - 5.0 g/dL [facility] Alk phos 67 40 - 130 Units/L [facility] ALT 34 7 - 55 Units/L [facility] AST 27 10 - 50 Units/L [facility] Blood 03/08/2025 2:38 PM CDT 03/08/2025 3:38 PM CDT us Ta Norman MD LAB BLOOD ORDERABLES Final Res ult [facility] [address] Department [place] [address] * Imaging Cervical/Thoracic Epidural Steroid INJ (26703) (02/02/2025 2:49 PM CDT) Narrative [facility] - 02/02/2025 2:49 PM CDT The images from this study are not interpreted by Radiology. Please refer to the physician's procedure / OR operative note. Ivan Garcia MD IMG PAIN MGMT PROCEDURES Final R esult Performing Organization Address City/[facility]/ZIP Co de Phone Number [facility] * PSA screen (09/28/2024 2:12 PM TRAFFIC ANALYSIS TECHNICIAN) PSA-Total 1.98 <=5.40 ng/mL Comment: Interpretive Data [...] last revised 22. Blood 09/28/2024 2:12 PM TRAFFIC ANALYSIS TECHNICIAN 09/28/2024 3:27 PM TRAFFIC ANALYSIS TECHNICIAN us Ta Norman MD LAB BLOOD ORDERABLES Final Res ult [facility] [address] Department [place] [address] * CT Lung Cancer Screening (09/28/2024 11:25 AM TRAFFIC ANALYSIS TECHNICIAN) Anatomical Region Laterality Modality Chest N/A Computed Tomogra phy 09/28/2024 11:4 5 AM TRAFFIC ANALYSIS TECHNICIAN Impressions 09/28/2024 11:45 AM TRAFFIC ANALYSIS TECHNICIAN 1. LungRADS Category 2 (benign) . Recommend [...] Sierra Lemons M.D. Narrative 09/28/2024 11:45 AM TRAFFIC ANALYSIS TECHNICIAN EXAMINATION: Lung cancer screening CT of the [...] screening) Electronically signed by: Sierra Lemons M.D. Ta Norman MD IMG CT PROCEDURES Final Result * COLONOSCOPY (05/03/2020 2:05 PM CDT) Anatomical Region Laterality Modality Other Narrative Procedure Note Franc Pena MD - 05/03/2020 2:05 PM CDT ENDOSCOPY LAB Patient Name: Felix Galindo Procedure Date: 05/03/2020 2:05 PM Admit Type: Outpatient Room: [facility] 8 Date of : 1960 Instrument Name: [id number] Gender: Male Note Status: Finalized Procedure: Colonoscopy [...] the bowel preparation was evaluatedusing the BBPS ([place] Bowel Preparation Scale) with scoresof: Right Colon [...] 0 Note Initiated On: 05/03/2020 2:05 PM us Franc Pena MD ENDOSCOPY PROCEDURES Final Result * Hepatitis panel, acute (04/26/2020 1:20 PM CDT) Hep A IgM NON-REACTIVE NON-REACT GEE [facility] Comment: For additional information, please refer to http://education.NAVITIME [place]APAN.BorderJump/faq/DYF360 (This link is being provided for informational/ educational purposes only.) HepBsAg NON-REACTIVE NON-REACT GEE [facility] HBV Surface ag, confirm CANCELED [facility] Comment:Result canceled by fortunato martin ancillary. Hep B core IgM NON-REACTIVE NON-REACT GEE [facility] Hep C Ab NON-REACTIVE NON-REACT GEE [facility] SIGNAL TO CUT-OFF 0.00 <1.00 [facility] Comment: HCV antibody was non-reactive. There is no laboratory evidence of HCV infection. In most cases, no further action is required. However, if recent HCV exposure is suspected, a test for HCV RNA (test code 19996) is suggested. For additional information please refer to http://education.ZALP/faq/CRW88c5 (This link is being provided for informational/ educational purposes only.) Blood specimen (specimen) 04/26/2020 1:20 PM CDT 04/26/2020 2:30 PM CDT Franc Pena MD LAB MICROBIOLOGY - GENERAL ORDERABLES Final Result [facility] [address] [place] [address] from Last 3 Months or Most Recently Relevant to [place] [address] MEDICARE [employer] INSURANCE [employer] MEDICARE [employer] [facility] Advance Directives For more information, please contact: [phone] Documents on File Type Date Recorded Patient Tick Inspector Expl anation ADVANCE DIRECTIVE 01/19/2024 11:55 PM 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 * Full Code (Latest Code Status on File) Date Activated Date Inactivated Comments 05/31/2020 11:01 AM 05/31/2020 5:45 PM * Full Code Date Activated Date Inactivated Comments 05/03/2020 1:16 PM 05/03/2020 7:40 PM Care Teams Library Services Assistant Relationship Specialty Start Date End Date Ta Norman MD [address] [facility] [address] [place] [address] PCP - General 12/29/12 Pilo Latham MD [address] [facility] [place] [address] Medical Oncologist/Urinalysis Technician Hematology 12/31/19 Reshma Davenport MD PhD [address] [facility] [place] [address] Consulting Physician Psychiatry 01/19/21 Daryn Degroot DO [address] [place] [address] Referring Physician Neurology 01/21/21 Balta Sparrow MD [address] [facility] [address] [place] [address] Referring Physician Psychiatry 01/21/21 Austyn Ngo MD [address] [facility] [address] [place] [address] Consulting Physician Otolaryngology 10/11/24
--- OUTSIDE RECORDS SUMMARY | 2025-04-12 20:52 | XMS_ITS | Encounter Summary ---
Author Organization [facility] Healthcare Address [address] [place] [address] Care Team Providers Care Government Contracts Manager Name Role Phone Ta Norman MD Primary Care Provider [phone] Pilo Latham MD Unavailable [phone] Reshma Davenport MD PhD Unavailable [phone] Daryn Degroot DO Unavailable [phone] Balta Sparrow MD Unavailable Austyn Ngo MD Unavailable [phone] Reason for Visit * Reason Onset Date Comments [facility] Preprocedure 04/11/2025 Encounter Details Date Type Department Care Team (Late st Contact Info) Description 04/11/2025 Telephone [facility] [address] [facility] Medicine [address] [place] [address] Ozzy Joyner MD [address] [place] [address] [facility] Preprocedure Social History Tobacco Use Types Packs/Day Years Used Date Smoking Tobacco: Former Cigarettes 1.5 32 1 12/31/1978 - 10/30/2011 Smokeless Tobacco: Never Comments:2023 PACK HX / former smoker Alcohol Use [...] on file 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 Gender Identity Not on file Sexual Orientation [...] on filedocumented in this encounter Care Teams Government Contracts Manager Relationship Specialty Start Date End Date Ta Norman MD [address] [facility] [address] [place] [address] PCP - General 12/29/12 Pilo Latham MD [address] [facility] [place] [address] Medical Oncologist/Scabbler Hematology 12/31/19 Reshma Davenport MD PhD [address] [facility] [place] [address] Consulting Physician Psychiatry 01/19/21 Daryn Degroot DO [address] [place] [address] Referring Physician Neurology 01/21/21 Balta Sparrow MD [address] [facility] [address] [place] [address] Referring Physician Psychiatry 01/21/21 Austyn Ngo MD [address] [facility] [address], [place] [address] Consulting Physician Otolaryngology 10/11/24 documented as of this encounter
--- OUTSIDE RECORDS SUMMARY | 2025-04-12 20:52 | XMS_ITS | Encounter Summary ---
Author Organization [facility] Healthcare Address [facility] [place] [address] Care Team Providers Care Certified Technician Specialist Name Role Phone Ta Norman MD Primary Care Provider [phone] Pilo Latham MD Unavailable [phone] Reshma Davenport MD PhD Unavailable [phone] Daryn Degroot DO Unavailable [phone] Balta Sparrow MD Unavailable Austyn Ngo MD Unavailable [phone] Reason for Visit * Reason Onset Date Comments Imaging CD 04/23/2023 Encounter Details Date Type Department Care Team (Late st Contact Info) Description 04/23/2023 Telephone [facility] [address] [facility] Advanced Medicine [address] [place] [address] Lisa Clarke CMA Imaging CD Social History Tobacco Use Types Packs/Day Years Used Date Smoking Tobacco: Former Cigarettes 1.5 32 1 12/31/1978 - 10/30/2011 Smokeless Tobacco: Never Comments:48 PACK 2021 Alcohol Use Standard Drinks/Week Comments No 0 (1 standard drink = 0.6 oz pur e alcohol) PHQ-2 Answer Date Recorded PHQ-2 Total Score (If total score is 3 or more points, staff should administer the PHQ-9) 4 03/13/2023 Sex and Gender Information Value Date Recorded Sex Assigned at Not on file 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 Gender Identity Not on file Sexual Orientation Not on file documented as of this encounter Plan of Treatment Not on file documented as of this encounter Visit Diagnoses Not on filedocumented in this encounter Care Teams Certified Technician Specialist Relationship Specialty Start Date End Date aT Norman MD [address] [facility] [address] [place] [address] PCP - General 12/29/12 Pilo Latham MD [address] [facility] [place] [address] Medical Oncologist/Quarry Equipment Operator Hematology 12/31/19 Reshma Davenport MD PhD [address] [facility] [place] [address] Consulting Physician Psychiatry 01/19/21 Daryn Degroot DO [address] [place] [address] Referring Physician Neurology 01/21/21 Balta Sparrow MD [address] [facility] 100 [place] [address] Referring Physician Psychiatry 01/21/21 Austyn Ngo MD [address] [facility] [address] [place] [address] Consulting Physician Otolaryngology 10/11/24 documented as of this encounter
--- OUTSIDE RECORDS SUMMARY | 2025-04-12 20:52 | XMS_ITS | Data Portability ---
Author Organization MD - [facility], Main Office Address [address] [facility] [address] [place] [address] Care Team Providers Care Dairy Nutritionist Name Role Phone FRANCINE BURCIAGA Primary Care Provider Assessment No assessment recorded. Plan of Treatment Reminders Order Date Submit Date Provider Last Modified By Organization Details Last Modified Time Details Appointments None record ed. Lab None record ed. Referral None record ed. Procedures None record ed. Surgeries None record ed. Imaging None record ed. Medication Orders None record ed. Patient TargetsNo targets recorded. Patient Instructions Encounter Date Encounter Id Patient Instructions Last Modified By Organization Details Last Modified Time 05/31/2019 [id number] hemorrhoids: car e instructions Not available 05/31/2019 21:43:02 diarrhea: care instructions Not available 05/31/2019 21:43:02 Patient counsele d to F/U immediately if temp. greater than 100.4, if is unable to urinate, increased rectal pain or any other concerns. Not available 05/31/2019 21:40:37 He will follow u p in 1 - 2 weeks and I will treat his RP internal hemorrhoid. I discussed with him he will be a total of 6 treatments (as long as his symptoms get better after the first 3 treatments). On today's visit I spent a total of {{30 35 40 45* 50 55 60}} minutes [id number] with the patient and over 50% of this time was spent discussing treatment options, risks/benefits of each option and alternatives and answering his questions. Not available 05/31/2019 21:41:47 06/07/2019 [id number] Patient counsele d to F/U immediately if temp. greater than 100.4, if is unable to urinate, increased rectal pain or any other concerns. Not available 06/14/2019 11:23:38 He will follow u p in 2 - 3 weeks and I will treat his RA internal hemorrhoid. I discussed with him again that he will be a total of 6 treatment. Not available 06/14/2019 11:24:05 Reason for Referral None Reported. Problems Name Problem SNOMED Code Status Onset Date Resolution Date Notes Provider Name and Address Organization Details Recorded Time Pile easily reducible 012710191 Active 2018 Tx #1: 05/31/19 1.2 x 10 LL Tx #2: 9 1.2 x 10 RP Tx #3: 06/28/19 Tosha Scherer MD [address] [place] [address],[place] [address], [facility] [place] 9 11:24:11 External hemorrhoids 86786056 Active 2018 Tosha Scherer MD [address] [place] [address],[place] [address], [facility] 9 21:31:51 Dilated cardiomyopathy 127034993 Active 2018 Tosha Scherer MD [address] [place] [address],[address] [facility] [place] 9 21:34:15 Paroxysmal atrial fibrillation 236959192 Active 2018 Tosha Scherer MD [address] [place] [address],[place] [address]-[facility], [facility] 9 21:34:40 Loose stool 320075901 Active 2018 Tosha Scherer MD [address] [place] [address],[place] [address], [facility] 9 21:38:20 History of polyp of colon 752152588 Active 2018 Tosha Scherer MD [address] [place] [address],[address] [address], [facility] 9 21:39:33 Problem Notes None recorded. Procedures Surgical History Date Name Laterality Status Provider Name and Address Organization Details Recorded Time 06/07/20 19 IRC completed Tosha Scherer MD [address] [place] [address],[address], [place], [address], [facility] 06/14/2019 11:21:55 05/31/20 19 [place] [address] [place] [address],[address], [place], [address], [facility] 05/31/2019 21:31:01 03/03/20 13 Colonoscopy completed Tosha Scherer MD [address] [place] [address],[address], [place], [address], [facility] 05/31/2019 21:15:14 Tonsillectomy completed Ledacarlota Moya [facility] 05/31/2019 13:40:11 Cardiac Pacemaker completed [facility] 05/31/2019 13:40:17 Cardiac Defibrillator completed [facility] 05/31/2019 13:40:22 Imaging Results None recorded. Procedure Notes None recorded. Medical Equipment None Reported. Allergies Allergen ID Allergen Name Allergen Category Reaction Reaction Severity Criticality Documentation Date Start Date Code Code System Note Provider Name and Address Organization Details Recorded Time 2331 Demerol medicatio n Not available Not available Not available 05/31/2019 04210 1 RxNorm [facility] 9 13:37:39 Medications Name Sig Start Date Stop Date Status Note LastModified by Organization Details LastModified Time carvedilo l 25 mg tablet 05/31 completed Not Available Not Available Not Available carvedilo l 6.25 mg tablet 05/31 completed Not Available Not Available Not Available omeprazol e 40 mg capsule,d elayed release 05/31 completed Not Available Not Available Not Available tramadol 50 mg tablet active Not Available Not Available Not Available Lipitor 40 mg tablet active Not Available Not Available Not Available trazodone 100 mg tablet active Not Available Not Available Not Available gabapenti n 300 mg capsule 05/31 completed Not Available Not Available Not Available lisinopri l 5 mg tablet active Not Available Not Available Not Available diazepam 10 mg tablet active Not Available Not Available Not Available Adult Aspirin Regimen 81 mg tablet,de layed release Take 1 tablet every day by oral route. active 05/31/19: He is supposed to be taking this daily but admits he only takes it every 2 - 3 days because he forgets. He denies taking any other aspirin products. Not Available Not Available Not Available Vitals Date Recorded Body height Body mass index (BMI) Body weight Respiratory rate Body temperature Heart rate Systolic blood pressure Diastolic blood pressure Provider Name and Address Organization Details Last Updated DateTime 9 180.34 cm 35.1 kg/m2 916468. 28 g 12 /min 98.1 [degF] 94 /min 130 mm[Hg] 91 mm[Hg] Ledacarlota Moya [facility] Hem[facility]oid [facility] 9 13:48:31 Date Recorded Body height Provider Name an d Address Organization Details Last Updated DateTime 06/07/2019 180.34 cm [facility] [place] [facility] 06/07/2019 14:21:53 Social History Question Answer Notes LastModified by Organizat ion Details LastModified Time Tobacco Smoking Status Former Smoker Quit 2010 Marshall [facility] 05/31/2019 13:38:44 Do You Have An Advance Directive? Yes 01/30/2017 [email or web address] Information not available 09/23/2019 How Much Tobacco Do You Chew? None Information not available 05/31/2019 Tobacco Amount/Day 1 Pack Information not available 05/31/2019 Alcohol Use No Former- Quit 2000 Information not available 05/31/2019 Caffeine Use Yes Information not available 05/31/2019 Caffeine Type Coffee Information not available 05/31/2019 Caffeine Amount 2 Cups Information not available 05/31/2019 Illicit Drug Use No Former- Quit 1981 Information not available 05/31/2019 Type Of Tobacco Cigarettes Information not available 05/31/2019 What Was The Date Of Your Most Recent Tobacco Screening? 06/07/2019 Information not available 06/17/2019 How Many Years Have You Smoked Tobacco? 30 Information not available 05/31/2019 Sex: Male Functional Status None recorded. Mental Status None recorded. Family History Relationship Description Onset Age of this Age Resolved Age Notes LastModified by Organization Details LastModified Time Father No current problems or disability Not available 05/31 13:38:35 Mother No current problems or disability Not available 05/31 13:38:35 Medical History Condition Response Coronary Artery Disease Y Other N Atrial Fibrillation Y Kidney Stones N Hyperthyroidism N Hernia N Hypothyroidism Y COPD N Depression N Glaucoma N Accidental Bowel Leakage Y Headaches/Migraines Y Deep Vein Thrombosis N Anxiety Disorder Y Cardiac Dysrhythmia N MRSA/VRE Exposure N Genital Herpes N Diverticulosis N Cancer N Stroke N Head Trauma N Genital Warts N Crohn's Disease N Liver Disease/Hepatitis N HIV/AIDS N High Cholesterol Y Irritable Bowel Syndrome N Autoimmune Disease N Kidney Disease N Anemia N Celiac Disease N Arthritis/Gout N Anal/Rectal Trauma/Injury N Diabetes N Cataracts N Bleeding Disorder N Seizures/Epilepsy N Congestive Heart Failure (CHF) Y Diverticulitis N Heart Attack N Asthma N Reflux/GERD N Ulcerative Colitis N Sleep Apnea Y Mitral Valve Prolapse N Aneurysm N Heart Disease Y Pulmonary Embolism N Hypertension Y Colon/Rectal Polyps Y Immunizations Vaccine Type Date Status Note Provider Nam e and Address Organization Details Recorded Time Influenza, split virus, quadrivalent, preservative 9 completed Rosanna Ramirez [facility] [place] 09/23/2019 13:06:43 Influenza, split virus, quadrivalent, preservative 8 completed Tosha Scherer MD [address] [place] [address],[address], [place], [address], [facility] [place] 06/07/2019 14:55:57 Tdap 3 completed Tosha Scherer MD [address] [place] [address],[address], [place], [address], [facility] [place] 06/07/2019 14:56:57 pneumococcal polysaccharide PPV23 0 completed Tosha Scherer MD [address] [place] [address],[address], [place], [address], [place] [facility] 06/07/2019 14:57:52 Past Encounters Encounter ID Performer Location Encounter Start Date Encounter Closed Date Diagnosis/Indication Diagnosis SNOMED-CT Code Diagnosis ICD10 Code Diagnosis Note [id number] Tosha Scherer MD Main Office [address] [place] [address] [address] [place] [address] 05/31/2019 13:37:07 05/31/2019 14:48:33 Pile easily reducible 416327505 K64.1 Stage 2 - 3 internal hemorrhoid s: I do think he would benefit from infrared coagulatio n. Full informed consent for treatment was given including risks/bene fits and alternativ es. He wanted to proceed with treatment. His first treatment was done today on the left lateral internal hemorrhoid . External hemorrhoids 239 [address]52 K64.4 These will probably improve with IRC. He understand s the only way to directly treat external hemorrhoid s/skin tags would be with surgery and he does not wish to pursue. He understand s that the tags will not go away with IRC. He declined referral to a colon and rectal surgeon. He needs to routinely use the flushable moist wipes instead of dry rough TP. Dilated cardiomyopathy 596793015 I42.0 He has an appointmen t with his cardiologi next week. Paroxysmal atrial fibrillation 588962283 I48.0 He is controlled on medication s. He is supposed to be taking a baby aspirin daily but admits he takes it only every 2 - 3 days because he forgets (he takes all of his other medication s as directed daily). I advised that given his cardiovasc ular disease he must take the baby aspirin every day as he is at risk for embolic strokes and ID. He voiced understand ing. I did advised that this does increase the (already low) risk of bleeding from the IRC treatment. If he does get heavy bleeding, he needs to go off of the aspirin for a few days but then get back on it MYRIAM. If he has no heavy bleeding, he needs to stay on the aspirin. Loose stool 986571335 R1 9.5 He of course needs to be eating a high fiber diet and drinking plenty of water. I might consider putting him on very low dose psyllium to bulk up his BM's if this does not improve with treating his hemorrhoid s. History of polyp of colon 040940817 Z86.010 These were evidently benign and he is not due for a repeat colonoscop y until 02/2023. [id number] Tosha Scherer MD Main Office [address] [place] [address] 06/07/2019 14:21:23 06/07/2019 14:53:42 Pile easily reducible 974760939 K64.1 Stage 2 - 3 internal hemorrhoid s: He is doing fairly well with infrared coagulatio n treatment. His 2nd treatment was done today on the RP. External hemorrhoids 239 [address] K64.4 These will probably improve with IRC. He understand s the only way to directly treat external hemorrhoid s/skin tags would be with surgery and he does not wish to pursue this. He understand s that the tags will not go away with IRC. He declined referral to a colon and rectal surgeon. He needs to routinely use the flushable moist wipes instead of dry rough TP. Loose stool 618008920 R1 9.5 He of course needs to be eating a high fiber diet and drinking plenty of water. I might consider putting him on very low dose psyllium to bulk up his BM's if this does not improve with treating his hemorrhoid s. Paroxysmal atrial fibrillation 929762140 I48.0 He is controlled on medication s. He is supposed to be taking a baby aspirin daily. Health Concerns Section Related Observation LastModified by Organization Detai ls LastModified Time None Recorded Concern Status LastModified by Organization Details LastModified Time None Recorded Advance Directives Directive Y: 01/30/2017 Payers Encounter Date Sequence Insurance Name Policy Number Policy Carrion Covered Member ID Carrion Member ID Guarantor Name 05/31/2019 2 [employer] (MEDICARE SUPPLEMENT) Felix Galindo [id number] Felix Galindo 05/31/2019 1 [place] Felix Galindo [id number] Felix Galindo 06/07/2019 2 [employer] (MEDICARE SUPPLEMENT) Felix Galindo [id number] Felix Galindo 06/07/2019 1 [place] Felixzoran Galindo [id number] Felix Galnido Notes Date Note Type Note Provider Name and Address Organization Details Recorded Time 05/31/2019 text/html This is a very pleasant 58 year old man who has had symptoms from his hemorrhoids on and off for at least 20 - 25 years. These have been worsening throughout the years and are now persistent and extremely bothersome. He had a particularly bad flare last week (he admits he is better now). He presents today for an evaluation and to discuss his treatment options. Bleeding: He can have bright red blood on the wipe and heavy in the water with BM's when he is flared. This will occur with every BM for about 1 week but then resolve for a month or 2. He frequently sees bright red blood only on the wipe. He has no leakage of blood in between BM's. Pain: He can have a lot of external pain when he is flared. Mostly he has just discomfort. Itching: He gets a lot of external irritation and itching. Discharge: It is always hard to get clean after BM's because of swelling and irritation. He frequently has difficulty staying clean - he has to re-wipe throughout the day due to a mucous/stool leakage. He has never had drainage heavy enough that he has to wear a pad. Prolapse: Not that he has to manually reduce. External swelling: He always has external swelling and skin tags. These can get much larger when he is flared. Discomfort: He has the external irritation/discomfo rt/pain. He has internal symptoms of pressure, a sense of being blocked when trying to have a BM and a sense of incomplete emptying after BM's. Previous Hemorrhoid Treatment: He has used OTC hemorrhoid creams and ointments in the past but they were not helpful. He has never had any prescriptions for or procedures on his hemorrhoids. Previous Lower GI Endoscopy: He has had 2 colonoscopies. He thinks he has had small polyps. His shared records lists his last colonoscopy as being on 03/03/13 and he is not due for a repeat until 03/03/2023. Bowel Habits: He has had long standing two times daily BM's that are somewhat loose (Mccool Scale type 5 - 6) and urgent. He admits he does not consistently eat a high fiber diet and drink plenty of water. Tosha Scherer MD [facility],[address], [place], [address], [facility] [place] 05/31/2019 21:43:05 06/07/2019 text/html He had no proble m with the treatment and he states I am a little better . It is easier to get a stay clean. He has had some bright red blood on the wipe with BM's and this is unchanged from before treatment. He has some discomfort. His BM's are probably not as loose. Tosha Scherer MD [address] [facility],[address], [place], [address], [facility] [place] 06/14/2019 11:24:33
--- OUTSIDE RECORDS SUMMARY | 2025-04-12 20:52 | XMS_ITS | Encounter Summary ---
Author Organization [facility] Healthcare Address [address] [place] [address] Care Team Providers Care Grocery Clerk Marking Name Role Phone Ta Norman MD Primary Care Provider [phone] Pilo Latham MD Unavailable [phone] Reshma Davenport MD PhD Unavailable [phone] Daryn Degroot DO Unavailable [phone] Balta Sparrow MD Unavailable Austyn Ngo MD Unavailable [phone] Encounter Details Date Type Department Care Team (Late st Contact Info) Description 03/08/2025 Results Follow-Up [facility] Medicine [address] [facility] [address] [place] [address] Ta Norman MD [address] [facility] [address] [place] [address] Thyroid Function [place], CBC with auto differential, Comprehensive metabolic panel, Additional followed-up results: 2 Social History Tobacco Use Types Packs/Day Years [...] on file 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 Gender Identity Not on file Sexual Orientation [...] on filedocumented in this encounter Care Teams Grocery Clerk Marking Relationship Specialty Start Date End Date Ta Norman MD [address] [facility] [address] [place] [address] PCP - General 12/29/12 Pilo Latham MD [address] [facility] [facility] [place] [address] Medical Oncologist/Field Supervisor Hematology 12/31/19 Reshma Davenport MD PhD [address] [facility] [place] [address] Consulting Physician Psychiatry 01/19/21 Daryn Degroot DO [address] [place] [address] Referring Physician Neurology 01/21/21 Balta Sparrow MD [address] [facility] [address] [place] [address] Referring Physician Psychiatry 01/21/21 Austyn Ngo MD [address] [facility] [address], [place] [address] Consulting Physician Otolaryngology 10/11/24 documented as of this encounter
--- OUTSIDE RECORDS SUMMARY | 2025-04-12 20:52 | XMS_ITS | Encounter Summary ---
Author Organization [facility] Healthcare Address [address] [place] [address] Care Team Providers Care Ornamental Metal Worker Apprentice Name Role Phone Ta Norman MD Primary Care Provider [phone] Pilo Latham MD Unavailable [phone] Reshma Davenport MD PhD Unavailable [phone] Daryn Degroot DO Unavailable [phone] Balta Sparrow MD Unavailable Austyn Ngo MD Unavailable [phone] Reason for Visit * Reason Onset Date Comments Anticoagulation 01/25/2025 Encounter Details Date Type Department Care Team (Late st Contact Info) Description 01/25/2025 Telephone [facility] [address] [facility] Advanced Medicine [address] [place] [address] Ozzy Joyner MD [address] [facility] [address] [place] [address] Anticoagulation Social History Tobacco Use Types Packs/Day Years Used Date Smoking Tobacco: Former Cigarettes 1.5 32 1 12/31/1978 - 10/30/2011 Smokeless Tobacco: Never Comments:2023 PACK HX / former smoker Alcohol Use Standard Drinks/Week Comments No 0 (1 standard drink = 0.6 oz pur e alcohol) AUDIT-C Answer Date Recorded Q1: How often do you have a drink containing alcohol? Never 11/26/2024 Q2: How many drinks containi ng alcohol do you have on a typical day when you are drinking? Patient does not drink Q3: How often do you have si x or more drinks on one occasion? Never 11/26/2024 PHQ-2 Answer Date Recorded PHQ-2 Total Score (If total score is 3 or more points, staff should administer the PHQ-9) 3 09/28/2024 Hunger Vital Sign Answer Date Recorded Within the past 12 months, y ou worried that your food would run out before you got the money to buy more. Never true 04/21/20 24 Within the past 12 months, t he food you bought just didn't last and you didn't have money to get more. Never true 04/21/2024 PHQ-9 Answer Date Recorded PHQ-9 Total Score 13 09/28/2024 Personal Safety Answer Date Recorded Have you ever been in or are you currently in a harmful physical or emotional relationship or is someone making you feel afraid or unsafe? 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 Gender Identity Not on file Sexual Orientation [...] on filedocumented in this encounter Care Teams Ornamental Metal Worker Apprentice Relationship Specialty Start Date End Date Ta Norman MD [address] [address] PCP - General 12/29/12 Pilo Latham MD [address] [facility] [place] [address] Medical Oncologist/Boiler Shop Supervisor Hematology 12/31/19 Reshma Davenport MD PhD [address] [facility] [place] [address] Consulting Physician Psychiatry 01/19/21 Daryn Degroot DO [address] [place] [address] Referring Physician Neurology 01/21/21 Balta Sparrow MD [address] [facility] [address] [place] [address] Referring Physician Psychiatry 01/21/21 Austyn Ngo MD [address] [facility] [address], [place] [address] Consulting Physician Otolaryngology 10/11/24 documented as of this encounter
--- OUTSIDE RECORDS SUMMARY | 2025-04-12 20:52 | XMS_ITS | Encounter Summary ---
Author Organization [facility] Healthcare Address [address] [place] [address] Care Team Providers Care Underwriting Technician Name Role Phone Ta Norman MD Primary Care Provider [phone] Pilo Latham MD Unavailable [phone] Reshma Davenport MD PhD Unavailable [phone] Daryn Degroot DO Unavailable [phone] Balta Sparrow MD Unavailable Austyn Ngo MD Unavailable [phone] Reason for Referral * Diagnostic Imaging (Routine) - Pending Review Specialty Diagnoses / Procedures Referred By Contac t Referred To Contact Diagnoses Cervical spondylosis with radiculopathy Procedures Imaging Cervical/Thoracic Epidural Steroid INJ ([id number]) Ozzy Joyner MD [address] [facility] [address] [place] [address] Phone: tel: fax: [address] [phone] Referral ID Status Reason Start Date Expiration Date V isits Requested Visits Authorized [id number] Pending Review 04/12/2025 05/12/2026 1 1 * Diagnostic Imaging (Routine) - Closed Specialty Diagnoses / Procedures Referred By Contac t Referred To Contact Diagnoses Lumbar disc disease with radiculopathy Procedures Imaging Lumbar/Caudal Epidural Steroid INJ ([id number]) Ozzy Joyner MD [address] [place] [address] Phone: tel: fax: [address] [phone] Referral ID Status Reason Start Date Expiration Date Visits Re quested Visits Authorized [id number] Closed 02/02/2025 03/04/2026 1 1 Reason for Visit * Reason Comments Back Pain Bilateral lower back pain * Diagnostic Imaging (Routine) - Closed Specialty Diagnoses / Procedures Referred By Macey t Referred To Contact Diagnoses Lumbar disc disease with radiculopathy Procedures Imaging Lumbar/Caudal Epidural Steroid INJ ([id number]) Ozzy Joyner MD [address] [place] [address] Phone: tel: fax: [address] [phone] Referral ID Status Reason Start Date Expiration Date Visits Re quested Visits Authorized [id number] Closed 02/02/2025 03/04/2026 1 1 Encounter Details Date Type Department Care Team (Latest Contact Info) Description 04/12/2025 12:31 PM CDT Hospital Encounter [facility] [place] [facility] [address] [facility] [address] [place] [address] Ozzy Joyner MD [address] [place] [address] Cervical spondylosis with radiculopathy (Primary Dx); Lumbar disc disease with radiculopathy Social History Tobacco Use Types Packs/Day Years [...] on file 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 Gender Identity Not on file Sexual Orientation Not on file documented as of this encounter Last Filed Vital Signs Vital Sign Reading Time Taken Comments Blood Pressure 154/90 04/12/2025 1:40 PM CDT Pulse 97 04/12/2025 1:40 PM CDT Temperature 36.5 C (97.7 F) 04/12/2025 12:43 PM CDT Respiratory Rate 14 04/12/2025 1:40 PM CDT Oxygen Saturation 93% 04/12/2025 1:40 PM CDT Inhaled Oxygen Concentration - - Weight - - Height - - Body Mass Index - - documented in this encounter Progress Notes * Andrés Coulter MD - 04/12/2025 1:15 PM CDT Patient Name: Felix Galindo : 1960 Today's Date: 04/12/2025 PCP: Ta Norman MD Referring: Ta Norman MD Chief Complaint Patient presents with Back Pain Bilateral lower back pain HPI Felix Galindo is a 64 y.o. year old male here for follow up. His back pain with radicular symptoms that radiates into his thighs bilaterally. Patient denies anykind of new symptoms. Patient any weakness numbness bowel bladder dysfunction. Of note he is status post LEO at the C7-T1 on 02/02/2025 that provided him 80% relief but notes itis slowing starting to return. Would like to repeat in 6 weeks. Radiation to the arms - R>L to the fingers. Overall: Pain Assessment Phase of Care: Pre-Procedure Pain Assessment: 0-10 Pain Score: 5 - Moderate pain Pain Location: Back (Lumbar) Pain Orientation: Bilateral, Lower Pain Descriptors: Throbbing, Aching Pain Frequency: Constant/continuous Effect of Pain on Daily Activities: see PIPPA Pain Onset: Ongoing Clinical Progression: Gradually improving Aggravating Factors: Other (Comment) (activity) Legal Action Pending: No Patient's Stated Pain Goal: 2 Therapeutic Modalities: Medication (See MAR), Home medication, Heat applied, Cold applied, Rest Response to Therapeutic Modalties: 3 months relief with steroid injection Modified Oswestry Modified Oswestry Low Back Pain Score: 22 Percentage: 44 Pain Medications baclofen (LIORESAL) 10 mg tablet Take 0.5 tablets (5 mg total) by mouth 3 (three) times a day as needed for muscle spasms DULoxetine DR (CYMBALTA) 60 mg capsule gabapentin (NEURONTIN) 800 mg tablet Take 1 tablet (800 mg total) by mouth 3 (three) times a day traMADol (ULTRAM) 50 mg tablet as needed traZODone (DESYREL) 100 mg tablet Take 2 tablets (200 mg total) by mouth nightly Allergies Allergen Reactions Meperidine Anaphylaxis and Other (See comments) Reaction: heart stopped Quetiapine Anaphylaxis and Palpitations Reaction: heart problems, Simvastatin Muscle pain Lisinopril Cough Methadone Mental status changes Mirtazapine Other (See comments) Reaction: sedation, Niacin Flushing (skin) Pravastatin Other (See comments) unknown Past Medical History: Diagnosis Date Arthritis Arthritis Broken ankle 1986 broken ankle CTE (chronic traumatic encephalopathy) Depression Depression GERD (gastroesophageal reflux disease) Glaucoma Headache, migraine Headache, migraine Hyperlipidemia Hyperlipidemia Hypertension Insomnia insomnia Neck pain Paroxysmal atrial fibrillation (HCC) paroxysmal atrial fibrillation; Comments: He has apparently been maintained in sinus rhythm with a beta aric since 2005. Pneumonia 2007 pneumonia PTSD (post-traumatic stress disorder) PTSD Seizures (HCC) Sick sinus syndrome (HCC) Sick sinus syndrome. pacemaker. Sleep apnea Stroke (HCC) TIA (transient ischemic attack) Past Surgical History: Procedure Laterality Date ANKLE FRACTURE SURGERY Right right ankle fracture with repair CARDIAC PACEMAKER PLACEMENT 2006 Cardiac pacemaker COLONOSCOPY 03/03/2013 Hyperplastic polyp FACIAL FRACTURE SURGERY 1983 facial fracture KNEE SURGERY Right 1988 right knee fracture with repair POLYPECTOMY UPPER GASTROINTESTINAL ENDOSCOPY HOME MEDICATIONS : atorvastatin (LIPITOR) 40 mg tablet baclofen (LIORESAL) 10 mg tablet carvediloL (COREG) 25 mg tablet dextroamphetamine-amphetamine (ADDERALL) 20 mg tablet diazePAM (VALIUM) [address] (CYMBALTA) 60 mg capsule Entresto 49-51 mg tablet fluoride, sodium, 1.1 % paste gabapentin (NEURONTIN) 800 mg tablet galantamine ER (RAZADYNE ER) 8 mg 24 hr capsule memantine (NAMENDA) 10 mg tablet naloxone (NARCAN) 4 mg/actuation spray,non-aerosol rivaroxaban (XARELTO) 20 mg tablet saliva stimulant comb. no.5 (SalivaSure) lozenge sildenafiL (VIAGRA) 100 mg tablet tirzepatide, weight loss, (Zepbound) 2.5 mg/0.5 mL pen injector traMADol (ULTRAM) 50 mg tablet traZODone (DESYREL) 100 mg tablet Review of Systems Review of Systems Musculoskeletal: Positive for back pain and neck pain. Vitals: Vitals: 04/12/25 1243 BP: 140/85 Pulse: 99 Resp: 18 Temp: 97.7 ??F (36.5 ??C) SpO2: 95% There is no height or weight on file to calculate BMI. Physical Exam: CONSTITUTIONAL: General appearance normal, no acute distress EYES: EOMI RESPIRATORY: Normal effort on room air MUSCULOSKELETAL EXAMINATION: Antalgic gait. SKIN: No rash PSYCHIATRIC: AAOx3 with a full range of affect, normal behavior and no psychotic features Cervical Spine: ROM: Decreased flexion/extension/rotation. Positive facet loading. TTP: TTP posterior cervical region. Spurlings: Negative bilaterally. Strength: 5/5 BUE Sensation: Intact BUE except ulnar dist RUE Lumbar Spine: ROM: Decreased flexion/extension. TTP: TTP lumbosacral region. Strength: 5/5 BLE Sensation: Intact BLE Assessment: 1. Cervical spondylosis with radiculopathy 2. Lumbar disc disease with radiculopathy Plan: Problem List Neuro Cervical spondylosis with radiculopathy - Primary Overview Following with NSGY - LEO C7-T1 07/16/23 [...] No high-grade central or neural foraminal narrowing. Current Assessment & Plan Plan repeat LEO in 6 weeks given benefit. He has had several now with benefit. Relevant Orders Imaging Cervical/Thoracic Epidural Steroid INJ ([id number]) Lumbar disc disease with radiculopathy Overview LESI L5-S1 - 01/15/2024 LESI L4-5 - [...] and mild to moderate spinal canal stenosis. Current Assessment & Plan LESI today. Relevant Orders Imaging Lumbar/Caudal Epidural Steroid INJ ([id number]) Andrés Coulter MD Pain Fellow, Department of Anesthesiology [facility] Ozzy Joyner MD Blueprint Reproducer of Anesthesiology [facility] Cosigned by Ozzy Joyner MD at 04/12/2025 1:11 PM CDT Associated attestation - Ozzy Joyner MD - 04/12/2025 1:11 PM CDT I have seen and examined the patient on 04/12/25. I agree with the findings and plan of care as discussed with the resident/fellow. Proceed with LESI today, Plan for LEO in 6-8 weeks. documented in this encounter Miscellaneous Notes * Op Note - Ozzy Joyner MD - 04/12/2025 1:15 PM CDT Patient ID Patient Name: Felix Galindo : 1960 DOS: 04/12/2025 PCP: Ta Norman MD Assessment Encounter Diagnoses Name Primary? Lumbar disc disease with radiculopathy Cervical spondylosis with radiculopathy Yes Surgeon Attending Surgeon: Ozzy Joyner MD Surgical Assistants: None Procedures NAME OF PROCEDURE: Lumbar Epidural Steroid Injection at midline L4-5, under Fluoroscopy. PRE-PROCEDURE DIAGNOSES: M51.16 POST-PROCEDURE DIAGNOSES: Same as above INDICATION FOR PROCEDURE: Prior benefit INFORMED CONSTENT: After reviewing the procedure with the patient, informed consent to proceed withthe injection was obtained. A procedural permit was also signed. DESCRIPTION OF PROCEDURE:The patient was placed in the prone position, and fluoroscopy was used to identify the intervertebral interspace at L4-5 level. The lumbar area was prepped with Chlorhexidinesolution and draped with sterile drape (prep and drape materials from the epidural kit). Sterile technique was used throughout. At the needle entry point, the skin and subcutaneous tissues were infiltrated with 1% lidocaine. An 18-gauge Tuohy needle was advanced to the epidural space, using the loss of resistance technique to normal saline with a little air bubble. Omnipaque 300 X 0.5 ml. was injected to ensure placement in the epidural space. No paresthesias were encountered during needle placement. With the needle in the epidural space, aspiration was negative for blood or other fluid. Methylprednisolone, 80 mg., 1 ml lidocaine, 15 mg., and 1:200,000 epinephrine, 5 mcg., and saline (totalvolume 3 ml.) were injected through the Tuohy needle. The injected local anesthetic and steroid resulted in dispersion of the previously injected contrast. The procedure was well tolerated, and there were no apparent complications. Dr. Joyner was present for, and participated in, the entire procedure. DISPOSITION: Patient was discharged home in stable condition. TEACHING ATTESTATION : I was present and directly participated in the entire procedure (including opening and closing). Ozzy Joyner MD Blueprint Reproducer of Anesthesiology [facility] 04/12/2025 2:47 PM * Op Note - Ozzy Joyner MD - 04/12/2025 1:15 PM CDT Patient ID Patient Name: Felix Galindo : 1960 DOS: 04/12/2025 PCP: Ta Norman MD Assessment Encounter Diagnoses Name Primary? Lumbar disc disease with radiculopathy Cervical spondylosis with radiculopathy Yes Surgeon Attending Surgeon: Ozzy Joyner MD Surgical Assistants: None Procedures NAME OF PROCEDURE: Lumbar Epidural Steroid Injection at midline L4-5, under Fluoroscopy. PRE-PROCEDURE DIAGNOSES: M51.16 POST-PROCEDURE DIAGNOSES: Same as above INDICATION FOR PROCEDURE: Prior benefit INFORMED CONSTENT: After reviewing the procedure with the patient, informed consent to proceed withthe injection was obtained. A procedural permit was also signed. DESCRIPTION OF PROCEDURE:The patient was placed in the prone position, and fluoroscopy was used to identify the intervertebral interspace at L4-5 level. The lumbar area was prepped with Chlorhexidinesolution and draped with sterile drape (prep and drape materials from the epidural kit). Sterile technique was used throughout. At the needle entry point, the skin and subcutaneous tissues were infiltrated with 1% lidocaine. An 18-gauge Tuohy needle was advanced to the epidural space, using the loss of resistance technique to normal saline with a little air bubble. Omnipaque 300 X 0.5 ml. was injected to ensure placement in the epidural space. No paresthesias were encountered during needle placement. With the needle in the epidural space, aspiration was negative for blood or other fluid. Methylprednisolone, 80 mg., 1 ml lidocaine, 15 mg., and 1:200,000 epinephrine, 5 mcg., and saline (totalvolume 3 ml.) were injected through the Tuohy needle. The injected local anesthetic and steroid resulted in dispersion of the previously injected contrast. The procedure was well tolerated, and there were no apparent complications. Dr. Joyner was present for, and participated in, the entire procedure. DISPOSITION: Patient was discharged home in stable condition. No Resident involved on case Ozzy Joyner MD Blueprint Reproducer of Anesthesiology [facility] 04/12/2025 1:11 PM * Assessment & Plan Note - Andrés Coulter MD - 04/12/2025 12:58 PM CDT Associated Problem(s): Cervical spondylosis with radiculopathy Plan repeat LEO in 6 weeks given benefit. He has had several now with benefit. * Assessment & Plan Note - Andrés Coulter MD - 04/12/2025 12:57 PM CDT Associated Problem(s): Lumbar disc disease with radiculopathy LESI today. documented in this encounter Plan of Treatment Scheduled Orders Name Type Priority Associated Diagnoses Orde r Schedule Imaging Cervical/Thoracic Epidural Steroid INJ ([id number]) Imaging Schedule Routine, Read Routine (OP Routine) Cervical spondylosis with radiculopathy Expected: 04/12/2025, Expires: 04/12/2026 documented as of this encounter Goals Goal Patient Goal Type Associated Problems Recent Progress Patient-Stated? Author CCM Chronic Pain Care Plan Chronic Care Management Improving( 12:45 PM CDT) Tarah Mills RN Note: Problem: Chronic Pain Goals: 1. Minimize further functional decline 2. Maximize quality of life 3. Control pain Strategies: - Activity/exercise program recommendation - Conservative stepwise pain medicine strategy with multi-disciplinary approach - Recommend healthy lifestyle strategies and compensatory methods as needed documented as of this encounter Procedures Procedure Name Priority Date/Time Associated Diagnosis Comments PAIN MGMT IMAGING LUMBAR/CAUDAL EPIDURAL STEROID INJ Schedule Routine, Read Routine (OP Routine) 04/12/2025 1:29 PM CDT Lumbar disc disease with radiculopathy documented in this encounter Results * Imaging Lumbar/Caudal Epidural Steroid INJ ([id number]) (04/12/2025 1:29 PM CDT) Narrative [facility] - 04/12/2025 1:29 PM CDT The images from this study are not interpreted by Radiology. Please refer to the physician's procedure / OR operative note. us Ozzy Joyner MD IMG PAIN MGMT PROCEDURE S Final Result [facility] documented in this encounter Visit Diagnoses Diagnosis Cervical spondylosis with radiculopathy- Primary Cervical spondylosis with myelopathy Lumbar disc disease with radiculopathy documented in this encounter Administered Medications Inactive Administered Medications - up to 3 most recent administrations Medication Order MAR Action Action Date Dose Rate Site iohexoL (OMNIPAQUE) 300 mg iodine/mL injection solution As needed, Starting on 04/12/25 at 1326, Intra-Op Given 04/12/2025 1:26 PM CDT 0.5 mL lidocaine (PF) (XYLOCAINE) 10 mg/mL (1 %) preservative free injection As needed, Starting on 04/12/25 at 1326, Intra-Op Given 04/12/2025 1:26 PM CDT 5 mL lidocaine-EPINEPHrine (XYLOCAINE with EPI) 1.5 %-1:200,000 preservative free injection As needed, Starting on 04/12/25 at 1327, Intra-Op, Indications: Administration of Local AnesthesiaIndications:Administrati on of Local Anesthesia Given 04/12/2025 1:27 PM CDT 1 mL methylPREDNISolone acetate (DEPO-medrol) injection As needed, Starting on 04/12/25 at 1326, Intra-Op Given 04/12/2025 1:26 PM CDT 80 mg sodium chloride 0.9% solution As needed, Starting on 04/12/25 at 1326, Intra-Op Given 04/12/2025 1:26 PM CDT 1 mL documented in this encounter Care Teams Underwriting Technician Relationship Specialty Start Date End Date Ta Norman MD [address] [facility] [address] [place] [address] PCP - General 12/29/12 Pilo Latham MD [address] [facility] HEMATOLOG[place] [address] Medical Oncologist/Matrix Drier Tender Hematology 12/31/19 Reshma Davenport MD PhD [address] [facility] HEMATOLOG[facility] [place] [address] Consulting Physician Psychiatry 01/19/21 Daryn Degroot DO [address] [place] [address] Referring Physician Neurology 01/21/21 Balta Sparrow MD [address] [facility] [address] [place] [address] Referring Physician Psychiatry 01/21/21 Austyn Ngo MD [address] [facility] [address] [place] [address] Consulting Physician Otolaryngology 10/11/24 documented as of this encounter
--- OUTSIDE RECORDS SUMMARY | 2025-04-12 20:52 | XMS_ITS | Encounter Summary ---
Author Organization [facility] Healthcare Address [address] [place] [address] Care Team Providers Care Rolling Mill Plugger Name Role Phone Ta Norman MD Primary Care Provider [phone] Pilo Latham MD Unavailable [phone] Reshma Davenport MD PhD Unavailable +[phone] Daryn Degroot DO Unavailable +50 Balta Sparrow MD Unavailable Austyn Ngo MD Unavailable [phone] Reason for Visit * Reason Onset Date Comments Anticoagulation 06/14/2024 Encounter Details Date Type Department Care Team (Late st Contact Info) Description 06/14/2024 Telephone [facility] [address] [facility] [address] [place] [address] Ozzy Joyner MD [address] [place] [address] Anticoagulation Social History Tobacco Use Types Packs/Day Years Used Date Smoking Tobacco: Former Cigarettes 1.5 32 1 12/31/1978 - 10/30/2011 Smokeless Tobacco: Never Comments:2022 PACK HX / former smoker Alcohol Use Standard Drinks/Week Comments No 0 (1 standard drink = 0.6 oz pur e alcohol) AUDIT-C Answer Date Recorded Q1: How often do you have a drink containing alcohol? Never 04/21/2024 Q2: How many drinks containi ng alcohol do you have on a typical day when you are drinking? Patient does not drink 4 Q3: How often do you have si x or more drinks on one occasion? Never 04/21/2024 PHQ-2 Answer Date Recorded PHQ-2 Total Score [...] money to get more. 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 Gender Identity Not on file Sexual Orientation [...] on filedocumented in this encounter Care Teams Rolling Mill Plugger Relationship Specialty Start Date End Date Ta Norman MD [address] [facility] [address] [place] [address] PCP - General 12/29/12 Pilo Latham MD [address] [facility] [facility] [place] [address] Medical Oncologist/Alcohol Rubber Hematology 12/31/19 Reshma Davenport MD PhD [address] [place] [facility] [place] [address] Consulting Physician Psychiatry 01/19/21 Daryn Degroot DO [address] [place] [address] Referring Physician Neurology 01/21/21 Balta Sparrow MD [address] [facility] [address] [place] [address] Referring Physician Psychiatry 01/21/21 Austyn Ngo MD [address] [place] [facility] [address], [place] [address] Consulting Physician Otolaryngology 10/11/24 documented as of this encounter
--- OUTSIDE RECORDS SUMMARY | 2025-04-12 20:52 | XMS_ITS | Encounter Summary ---
Author Organization [facility] Healthcare Address [facility] [place] [address] Care Team Providers Care Farm Equipment Service Technician Name Role Phone Ta Norman MD Primary Care Provider [phone] Pilo Latham MD Unavailable [phone] Reshma Davenport MD PhD Unavailable +60 Daryn Degroot DO Unavailable +82 Balta Sparrow MD Unavailable Austyn Ngo MD Unavailable [phone] Encounter Details Date Type Department Care Team (Late st Contact Info) Description 06/05/2021 Telephone [facility] at [address] [id number] Anjelica Clarke RT Social History Tobacco Use Types Packs/Day Years Used Date Smoking Tobacco: Former Cigarettes 1.5 32 1 12/31/1978 - 10/30/2011 Smokeless Tobacco: Never Comments:48 pack / 2020 Alcohol Use Standard Drinks/Week Comments No 0 (1 standard drink = 0.6 oz pur e alcohol) PHQ-2 Answer Date Recorded PHQ-2 Total Score (If total score is 3 or more points, staff should administer the PHQ-9) 0 04/11/2021 Sex and Gender Information Value Date Recorded Sex Assigned at Not on file 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 Gender Identity Not on file Sexual Orientation Not on file documented as of this encounter Plan of Treatment Not on file documented as of this encounter Visit Diagnoses Not on filedocumented in this encounter Care Teams Farm Equipment Service Technician Relationship Specialty Start Date End Date Ta Norman MD [address] [facility] [address] [place] [address] PCP - General 12/29/12 Pilo Latham MD [address] [place] [facility] [place] [address] Medical Oncologist/Director For Beauty School Hematology 12/31/19 Reshma Davenport MD PhD [address] [place] [facility] [place] [address] Consulting Physician Psychiatry 01/19/21 Daryn Degroot DO [address] [place] [address] Referring Physician Neurology 01/21/21 Balta Sparrow MD [address] [facility] [address] [place] [address] Referring Physician Psychiatry 01/21/21 Austyn Ngo MD [address] [facility] [address] [place] [address] Consulting Physician Otolaryngology 10/11/24 documented as of this encounter
--- OUTSIDE RECORDS SUMMARY | 2025-04-12 20:52 | XMS_ITS | Clinical Summary ---
Author Organization [facility] Address [address] [place] [address] Care Team Providers Care Elevator Technician Name Role Phone Ta Norman MD Primary Care Provider [phone] Allergies Active Allergy Reactions Criticality Noted Date Comments Meperidine Unknown 08/14/2010 Methadone Unknown 08/14/2010 Shellfish Containing Products Unknown 2009 Medications Aspirin, Buffered 81 mg Oral Tab Take by mouth daily. Active hydrOXYzine pamoate (VISTARIL) 50 mg capsule Take 50 mg by mouth daily at bedtime. Active traZODone (DESYREL) 100 mg tablet Take 100 mg by mouth daily at bedtime. Active atorvastatin (LIPITOR) 20 mg tablet Take 20 mg by mouth late in the day. Active diazePAM (VALIUM) 10 mg tablet Take 10 mg by mouth every 6 hours as needed for Anxiety. Active Active Problems Patient Care Coordination No te Formatting of this note migh t be different from the original. Apple Peeler Operator - Dr Rishi Villatoro Alarm Signal Operator- Dr Geo Gtz Problem Noted Date Diagnosed Date Memory loss 05/07/2017 Mild cognitive impairment, so stated 01/30/2017 Obesity, unspecified 11/06/2012 Erectile dysfunction Hyperlipidemia Closed fracture of cervical spine Chronic neck pain Tendonitis, Achilles Leg fracture Overview (08/14/2010): Right leg Sinus tachycardia Post-traumatic stress syndrome Polycythemia, secondary Overview (08/14/2010): secondary to altitude Seizure disorder Overview (08/14/2010): (petite mal Paroxysmal atrial fibrillation Overview (08/14/2010): maintained on aspirin and a beta aric, with no recent episodes Coronary atherosclerosis of [place] coronary melissa ry Overview (06/02/2013): Mild by cardiac catheterization 12/06/10 (40% coronary lesion, left ventricular ejection fraction 50-55%). Nuclear medicine stress test 12/14/12: 9:31, 10.1 METS, clinically negative, ECG uninterpretable (paced), no ischemia or infarction, LVEF 43%. Pacemaker Overview (03/02/2014): Medtronic Pacemaker - Versa [id number] SN: [id number] - Implanted 02/08/2014 RA: MEDT 5076 SN: [id number] (Implanted 01/28/2007) RV: MEDT 5076 SN: [id number] (Implanted 01/28/2007) Resolved Problems Problem Noted Date Diagnosed Date Resolved Date Presence of permanent cardiac pacemaker 09/06/2011 12/13/2011 Immunizations Immunization Administration Dates Next Due Influenza Seasonal Unspecified Formulation IM Family History Medical History Relation Name Comments SLE Mother Relation Name Status Comments Father (Age 53) father d due to complications of hepatitis Mother Alive has systemic madhavi pus erythathematosis Other half sister Alive no known heart disease Social History Tobacco Use Types Packs/Day Years Used Date Smoking Tobacco: Former Cigarettes 1 24 0 11/24/1982 - 11/24/2006 Smokeless Tobacco: Never Comments:smoked from 1982- 07 Alcohol Use Standard Drinks/Week Comments No 0 (1 standard drink = 0.6 oz pur e alcohol) Sex and Gender Information Value Date Recorded Sex Assigned at Not on file 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 Gender Identity Not on file Sexual Orientation Not on file Occupation Industry Job Start Date Job End Date Not on file Not on file Not on file Not on file Last Filed Vital Signs Vital Sign Reading Time Taken Comments Blood Pressure 118/76 05/05/2018 10:28 AM CDT Pulse 78 05/05/2018 10:28 AM CDT Temperature 36.2 C (97.2 F) 02/08/2014 10:00 AM CDT Respiratory Rate 12 06/13/2014 10:32 AM CDT Oxygen Saturation 95% 05/05/2018 10:28 AM CDT Inhaled Oxygen Concentration - - Weight 111.1 kg (245 lb) 05/05/2018 10:28 AM CDT Height 180.3 cm (5' 11 ) 05/05/2018 10:28 AM CDT Body Mass Index 34.17 05/05/2018 10:28 AM CDT Plan of Treatment Health Maintenance Due Date Last Done Comments FIT-DNA Q 3 years 2007 FIT/FOBT Q 1 year 2007 Flex Sig/CT Colonography Q 5 years 2007 Pre-Diabetes and Diabetes Screening 05/07/2020 05/07/2017 RSV VACCINE (60+ or ) (1 - Risk 60-74 years 1-dose series) 2022 DTAP/TDAP/TD VACCINES (4 - T d or Tdap) 03/22/2024 03/22/2014, 12/29/2012, 11/24/2011, Additional history exists COVID-19 Vaccine (3 - 2023-2 5 season) 2024 02/24/2021, 01/28/2021 COLORECTAL SCREENING 05/03/2030 05/03/2020, 05/03/20 20 Colorectal Cancer Screening 05/03/2030 ZOSTER VACCINE Completed 06/21/2021, 04/19/2021 INFLUENZA VACCINE Completed 09/28/2024, , 09/18/2022, Additional history exists Procedures Procedure Name Priority Date/Time Associated Diagnosis Comments HEMOGLOBIN A1C Routine 05/07/2017 11:52 AM CDT Glucose intolerance (impaired glucose tolerance) from Last 3 Months or Most Recently Relevant to Health Maintenance Results * HEMOGLOBIN A1C (05/07/2017 11:52 AM CDT) HEMOGLOBIN A1C 5.4 4.0 - 6.0 % 05/07/2017 1:19 PM CDT [facility] [email or web address] [facility] Comment:Note: Effective as o f 12/15/2015 a new methodology, Turbidimetric inhibition immunoassay (TINIA),has been implemented. EST. AVG GLUCOSE, A1C 108 mg/dL 05/07/2017 1:19 PM CDT [facility] Blood Venipuncture / Unknown 05/07/2017 11:52 AM CDT 05/07/2017 12:16 PM CDT Kaitlynn Kessler MD CHEMISTRY ORDERABLES Ryann cole Result [facility] CLIA# [id number] [address] [place] [id number] from Last 3 Months or Most Recently Relevant to Health [place] [address] MEDICARE PART A AND B [employer] SUPP Advance Directives For more information, please contact: [phone] * Full Code (Latest Code Status on File) Date Activated Date Inactivated Comments 02/08/2014 9:47 AM 02/08/2014 6:12 PM Care Teams Elevator Technician Relationship Specialty Start Date End Date Ta Norman MD PCP - General 11/14/15
--- OUTSIDE RECORDS SUMMARY | 2025-04-12 20:52 | XMS_ITS | Encounter Summary ---
Author Organization [facility] Healthcare Address [address] [facility] [place] [address] Care Team Providers Care Dining Room Captain Name Role Phone Ta Norman MD Primary Care Provider [phone] Pilo Latham MD Unavailable [phone] Reshma Davenport MD PhD Unavailable [phone] Daryn Degroot DO Unavailable +22 Balta Sparrow MD Unavailable Austyn Ngo MD Unavailable [phone] Reason for Visit * Reason Onset Date Comments Pre-Surgical Call 01/13/2024 Encounter Details Date Type Department Care Team (Late st Contact Info) Description 01/13/2024 Telephone [facility] [address] [facility] [address] [place] [address] Ozzy Joyner MD [address] [place] [address] Pre-Surgical Call Social History Tobacco Use Types Packs/Day Years Used Date Smoking Tobacco: Former Cigarettes 1.5 32 1 12/31/1978 - 10/30/2011 Smokeless Tobacco: Never Comments:2022 PACK HX / former smoker Alcohol Use Standard Drinks/Week Comments No 0 (1 standard drink = 0.6 oz pur e alcohol) AUDIT-C Answer Date Recorded Q1: How often do you have a drink containing alcohol? Never 12/26/2023 Q2: How many drinks containi ng alcohol do you have on a typical day when you are drinking? Patient does not drink Q3: How often do you have si x or more drinks on one occasion? 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 Author CCM Chronic Pain Care Plan Chronic Care Management Improving( 12:45 PM CDT) No Tarah Lam, CATHY Note: Problem: Chronic Pain Goals: 1. Minimize further functional decline 2. Maximize quality of life 3. Control pain Strategies: - Activity/exercise program recommendation - Conservative stepwise pain medicine strategy with multi-disciplinary approach - Recommend healthy lifestyle strategies and compensatory methods as needed documented as of this encounter Visit Diagnoses Not on filedocumented in this encounter Care Teams Dining Room Captain Relationship Specialty Start Date End Date Ta Norman MD [address] [facility] [address] [place] [address] PCP - General 12/29/12 Pilo Latham MD [address] [facility] [place] [address] Medical Oncologist/Lockstitch Lining Maker Hematology 12/31/19 Reshma Davenport MD PhD [address] [facility] [place] [address] Consulting Physician Psychiatry 01/19/21 Daryn Degroot DO [address] [place] [address] Referring Physician Neurology 01/21/21 Balta Sparrow MD [address] [facility] [address] [place] [address] Referring Physician Psychiatry 01/21/21 Austyn Ngo MD [address] [facility] [address] [place] [address] Consulting Physician Otolaryngology 10/11/24 documented as of this encounter
--- OUTSIDE RECORDS SUMMARY | 2025-04-12 20:52 | XMS_ITS | Encounter Summary ---
Author Organization [facility] Healthcare Address [address] [place] [address] Care Team Providers Care Drywall Stripper Name Role Phone Ta Norman MD Primary Care Provider [phone] Pilo Latham MD Unavailable [phone] Reshma Davenport MD PhD Unavailable +[phone] Daryn Degroot DO Unavailable +68 Balta Sparrow MD Unavailable Austyn Ngo MD Unavailable [phone] Reason for Visit * Reason Onset Date Comments [facility] Preprocedure 04/16/2024 Encounter Details Date Type Department Care Team (Late st Contact Info) Description 04/16/2024 Telephone [facility] [address] [facility] Advanced Medicine [address] [place] [address] Ozzy Joyner MD [address] [place] [address] [facility] Preprocedure Social History Tobacco Use Types Packs/Day [...] on file 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 Gender Identity Not on file Sexual Orientation [...] on filedocumented in this encounter Care Teams Drywall Stripper Relationship Specialty Start Date End Date Ta Norman MD [address] [facility] [address] [place] [address] PCP - General 12/29/12 Pilo Latham MD [address] [facility] [place] [address] Medical Oncologist/Firer Electric Locomotive Hematology 12/31/19 Reshma Davenport MD PhD [address] [facility] [place] [address] Consulting Physician Psychiatry 01/19/21 Daryn Degroot DO [address] [place] [address] Referring Physician Neurology 01/21/21 Balta Sparrow MD [address] [facility] [address] [place] [address] Referring Physician Psychiatry 01/21/21 Austyn Ngo MD [address] [place] [facility] [address] [place] [address] Consulting Physician Otolaryngology 10/11/24 documented as of this encounter
[2025-04-12 20:55] VITALS: BP 175/117; PULSE 110; RESP 16; TEMP 36.6; O2SAT 97
--- OUTSIDE RECORDS SUMMARY | 2025-04-12 21:44 | XMS_ITS | Encounter Summary ---
Author Organization [facility] Healthcare Address [address] [place] [address] Care Team Providers Care Wagon Drill Operator Name Role Phone Ta Norman MD Primary Care Provider [phone] Pilo Latham MD Unavailable [phone] Reshma Davenport MD PhD Unavailable +13 Daryn Degroot DO Unavailable +96 Balta Sparrow MD Unavailable Austyn Ngo MD Unavailable [phone] Reason for Visit * Reason Onset Date Comments Anticoagulation 06/14/2024 Encounter Details Date Type Department Care Team (Late st Contact Info) Description 06/14/2024 Telephone [facility] [address] [facility] Advanced Medicine [address] [place] [address] Ozzy Joyner MD [address] [place] [address] Anticoagulation Social History Tobacco Use Types Packs/Day [...] on file 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 [place] [address] Medical Oncologist/Certified Fire Investigator Hematology 12/31/19 Reshma Davenport MD PhD [address] [place] [facility] [place] [address] Consulting Physician Psychiatry 01/19/21 Daryn Degroot DO [address] [place] [address] Referring Physician Neurology 01/21/21 Balta Sparrow MD [address] [facility] [address] [place] [address] Referring Physician Psychiatry 01/21/21 Austyn Ngo MD [address] [place] [facility] [address], [place] [address] Consulting Physician Otolaryngology 10/11/24 documented as of this encounter
--- OUTSIDE RECORDS SUMMARY | 2025-04-12 21:44 | XMS_ITS | Referral Summary ---
Author Organization [facility] Address [address] [place] [address] Care Team Providers Care Lead Javascript Engineer Name Role Phone Ta Norman MD Primary Care Provider Pilo Latham MD Unavailable [phone] Reshma Davenport MD PhD Unavailable [phone] Daryn Degroot DO Unavailable [phone] Balta Sparrow MD Unavailable Austyn Ngo MD Unavailable [phone] Encounters Date Type Department Care Team Description 04/12/2025 12:31 PM CDT Hospital Encounter [facility] [address] [facility] [address] [place] [address] Ozzy Joyner MD Cervical spondylosis with radiculopathy (Primary Dx); Lumbar disc disease with radiculopathy 04/11/2025 Telephone [facility] [address] [facility] [address] [place] [address] Ozzy Joyner MD [facility] Preprocedure 03/30/2025 Orders Only [facility] [place] [address] [facility] [address] [place] [address] Amisha Robin MD EMILIA (obstructive sleep apnea) (Primary Dx) 03/30/2025 11:45 AM CDT Office Visit [facility] [place] [address] [facility] [address] [place] [address] Amisha Robin MD EMILIA (obstructive sleep apnea) (Primary Dx); Polycythemia, secondary; Cigarette nicotine dependence in remission; ICD (implantable cardioverter-defibrilla tor) in place; Traumatic brain injury, with loss of consciousness of 6 hours to 24 hours, sequela; Psychophysiological insomnia; Multiple pulmonary nodules; Nocturnal sleep-related eating disorder; Other fatigue; BMI 34.0-34.9,adult 03/08/2025 Results Follow-Up [address] [id number] Ta Norman MD Thyroid Function Martin, CBC with auto differential, Comprehensive metabolic panel, Additional followed-up results: 2 03/08/2025 2:40 PM CDT Lab [place] [id number] [facility] [address] [place] [phone] Moderate episode of recurrent major depressive disorder (HCC); Mixed hyperlipidemia 03/08/2025 2:00 PM CDT Office Visit [address] [address] Ta Norman MD 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) (Primary Dx); Moderate episode of recurrent major depressive disorder (HCC); Coronary artery disease involving ute mountain coronary artery of ute mountain heart without angina pectoris; Paroxysmal atrial fibrillation (HCC); Mixed hyperlipidemia 02/02/2025 12:30 PM CDT - 02/02/2025 11:59 PM CDT Hospital Encounter [facility] [address] [address] Ozzy Joyner MD Lumbar disc disease with radiculopathy (Primary Dx); Cervical spondylosis with radiculopathy Discharge Disposition: Discharge to home or self care 01/31/2025 Telephone [facility] [address] [place] [address] Ozzy Joyner MD [facility] Preprocedure 01/25/2025 Telephone [facility] Medicine [address] [facility] [address] [place] [address] Ozzy Joyner MD Anticoagulation from Last 3 [...] in. Assessment & Plan (11/26/2024 5:17 PM TISSUE TECHNICIAN): Given signs and symptoms of Lumbar radiculopathy we will proceed with LESI at L4-L5 today. R/B/A discussed, including but not limited to bleeding, infection, increased pain, PDPH, and possible nerve injury/paralysis. Alternatives (risks) include: medication managment (dependency), no intervention (increased pain). Patient understand risks/benefits/alternatives and agrees to proceed with injection. Assessment & Plan (10/12/2024 5:03 PM TISSUE TECHNICIAN): Plan for repeat LESI in Nov. [...] PRN Assessment & Plan (12/26/2023 3:01 PM TISSUE TECHNICIAN): Plan for LESI given stenosis and numbness in the legs. 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 Will proceed with CT lumbar spine. Reports unable to have MRI due to device. Assessment & Plan (09/12/2023 3:31 PM CDT): Refer to PT. Consider CT Myalgia of muscle of neck 08/21/2023 Assessment & Plan (10/21/2023 1:50 PM TISSUE TECHNICIAN): TPI helped spasm. Assessment & Plan [...] Today. Assessment & Plan (11/26/2024 5:18 PM TISSUE TECHNICIAN): S/p LEO with >80% pain relief and still ongoing. The pain is slowly coming back. Might consider to repeat the injection in 6-8 weeks. Assessment & Plan (10/12/2024 5:04 PM TISSUE TECHNICIAN): Proceed with repeat LEO today. Assessment [...] today. Assessment & Plan (12/26/2023 3:01 PM TISSUE TECHNICIAN): Repeat SARAH prn. Assessment & Plan (10/21/2023 1:51 PM TISSUE TECHNICIAN): Feels RUE sx are starting to return. Will repeat SARAH. 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 Villatoro (Cardiology) about starting memantine We will look into hyperbaric oxygen therapy Discussed Brain for cognitive exercise Consider donepezil, dextroamphetamine-methamphetamine Assessment & Plan (01/19/2021 3:10 PM TISSUE TECHNICIAN): 1. Need to obtain Neuropsych testing done at the [facility] last week (01/09) 2. I'll refer to TBI clinic for continuity of care for TBI, CTE, CBT, gait/ balance issues. 3. Already referred to Sleep Medicine for EMILIA. 4. Minimize centrally acting meds as able: Tramadol currently 50 every other day, Trazodone 100 and Valium 10mg x2 each night. Wellbutrin 100 BID. 5. Can consider DIRECTOR ORACLE DATABASE for word finding difficulties down the line. [...] (02/24/2020): Added automatically from request for surgery [id number] Assessment & Plan (04/20/2020 4:33 PM CDT): Patient has no history that he knows of of abdominal trauma. There is also no pancreatic mass seen on CT scan and no evidence of cirrhosis on CT scan. Will 1st evaluate by endoscopy and colonoscopy then will consider further evaluation by endoscopic ultrasound Weight loss 01/31/2020 Overview (01/31/2020): Added automatically from request for surgery [id number] Assessment & Plan (04/20/2020 4:31 PM CDT): This weight loss has been associated with more frequent stools and also associated with the finding of isolated gastric varices. There is no evidence of cirrhosis or any pancreatic mass on CT scan. Will begin with endoscopy and colonoscopy. Rule out malignancy, malabsorption, or other causes. 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 Rishi Villatoro ICD (implantable cardioverter-defibrillator) in place 08/09/2019 Overview (08/09/2019): [facility] placed on 03/27/2018 Nonischemic cardiomyopathy 08/09/2019 Overview (08/09/2019): Left ventricular ejection fraction 35% by echo on 03/05/[address] Villatoro Coronary artery disease invo lving ute mountain coronary artery of ute mountain heart without angina pectoris 08/09/2019 Overview (08/09/2019): [...] counseling. 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 Gender Identity Not on file Sexual [...] as needed Medical Devices Implanted Type Area Phlebotomist Medical Lab Assistant Device Identifier Shelf Expiration Date Model / Serial / Lot [employer] Employment Educational Coord-D Pulse Generator ([id number])-2017 Implanted: 018 by Geo Gtz MD (Quantity not on file) ICD Left: Chest [facility] [id number] / [id number] / Description:This CIED is NOT MRI Conditional, [...] a phone call with the vendor (07/05/2020): https://Software [email or web address]/Search-[email or web address]?re=[place]&cc=US&ln=EN&ct=professional &qry= [email or web address]&ipp=10 Medtronic Lead (Ra)-01/28/2007 Implanted: 007 by Geo Gtz MD (Quantity not on file) Lead Heart Medtronic Cardiac Rhythm Mgmt 5076 / [id number] / Description:This CIED is NOT MRI Conditional, [...] a phone call with the vendor (07/05/2020): [email or web address]-[email or web address]?re=[place]&cc=US&ln=EN&ct=professional &qry= [email or web address]&ipp=10 [employer] Lead (Rv)-03/27/2018 Implanted: 018 by Geo Gtz MD (Quantity not on file) Lead Heart [employer] 7122Q/65 / [id number] / Description:This CIED is NOT MRI Conditional, [...] a phone call with the vendor (07/05/2020): https://Software 2000sfrenting/Search-Form?re=[place]&cc=US&ln=EN&ct=professional &qry= [email or web address]&ipp=10 [employer] Lead (Lv)-03/27/2018 Implanted: 018 by Geo Gtz MD (Quantity not on file) Lead Heart [facility] 1458Q/86 / [id number] / Description:This CIED is NOT MRI Conditional, [...] a phone call with the vendor (07/05/2020): [email or web address]://Sprout Route/Search-Form?re=[place]&cc=US&ln=EN&ct=professional &qry= [email or web address]&ipp=10 Implanted - Out of Service Type Area Phlebotomist Medical Lab Assistant Device Identifier Shelf Expiration Date Model / Serial / Lot Abandoned Medtronic Rv Lead (5076-58)-01/28/2007 Implanted:01/29/20 07 (Quantity not on file) Lead Chest Medtronic Cardiac Rhythm Mgmt 5076-58 / [id number] / Description:This CIED is NOT MRI Conditional, [...] a phone call with the vendor (07/05/2020): [email or web address]://Sprout Route/Search-Form?re=[place]&cc=US&ln=EN&ct=professional &qry= [email or web address]&ipp=10 Procedures Procedure Name Priority Date/Time Associated Diagnosis [...] radiculopathy PSA SCREEN Routine 09/28/2024 2:12 PM TISSUE TECHNICIAN Prostate cancer screening CT LUNG CANCER SCREENING Schedule Routine, Read Routine (OP Routine) 09/28/2024 11:25 AM TISSUE TECHNICIAN Personal history of nicotine dependence COLONOSCOPY 05/03/2020 2:05 PM CDT HEPATITIS PANEL, ACUTE Routine 04/26/2020 1:20 PM CDT Weight loss Diarrhea, unspecified type Gastric varices from Last 3 Months or Most Recently Relevant to Health Maintenance Results * Imaging Lumbar/Caudal Epidural Steroid INJ (11298) (04/12/2025 1:29 PM CDT) Narrative [facility] - 04/12/2025 1:29 PM CDT The images from this study are not interpreted by Radiology. Please refer to the physician's procedure / OR operative note. us Ozzy Joyner MD IMG PAIN MGMT PROCEDURE S Final Result Performing Organization Address [facility]/ZIP Co de Phone Number [facility] * eGFR [...] ORDERABLES Final Res ult Performing Organization Address [facility]/ZIP Co de Phone Number [facility] [address] [place] [address] * Differential, auto (03/08/2025 2:38 PM CDT) Neutrophil abs 5.06 1.50 - 6.50 K/cumm Imm gran abs 0.06 0.00 - 0.10 K/cumm [facility] Lymphocyte abs 1.80 0.80 - 3.30 K/cumm [facility] Monocyte abs 0.62 0.20 - 0.80 K/cumm [facility] Eosinophil abs 0.14 0.00 - 0.50 K/cumm [facility] Basophil abs 0.03 0.00 - 0.10 K/cumm [facility] Neutrophil pct 65.7 % [facility] Comment: Interpretive Data Percent cell count reference ranges are not reported, since discordance with absolute values may lead to misinterpretation of CBC data. Current Interpretive Data was last revised on 2018. Imm gran pct 0.8 % [facility] Comment: Interpretive Data Percent cell count reference ranges are not reported, since discordance with absolute values may lead to misinterpretation of CBC data. Current Interpretive Data was last revised on 2018. Lymphocyte pct 23.3 % [facility] Comment: Interpretive Data Percent cell count reference ranges are not reported, since discordance with absolute values may lead to misinterpretation of CBC data. Current Interpretive Data was last revised on 2018. Monocyte pct 8.0 % [facility] Comment: Interpretive Data Percent cell count reference ranges are not reported, since discordance with absolute values may lead to misinterpretation of CBC data. Current Interpretive Data was last revised on 2018. Eosinophil pct 1.8 % [facility] Comment: Interpretive Data Percent cell count reference ranges are not reported, since discordance with absolute values may lead to misinterpretation of CBC data. Current Interpretive Data was last revised on 2018. Basophil pct 0.4 % [facility] Comment: Interpretive Data Percent cell count reference ranges are not reported, since discordance with absolute values may lead to misinterpretation of CBC data. Current Interpretive Data was last revised on 2018. Blood 03/08/2025 2:38 PM CDT 03/08/2025 3:39 PM CDT us Ta Norman MD LAB BLOOD ORDERABLES Final Res ult [facility] [address] [place] [address] * Thyroid Function Martin (03/08/2025 2:38 PM CDT) Pathologist [facility] TSH 1.92 0.30 - 4.20 mcIUnit/mL Blood 03/08/2025 2:38 PM CDT 03/08/2025 3:38 PM CDT Ta Norman MD LAB BLOOD ORDERABLES Final Res ult Performing Organization Address [facility] Co de Phone Number [facility] [address] Department [place] [place] [address] * CBC with auto differential (03/08/2025 2:38 PM CDT) [facility] WBC 7.71 3.80 - 9.90 K/cumm Hgb 17.1 13.0 - 17.5 g/dL [facility] Hct 49.5 38.9 - 50.3 % [facility] Plt 288 150 - 400 K/cumm [facility] MPV 9.4 9.1 - 12.3 fL [facility] RBC 5.39 4.30 - 5.80 M/cumm [facility] MCV 91.8 81.3 - 96.4 fL [facility] MCH 31.7 27.1 - 33.3 pg [facility] MCHC 34.5 32.3 - 35.7 g/dL [facility] RDW CV 12.0 11.1 - 14.9 % [facility] RDW SD 39.9 35.7 - 48.1 fL [facility] NRBC abs 0.00 0.00 - 0.01 K/cumm [facility] Blood 03/08/2025 2:38 PM CDT 03/08/2025 3:39 PM CDT Ta Norman MD LAB BLOOD ORDERABLES Final Res ult Performing Organization Address [facility]/ZIP Co de Phone Number [facility] [address] [place] [address] * Comprehensive metabolic panel (03/08/2025 2:38 PM CDT) Sodium 140 135 - 145 mmol/L Potassium, pl 4.5 3.3 - 4.9 mmol/L [facility] Chloride 103 97 - 110 mmol/L [facility] CO2 27 22 - 32 mmol/L [facility] Anion gap 10 2 - 15 mmol/L [facility] BUN 11 6 - 25 mg/dL [facility] Creatinine 0.84 0.80 - 1.30 mg/dL [facility] Glucose 83 70 - 199 mg/dL [facility] Comment: Interpretive Data Fasting glucose >/= 126 [...] 2022. Calcium 9.1 8.5 - 10.3 mg/dL [facility] Bilirubin, total 0.6 0.1 - 1.2 mg/dL [facility] Protein, pl 6.7 6.5 - 8.5 g/dL [facility] Albumin 4.0 3.5 - 5.0 g/dL [facility] Alk phos 67 40 - 130 Units/L [facility] ALT 34 7 - 55 Units/L [facility] AST 27 10 - 50 Units/L [facility] Blood 03/08/2025 2:38 PM CDT 03/08/2025 3:38 PM CDT us Ta Norman MD LAB BLOOD ORDERABLES Final Res ult [facility] [address] [place] [address] * Imaging Cervical/Thoracic Epidural Steroid INJ (18856) (02/02/2025 2:49 PM CDT) Narrative [facility] - 02/02/2025 2:49 PM CDT The images from this study are not interpreted by Radiology. Please refer to the physician's procedure / OR operative note. Ivan Garcia MD IMG PAIN MGMT PROCEDURES Final R esult Performing Organization Address [facility] Co de Phone Number [facility] * PSA screen (09/28/2024 2:12 PM TISSUE TECHNICIAN) PSA-Total 1.98 <=5.40 ng/mL Comment: Interpretive [...] last revised 22. Blood 09/28/2024 2:12 PM TISSUE TECHNICIAN 09/28/2024 3:27 PM TISSUE TECHNICIAN Ta Norman MD LAB BLOOD ORDERABLES Final Res ult Performing Organization Address [facility] Co de Phone Number [facility] [address] [place] [address] * CT Lung Cancer Screening (09/28/2024 11:25 AM TISSUE TECHNICIAN) Anatomical Region Laterality Modality Chest N/A Computed Tomogra phy 09/28/2024 11:4 5 AM TISSUE TECHNICIAN Impressions 09/28/2024 11:45 AM TISSUE TECHNICIAN 1. LungRADS Category 2 (benign) . [...] Sierra Lemons M.D. Narrative 09/28/2024 11:45 AM TISSUE TECHNICIAN EXAMINATION: Lung cancer screening CT of [...] 05/03/2020 2:05 PM Admit Type: Outpatient Room: [facility] Date of : 1960 Instrument Name: [id number] [...] the bowel preparation was evaluatedusing the BBPS ([place]ezi Bowel Preparation Scale) with scoresof: Right Colon [...] Comment: For additional information, please refer to http://Greenbox.Invoke Solutions/faq/PVO958 (This link is being provided for informational/ [...] a test for HCV RNA (test code 97976) is suggested. For additional information please refer to http://Greenbox.Invoke Solutions/faq/VRJ08q0 (This link is being provided for informational/ educational purposes only.) Blood specimen (specimen) 04/26/2020 1:20 PM CDT 04/26/2020 2:30 PM CDT Franc Pena MD LAB MICROBIOLOGY - GENERAL ORDERABLES Final Result [facility] [address] [place] [address] from Last 3 Months or Most Recently Relevant to Health Maintenance Insurance MEDICARE LoopMe MEDICARE LoopMe [facility] Advance Directives For more information, please contact: [phone] Documents on File Type Date Recorded Patient Global Sales Executive Expl anation ADVANCE DIRECTIVE 01/19/2024 11:55 PM 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 * Full Code (Latest Code Status on File) Date Activated Date Inactivated Comments 05/31/2020 11:01 AM 05/31/2020 5:45 PM * Full Code Date Activated Date Inactivated Comments 05/03/2020 1:16 PM 05/03/2020 7:40 PM Care Teams Lead Javascript Engineer Relationship Specialty Start Date End Date Ta Norman MD [address] [address] PCP - General 12/29/12 Pilo Latham MD [address] [facility] [place] [address] Medical Oncologist/Typewriter Tester Hematology 12/31/19 Reshma Davenport MD PhD [address] [facility] [place] [address] Consulting Physician Psychiatry 01/19/21 Daryn Degroot DO [address] [place] [address] Referring Physician Neurology 01/21/21 Balta Sparrow MD [address] [facility] [address] [place] [address] Referring Physician Psychiatry 01/21/21 Austyn Ngo MD [address] [facility] [address], [place] [address] Consulting Physician Otolaryngology 10/11/24
--- OUTSIDE RECORDS SUMMARY | 2025-04-12 21:44 | XMS_ITS | Clinical Summary ---
Author Organization [facility] Address [address] [place] [address] Care Team Providers Care Retail Account Executive Name Role Phone Ta Norman MD Primary Care Provider [phone] Allergies Active Allergy Reactions Criticality Noted Date [...] migh t be different from the original. Lead Mechanical Engineer - Dr Rishi Villatoro Foil Cutter- Dr Geo Gtz Problem Noted Date Diagnosed [...] (08/14/2010): maintained on aspirin and a beta arci, with no recent episodes Coronary atherosclerosis of [place] coronary melissa ry Overview (06/02/2013): Mild by cardiac catheterization 12/06/10 (40% coronary lesion, left ventricular ejection fraction 50-55%). Nuclear medicine stress test 12/14/12: 9:31, 10.1 METS, clinically negative, ECG uninterpretable (paced), no ischemia or infarction, LVEF 43%. 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 EST. AVG GLUCOSE, A1C 108 mg/dL 05/07/2017 1:19 PM CDT [facility] Blood Venipuncture / Unknown 05/07/2017 11:52 AM CDT 05/07/2017 12:16 PM CDT Kaitlynn Kessler MD CHEMISTRY ORDERABLES Ryann cole Result [facility] CLIA# [id number] [address] [place] [address] from Last 3 Months or Most Recently Relevant to [place] [address] MEDICARE PART A AND B [employer] [employer] Advance Directives For more information, please contact: [phone] * Full Code (Latest Code Status on File) Date Activated Date Inactivated Comments 02/08/2014 9:47 AM 02/08/2014 6:12 PM Care Teams Retail Account Executive Relationship Specialty Start Date End Date Ta Norman MD PCP - General 11/14/15
--- OUTSIDE RECORDS SUMMARY | 2025-04-12 21:44 | XMS_ITS | Encounter Summary ---
Author Organization [facility] Healthcare Address [address] [place] [address] Care Team Providers Care Investor Relations Analyst Name Role Phone Ta Norman MD Primary Care Provider [phone] Pilo Latham MD Unavailable [phone] Reshma Davenport MD PhD Unavailable [phone] Daryn Degroot DO Unavailable +[phone] Balta Sparrow MD Unavailable Austyn Ngo MD Unavailable [phone] Reason for Visit * Reason Onset Date Comments Anticoagulation 04/12/2024 Encounter Details Date Type Department Care Team (Late st Contact Info) Description 04/12/2024 Telephone [facility] [address] [facility] [address] [place] [address] Ozzy Joyner MD [address] [facility] [address] [place] [address] Anticoagulation Social History Tobacco Use Types Packs/Day [...] on file Legal Sex Male 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 [employer] Gender Identity Not on file Sexual Orientation [...] on filedocumented in this encounter Care Teams Investor Relations Analyst Relationship Specialty Start Date End Date Ta Norman MD [address] [facility] [address] [place] [address] PCP - General 12/29/12 Pilo Latham MD [address] [facility] [facility] [place] [address] Medical Oncologist/Assistant Professor Of English Hematology 12/31/19 Reshma Davenport MD PhD [address] [facility] [place] [address] Consulting Physician Psychiatry 01/19/21 Daryn Degroot DO [address] [place] [address] Referring Physician Neurology 01/21/21 Balta Sparrow MD [address] [facility] [address] [place] [address] Referring Physician Psychiatry 01/21/21 Austyn Ngo MD [address] [facility] [address] [address] Consulting Physician Otolaryngology 10/11/24 documented as of this encounter
--- OUTSIDE RECORDS SUMMARY | 2025-04-12 21:44 | XMS_ITS | Encounter Summary ---
Author Organization [facility] Healthcare Address [address] [place] [address] Care Team Providers Care Engineering Writer Name Role Phone Ta Norman MD Primary Care Provider [phone] Pilo Latham MD Unavailable [phone] Reshma Davenport MD PhD Unavailable [phone] Daryn Degroot DO Unavailable +[phone] Balta Sparrow MD Unavailable Austyn Ngo MD Unavailable [phone] Reason for Visit * Reason Onset Date Comments Pre-Surgical Call 01/13/2024 Encounter Details Date Type Department Care Team (Late st Contact Info) Description 01/13/2024 Telephone [facility] [address] [facility] [address] [place] [address] Ozzy Joyner MD [address] [place] [address] Pre-Surgical Call Social History Tobacco Use Types [...] on file 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 Gender Identity Not on file Sexual Orientation [...] on filedocumented in this encounter Care Teams Engineering Writer Relationship Specialty Start Date End Date Ta Norman MD [address] [facility] [address] [place] [address] PCP - General 12/29/12 Pilo Latham MD [address] [facility] [place] [address] Medical Oncologist/Hand Icer Hematology 12/31/19 Reshma Davenport MD PhD [address] [facility] [place] [address] Consulting Physician Psychiatry 01/19/21 Daryn Degroot DO [address] [place] [address] Referring Physician Neurology 01/21/21 Balta Sparrow MD [address] [facility] [address] [place] [address] Referring Physician Psychiatry 01/21/21 Austyn Ngo MD [address] [facility] [address] [place] [address] Consulting Physician Otolaryngology 10/11/24 documented as of this encounter
--- OUTSIDE RECORDS SUMMARY | 2025-04-12 21:44 | XMS_ITS | Encounter Summary ---
Author Organization [facility] Address 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 ACT value for sheath pull at [facility] has been established to be < or = to 1 40. (See also Nursing Procedures for sheath pull in related nursing areas) 02/06/2007 9:25 AM CDT Tad Holguin MD POINT OF CARE TESTING Edited Performing Organization Address [facility] de Phone Number INTERFACE SYSTEM Refer [...] MD HEMATOLOGY ORDERABLES Edited Performing Organization Address [facility] Phone Number INTERFACE SYSTEM Refer to clinic/hospital [...] MD HEMATOLOGY ORDERABLES Edited Performing Organization Address [facility] Phone Number INTERFACE SYSTEM Refer to clinic/hospital [...] patients with mechanical heart valves or post SC. Pediatric (12 years and under): 1.5 - [...] MD HEMATOLOGY ORDERABLES Edited Performing Organization Address [facility] Phone Number INTERFACE SYSTEM Refer to clinic/hospital [...] and non- Americans is available on the [facility] Transper[employer]et at: [email or web address] Select: Lab Policies and Procedures Select: Reference Ranges - GFR 02/06/2007 6:17 AM CDT Tad Holguin MD CHEMISTRY ORDERABLES Edited INTERFACE SYSTEM Refer to clinic/hospital department documented in this encounter Visit Diagnoses Diagnosis Supraventricular premature beats- Primary documented in this encounter Care Teams Geospatial Analyst Relationship Specialty Start Date End Date Ta Norman MD PCP - General 11/14/15 documented as of this encounter
--- OUTSIDE RECORDS SUMMARY | 2025-04-12 21:44 | XMS_ITS | Clinical Summary ---
Author Organization [facility] Address [address] [place] [address] Care Team Providers Care Disability Specialist Name Role Phone Ta Norman MD Primary Care Provider [phone] Pilo Latham MD Unavailable [phone] Reshma Davenport MD PhD Unavailable [phone] Daryn Degroot DO Unavailable [phone] Balta Sparrow MD Unavailable Austyn Ngo MD Unavailable [phone] Allergies Active Allergy Reactions Criticality Noted Date [...] in. Assessment & Plan (11/26/2024 5:17 PM SAP DATA ARCHITECT): Given signs and symptoms of Lumbar radiculopathy we will proceed with LESI at L4-L5 today. R/B/A discussed, including but not limited to bleeding, infection, increased pain, PDPH, and possible nerve injury/paralysis. Alternatives (risks) include: medication managment (dependency), no intervention (increased pain). Patient understand risks/benefits/alternatives and agrees to proceed with injection. Assessment & Plan (10/12/2024 5:03 PM SAP DATA ARCHITECT): Plan for repeat LESI in Nov. Notes [...] PRN Assessment & Plan (12/26/2023 3:01 PM SAP DATA ARCHITECT): Plan for LESI given stenosis and numbness in the legs. 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 Will proceed with CT lumbar spine. Reports unable to have MRI due to device. Assessment & Plan (09/12/2023 3:31 PM CDT): Refer to PT. Consider CT Myalgia of muscle of neck 08/21/2023 Assessment & Plan (10/21/2023 1:50 PM SAP DATA ARCHITECT): TPI helped spasm. Assessment & Plan (09/12/2023 [...] Today. Assessment & Plan (11/26/2024 5:18 PM SAP DATA ARCHITECT): S/p LEO with >80% pain relief and still ongoing. The pain is slowly coming back. Might consider to repeat the injection in 6-8 weeks. Assessment & Plan (10/12/2024 5:04 PM SAP DATA ARCHITECT): Proceed with repeat LEO today. Assessment & [...] today. Assessment & Plan (12/26/2023 3:01 PM SAP DATA ARCHITECT): Repeat SARAH prn. Assessment & Plan (10/21/2023 1:51 PM SAP DATA ARCHITECT): Feels RUE sx are starting to return. Will repeat SARAH. 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 Villatoro (Cardiology) about starting memantine We will look into hyperbaric oxygen therapy Discussed BrainHQ for cognitive exercise Consider donepezil, dextroamphetamine-methamphetamine Assessment & Plan (01/19/2021 3:10 PM SAP DATA ARCHITECT): 1. Need to obtain Neuropsych testing done at the [place] last week (01/09) 2. I'll refer to TBI clinic for continuity of care for TBI, CTE, CBT, gait/ balance issues. 3. Already referred to Sleep Medicine for EMILIA. 4. Minimize centrally acting meds as able: Tramadol currently 50 every other day, Trazodone 100 and Valium 10mg x2 each night. Wellbutrin 100 BID. 5. Can consider EMPLOYMENT INTERVIEWER for word finding difficulties down the line. [...] (02/24/2020): Added automatically from request for surgery [id number] Assessment & Plan (04/20/2020 4:33 PM CDT): Patient has no history that he knows of of abdominal trauma. There is also no pancreatic mass seen on CT scan and no evidence of cirrhosis on CT scan. Will 1st evaluate by endoscopy and colonoscopy then will consider further evaluation by endoscopic ultrasound Weight loss 01/31/2020 Overview (01/31/2020): Added automatically from request for surgery [id number] Assessment & Plan (04/20/2020 4:31 PM CDT): This weight loss has been associated with more frequent stools and also associated with the finding of isolated gastric varices. There is no evidence of cirrhosis or any pancreatic mass on CT scan. Will begin with endoscopy and colonoscopy. Rule out malignancy, malabsorption, or other causes. 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 Rishi Villatoro ICD (implantable cardioverter-defibrillator) in place 08/09/2019 Overview (08/09/2019): [facility] placed on 03/27/2018 Nonischemic cardiomyopathy 08/09/2019 Overview (08/09/2019): Left ventricular ejection fraction 35% by echo on 03/05/[address] Villatoro Coronary artery disease invo lving [place] coronary artery of [place] heart without angina pectoris 08/09/2019 Overview (08/09/2019): [...] counseling. Assessment & Plan (10/31/2018 7:30 PM SAP DATA ARCHITECT): BMI Follow-up includes: nutrition counseling and exercise [...] 04/12/2025 12:31 PM CDT Hospital Encounter [facility] at the [address] [place] [address] Ozzy Joyner MD Cervical spondylosis with radiculopathy (Primary Dx); Lumbar disc disease with radiculopathy 04/11/2025 Telephone [facility] the [facility] Medicine [address] [place] [address] [place] [address] Ozzy Joyner MD [facility] Preprocedure 03/30/2025 11:45 AM CDT Office Visit [facility] Pulmonary [address] [place] [phone] Amisha Robin MD EMILIA (obstructive sleep apnea) (Primary Dx); Polycythemia, secondary; Cigarette nicotine dependence in remission; ICD (implantable cardioverter-defibrilla tor) in place; Traumatic brain injury, with loss of consciousness of 6 hours to 24 hours, sequela; Psychophysiological insomnia; Multiple pulmonary nodules; Nocturnal sleep-related eating disorder; Other fatigue; BMI 34.0-34.9,adult 03/30/2025 Orders Only [facility] Pulmonary [address] [place] [phone] Amisha Robin MD EMILIA (obstructive sleep apnea) (Primary Dx) 03/08/2025 2:40 PM CDT Lab [facility] [address] [facility] [address] [place] [phone] Moderate episode of recurrent major depressive disorder (HCC); Mixed hyperlipidemia 03/08/2025 2:00 PM CDT Office Visit [facility] [address] [facility] [address] [place] [phone] Ta Norman MD 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) (Primary Dx); Moderate episode of recurrent major depressive disorder (HCC); Coronary artery disease involving [place] coronary artery of [place] heart without angina pectoris; Paroxysmal atrial fibrillation (HCC); Mixed hyperlipidemia 03/08/2025 Results Follow-Up [facility] [address] [facility] [address] [place] [phone] Ta Norman MD Thyroid Function Citrus, CBC with auto differential, Comprehensive metabolic panel, Additional followed-up results: 2 02/02/2025 12:30 PM CDT - 02/02/2025 11:59 PM CDT Hospital Encounter [facility] Advanced Medicine [address] [place] [address] [address] [place] [address] Ozzy Joyner MD Lumbar disc disease with radiculopathy (Primary Dx); Cervical spondylosis with radiculopathy Discharge Disposition: Discharge to home or self care 01/31/2025 Telephone [facility] at [facility] Advanced Medicine [address] [place] [address] Advanced Medicine [address] [place] [address] Ozzy Joyner MD PM[facility] Preprocedure 01/25/2025 Telephone [facility] at the [facility] Advanced Medicine [address] [place] [address] Advanced Medicine [address] [place] [address] Ozzy Joyner MD Anticoagulation from Last 3 [...] on file Legal Sex Male 2:04 AM SAP DATA ARCHITECT Gender Identity Not on file Sexual Orientation [...] as needed Medical Devices Implanted Type Area Power Bender Operator Device Identifier Shelf Expiration Date Model / Serial / Lot [employer] Tech-D Pulse Generator ([id number])-2017 Implanted: 018 by Geo Gtz MD (Quantity not on file) ICD Left: Chest [facility] [employer] [id number] / [id number] / Description:This CIED is NOT MRI Conditional, [...] a phone call with the vendor (07/05/2020): [email or web address]/Search-Form?re=[email or web address]&cc=US&ln=EN&ct=professional &qry= [email or web address]&ipp=10 Medtronic Lead (Ra)-01/28/2007 Implanted: 007 by Geo Gtz MD (Quantity not on file) Lead Heart [employer] Cardiac Rhythm Mgmt 5076 / [id number] / Description:This CIED is NOT MRI Conditional, [...] a phone call with the vendor (07/05/2020): [email or web address]/Search-[email or web address]?re=[email or web address]&cc=US&ln=EN&ct=professional &qry= [email or web address]&ipp=10 [employer] Lead (Rv)-03/27/2018 Implanted: 018 by Geo Gtz MD (Quantity not on file) Lead Heart [facility] [employer] 7122Q/65 / [id number] / Description:This CIED is NOT MRI Conditional, [...] a phone call with the vendor (07/05/2020): [email or web address]-[email or web address]?re=[email or web address]&cc=US&ln=EN&ct=professional &qry= [email or web address]&ipp=10 [employer] Lead (Lv)-03/27/2018 Implanted: 018 by Geo Gtz MD (Quantity not on file) Lead Heart [facility] 1458Q/86 / [id number] / Description:This CIED is NOT MRI Conditional, [...] a phone call with the vendor (07/05/2020): [email or web address]-[email or web address]?re=[email or web address]&cc=US&ln=EN&ct=professional &qry= [email or web address]&ipp=10 Implanted - Out of Service Type Area Power Bender Operator Device Identifier Shelf Expiration Date Model / Serial / Lot Abandoned Medtronic Rv Lead (5076-58)-01/28/2007 Implanted:01/29/20 07 (Quantity not on file) Lead Chest Medtronic Cardiac Rhythm Mgmt 5076-58 / [id number] / Description:This CIED is NOT MRI Conditional, [...] a phone call with the vendor (07/05/2020): [email or web address]://[email or web address]/Search-Form?re=[place]&cc=US&ln=EN&ct=professional &qry= [email or web address]&ipp=10 Procedures Procedure Name Priority Date/Time Associated Diagnosis [...] radiculopathy PSA SCREEN Routine 09/28/2024 2:12 PM SAP DATA ARCHITECT Prostate cancer screening CT LUNG CANCER SCREENING Schedule Routine, Read Routine (OP Routine) 09/28/2024 11:25 AM SAP DATA ARCHITECT Personal history of nicotine dependence COLONOSCOPY 05/03/2020 2:05 PM CDT HEPATITIS PANEL, ACUTE Routine 04/26/2020 1:20 PM CDT Weight loss Diarrhea, unspecified type Gastric varices from Last 3 Months or Most Recently Relevant to Health Maintenance Results * Imaging Lumbar/Caudal Epidural Steroid INJ (43215) (04/12/2025 1:29 PM CDT) Narrative [facility] - [...] MD LAB BLOOD ORDERABLES Final Res ult [facility] [address] Department [place] [address] * Differential, auto (03/08/2025 2:38 PM CDT) Neutrophil abs 5.06 1.50 - 6.50 K/cumm Imm gran abs 0.06 0.00 - 0.10 K/cumm [facility] Lymphocyte abs 1.80 0.80 - 3.30 K/cumm [facility] Monocyte abs 0.62 0.20 - 0.80 K/cumm [facility] Eosinophil abs 0.14 0.00 - 0.50 K/cumm [facility] Basophil abs 0.03 0.00 - 0.10 K/cumm [facility] Neutrophil pct 65.7 % [facility] Comment: Interpretive Data Percent cell count reference ranges are not reported, since discordance with absolute values may lead to misinterpretation of CBC data. Current Interpretive Data was last revised on 2018. Imm gran pct 0.8 % [facility] Comment: Interpretive Data Percent cell count reference ranges are not reported, since discordance with absolute values may lead to misinterpretation of CBC data. Current Interpretive Data was last revised on 2018. Lymphocyte pct 23.3 % [facility] Comment: Interpretive Data Percent cell count reference ranges are not reported, since discordance with absolute values may lead to misinterpretation of CBC data. Current Interpretive Data was last revised on 2018. Monocyte pct 8.0 % [facility] Comment: Interpretive Data Percent cell count reference ranges are not reported, since discordance with absolute values may lead to misinterpretation of CBC data. Current Interpretive Data was last revised on 2018. Eosinophil pct 1.8 % [facility] Comment: Interpretive Data Percent cell count reference ranges are not reported, since discordance with absolute values may lead to misinterpretation of CBC data. Current Interpretive Data was last revised on 2018. Basophil pct 0.4 % [facility] Comment: Interpretive Data Percent cell count reference ranges are not reported, since discordance with absolute values may lead to misinterpretation of CBC data. Current Interpretive Data was last revised on 2018. Blood 03/08/2025 2:38 PM CDT 03/08/2025 3:39 PM CDT Ta Norman MD LAB BLOOD ORDERABLES Final Res ult Performing Organization Address City/[facility]/ZIP Co de Phone Number [facility] [address] Department of [employer] [place], [place] [phone] * Thyroid Function Citrus (03/08/2025 2:38 PM CDT) Pathologist [facility] TSH 1.92 0.30 - 4.20 mcIUnit/mL Blood 03/08/2025 2:38 PM CDT 03/08/2025 3:38 PM CDT Ta Norman MD LAB BLOOD ORDERABLES Final Res ult Performing Organization Address City/[facility] Co de Phone Number [facility] [address] Department of [employer] [place], [place] [id number] * CBC with auto differential (03/08/2025 2:38 PM CDT) [facility] WBC 7.71 3.80 - 9.90 K/cumm Hgb 17.1 13.0 - 17.5 g/dL [facility] Hct 49.5 38.9 - 50.3 % [facility] Plt 288 150 - 400 K/cumm [facility] MPV 9.4 9.1 - 12.3 fL [facility] RBC 5.39 4.30 - 5.80 M/cumm [facility] MCV 91.8 81.3 - 96.4 fL [facility] MCH 31.7 27.1 - 33.3 pg [facility] MCHC 34.5 32.3 - 35.7 g/dL [facility] RDW CV 12.0 11.1 - 14.9 % [facility] RDW SD 39.9 35.7 - 48.1 fL [facility] NRBC abs 0.00 0.00 - 0.01 K/cumm [facility] Blood 03/08/2025 2:38 PM CDT 03/08/2025 3:39 PM CDT us Ta Norman MD LAB BLOOD ORDERABLES Final Res ult [facility] [address] Department [place] [address] * Comprehensive metabolic panel (03/08/2025 2:38 PM CDT) Sodium 140 135 - 145 mmol/L Potassium, pl 4.5 3.3 - 4.9 mmol/L [facility] Chloride 103 97 - 110 mmol/L [facility] CO2 27 22 - 32 mmol/L [facility] Anion gap 10 2 - 15 mmol/L [facility] BUN 11 6 - 25 mg/dL [facility] Creatinine 0.84 0.80 - 1.30 mg/dL [facility] Glucose 83 70 - 199 mg/dL [facility] Comment: Interpretive Data Fasting glucose [...] 2022. Calcium 9.1 8.5 - 10.3 mg/dL [facility] Bilirubin, total 0.6 0.1 - 1.2 mg/dL [facility] Protein, pl 6.7 6.5 - 8.5 g/dL [facility] Albumin 4.0 3.5 - 5.0 g/dL [facility] Alk phos 67 40 - 130 Units/L [facility] ALT 34 7 - 55 Units/L [facility] AST 27 10 - 50 Units/L [facility] Blood 03/08/2025 2:38 PM CDT 03/08/2025 3:38 PM CDT us Ta Norman MD LAB BLOOD ORDERABLES Final Res ult [facility] [address] Department [place] [address] * Imaging Cervical/Thoracic Epidural Steroid INJ ([id number]) (02/02/2025 2:49 PM CDT) Narrative [facility] - 02/02/2025 2:49 PM CDT The images from this study are not interpreted by Radiology. Please refer to the physician's procedure / OR operative note. Ivan Garcia MD IMG PAIN MGMT PROCEDURES Final R esult Performing Organization Address City/[facility]/ZIP Co de Phone Number [facility] * PSA screen (09/28/2024 2:12 PM SAP DATA ARCHITECT) PSA-Total 1.98 <=5.40 ng/mL Comment: Interpretive Data [...] last revised 22. Blood 09/28/2024 2:12 PM SAP DATA ARCHITECT 09/28/2024 3:27 PM SAP DATA ARCHITECT us Ta Norman MD LAB BLOOD ORDERABLES Final Res ult [facility] [address] Department [place] [address] * CT Lung Cancer Screening (09/28/2024 11:25 AM SAP DATA ARCHITECT) Anatomical Region Laterality Modality Chest N/A Computed Tomogra phy 09/28/2024 11:4 5 AM SAP DATA ARCHITECT Impressions 09/28/2024 11:45 AM SAP DATA ARCHITECT 1. LungRADS Category 2 (benign) . Recommend [...] Sierra Lemons M.D. Narrative 09/28/2024 11:45 AM SAP DATA ARCHITECT EXAMINATION: Lung cancer screening CT of the [...] 05/03/2020 2:05 PM Admit Type: Outpatient Room: [facility] 8 Date of : 1960 Instrument Name: [...] the bowel preparation was evaluatedusing the BBPS ([place] Bowel Preparation Scale) with scoresof: Right Colon [...] Comment: For additional information, please refer to http://education.[employer]/faq/OHC734 (This link is being provided for informational/ educational purposes only.) HepBsAg NON-REACTIVE NON-REACT GEE [facility] HBV Surface ag, confirm CANCELED [facility] Comment:Result canceled by fortunato amrtin ancillary. Hep B core IgM NON-REACTIVE NON-REACT GEE [facility] Hep C Ab NON-REACTIVE NON-REACT GEE [facility] SIGNAL TO CUT-OFF 0.00 <1.00 [facility] Comment: HCV antibody was non-reactive. There is no laboratory evidence of HCV infection. In most cases, no further action is required. However, if recent HCV exposure is suspected, a test for HCV RNA (test code 62653) is suggested. For additional information please refer to http://education.[facility]/faq/VWH55s8 (This link is being provided for informational/ educational purposes only.) Blood specimen (specimen) 04/26/2020 1:20 PM CDT 04/26/2020 2:30 PM CDT Franc Pena MD LAB MICROBIOLOGY - GENERAL ORDERABLES Final Result [facility] [address] [place] [address] from Last 3 Months or Most Recently Relevant to Health [place] [address] MEDICARE Bliips INSURANCE [employer] MEDICARE [employer] [facility] Advance Directives For more information, please contact: [phone] Documents on File Type Date Recorded Patient Clinical Researcher Expl anation ADVANCE DIRECTIVE 01/19/2024 11:55 PM LOLI R [facility] * Full Code (Latest Code Status on File) Date Activated Date Inactivated Comments 05/31/2020 11:01 AM 05/31/2020 5:45 PM * Full Code Date Activated Date Inactivated Comments 05/03/2020 1:16 PM 05/03/2020 7:40 PM Care Teams Disability Specialist Relationship Specialty Start Date End Date Ta Norman MD [address] [facility] [address] [place] [address] PCP - General 12/29/12 Pilo Latham MD [address] [facility] [place] [address] Medical Oncologist/Hand Bootmaker Hematology 12/31/19 Reshma Davenport MD PhD [address] [facility] [place] [address] Consulting Physician Psychiatry 01/19/21 Daryn Degroot DO [address] [place] [address] Referring Physician Neurology 01/21/21 Balta Sparrow MD [address] [facility] [address] [place] [address] Referring Physician Psychiatry 01/21/21 Austyn Ngo MD [address] [facility] [address] [place] [address] Consulting Physician Otolaryngology 10/11/24
--- OUTSIDE RECORDS SUMMARY | 2025-04-12 21:44 | XMS_ITS | Encounter Summary ---
Author Organization [facility] Healthcare Address [facility] [place] [address] Care Team Providers Care Fork Repairer Name Role Phone Ta Norman MD Primary Care Provider [phone] Pilo Latham MD Unavailable [phone] Reshma Davenport MD PhD Unavailable [phone] Daryn Degroot DO Unavailable [phone] Balta Sparrow MD Unavailable Austyn Ngo MD Unavailable [phone] Reason for Visit * Reason Onset Date Comments Imaging CD 04/23/2023 Encounter Details Date Type Department Care Team (Late st Contact Info) Description 04/23/2023 Telephone [facility] [address] [facility] Advanced Medicine [address] [place] [address] Lisa Clarke CMA Imaging CD Social History [...] on file 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 [employer] Gender Identity Not on file Sexual Orientation Not on file documented as of this encounter Plan of Treatment Not on file documented as of this encounter Visit Diagnoses Not on filedocumented in this encounter Care Teams Fork Repairer Relationship Specialty Start Date End Date Ta Norman MD [address] [facility] [address] [place] [address] PCP - General 12/29/12 Pilo Latham MD [address] [facility] [place] [address] Medical Oncologist/Blow Mold Technician Hematology 12/31/19 Reshma Davenport MD PhD [address] [facility] [place] [address] Consulting Physician Psychiatry 01/19/21 Daryn Degroot DO [address] [place] [address] Referring Physician Neurology 01/21/21 Balta Sparrow MD [address] [facility] [address] [place] [address] Referring Physician Psychiatry 01/21/21 Austyn Ngo MD [address] [facility] [address] [place] [address] Consulting Physician Otolaryngology 10/11/24 documented as of this encounter
--- OUTSIDE RECORDS SUMMARY | 2025-04-12 21:44 | XMS_ITS | Encounter Summary ---
Author Organization [facility] Healthcare Address [address] [place] [address] Care Team Providers Care Marketing Database Coordinator Name Role Phone Ta Norman MD Primary Care Provider [phone] Pilo Latham MD Unavailable [phone] Reshma Davenport MD PhD Unavailable [phone] Daryn Degroot DO Unavailable [phone] Balta Sparrow MD Unavailable Austyn Ngo MD Unavailable [phone] Encounter Details Date Type Department Care Team (Late st Contact Info) Description 03/08/2025 Results Follow-Up [facility] Medicine [address] [facility] [address] [place] [address] Ta Norman MD [address] [facility] [address] [place] [address] Thyroid Function [place], CBC with auto differential, Comprehensive metabolic panel, [...] on file 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 [address] [place] [address] PCP - General 12/29/12 Pilo Latham MD [address] [facility] [place] [address] Medical Oncologist/Remnants Cutter Hematology 12/31/19 Reshma Davenport MD PhD [address] [facility] [place] [address] Consulting Physician Psychiatry 01/19/21 Daryn Degroot DO [address] [place] [address] Referring Physician Neurology 01/21/21 Balta Sparrow MD [address] [facility] [address] [place] [address] Referring Physician Psychiatry 01/21/21 Austyn Ngo MD [address] [facility] [address] [address] Consulting Physician Otolaryngology 10/11/24 documented as of this encounter
--- OUTSIDE RECORDS SUMMARY | 2025-04-12 21:44 | XMS_ITS | Clinical Summary ---
Author Organization [facility] Address [address] [place] [address] Care Team Providers Care Pipe Caulker Name Role Phone Ta Norman MD Primary Care Provider [phone] Rishi Villatoro MD Unavailable [phone] Source Comments [facility],non-owned Affiliates and Associated Physician Practices is amultiple site organization consisting of ambulatory clinics and hospital sitesin [place], [place], [place] and [place]. This disclosure is being madepursuant to the Care Everywhere program and may not contain all information available regarding this patient. Last updated 18.[facility] Allergies Active Allergy Reactions Criticality Noted Date [...] sildenafil (VIAGRA) 100 MG tabletIndications :Atherosclerosis of north fork coronary artery of north fork heart without angina pectoris,AV block, 2nd degree,Paroxysmal [...] migh t be different from the original. Agricultural Appraiser - Dr. Rishi Villatoro Problem Noted Date Diagnosed Date Ventricular tachycardia 04/07/2018 AV block, 2nd degree 02/10/2018 Atherosclerosis of north fork co ronary artery of north fork heart without angina pectoris 11/25/2016 Non morbid obesity due to excess calories 2016 Dietary counseling 12/11/2015 Sinoatrial node dysfunction 06/09/[address] 06/09/2015 Overview (03/30/2018): [facility] ICD Implant Model # [id number] Serial # [id number] Implanted by Dr. Gtz on 03/27/2018 RA: MEDT [id number] SN: [id number] (Implanted 01/28/2007) RV Lead Model 7122Q/65 Serial [id number] Implanted 03/27/18 LV Lead Model 1458Q/86 Serial [id number] Implanted 03/27/18 Medtronic Pacemaker - Versa [id number] SN: [id number] - Implanted 02/08/[address] Geo Gtz Explanted by Dr. Gtz 03/27/18 RV: MEDT [id number] SN: [id number] (Implanted 01/28/2007) Capped by Dr. Gtz on [...] Comments Blood Pressure 120/82 12/06/2020 12:40 PM QUALITY ASSURANCE TECHNICIAN Pulse 65 12/06/2020 12:40 PM QUALITY ASSURANCE TECHNICIAN Temperature 36.8 C (98.2 F) 03/27/2018 7:07 AM CDT Respiratory Rate 12 12/06/2020 12:40 PM QUALITY ASSURANCE TECHNICIAN Oxygen Saturation 97% 03/27/2018 1:50 PM CDT Inhaled Oxygen Concentration - - Weight 100.2 kg (221 lb) 12/06/2020 12:40 PM QUALITY ASSURANCE TECHNICIAN Height 177.8 cm (5' 10 ) 12/06/2020 12:40 PM QUALITY ASSURANCE TECHNICIAN Body Mass Index 31.71 12/06/2020 12:40 PM QUALITY ASSURANCE TECHNICIAN Plan of Treatment Health Maintenance Due Date [...] patient's age to complete [place] [address] MEDICARE [facility] [address]PT [address] [place] [address] Care Teams Pipe Caulker Relationship Specialty Start Date End Date Ta Norman MD PCP - General Internal Medicine 06/09/15 Rishi Villatoro MD Cardiovascular Disease 06/09/15
--- OUTSIDE RECORDS SUMMARY | 2025-04-12 21:44 | XMS_ITS | Encounter Summary ---
Author Organization [facility] Healthcare Address [address] [place] [address] Care Team Providers Care Prop Setter Name Role Phone Ta Norman MD Primary Care Provider [phone] Pilo Latham MD Unavailable [phone] Reshma Davenport MD PhD Unavailable +[phone] Daryn Degroot DO Unavailable +[phone] Balta Sparrow MD Unavailable Austyn Ngo MD Unavailable [phone] Reason for Visit * Reason Onset Date Comments [facility] Preprocedure 04/16/2024 Encounter Details Date Type Department Care Team (Late st Contact Info) Description 04/16/2024 Telephone 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 Gender Identity Not on file Sexual Orientation [...] on filedocumented in this encounter Care Teams Prop Setter Relationship Specialty Start Date End Date Ta Norman MD [address] [facility] [address] [place] [address] PCP - General 12/29/12 Pilo Latham MD [address] [facility] [place] [address] Medical Oncologist/Extractions Technologist Hematology 12/31/19 Reshma Davenport MD PhD [address] [facility] [place] [address] Consulting Physician Psychiatry 01/19/21 Daryn Degroot DO [address] [place] [address] Referring Physician Neurology 01/21/21 Balta Sparrow MD [address] [facility] [address] [place] [address] Referring Physician Psychiatry 01/21/21 Austyn Ngo MD [address] [facility] [address] [place] [address] Consulting Physician Otolaryngology 10/11/24 documented as of this encounter
--- OUTSIDE RECORDS SUMMARY | 2025-04-12 21:44 | XMS_ITS | Encounter Summary ---
Author Organization [facility] Healthcare Address [address] [place] [address] Care Team Providers Care Electrophysiology Technician Name Role Phone Ta Norman MD Primary Care Provider [phone] Pilo Latham MD Unavailable [phone] Reshma Davenport MD PhD Unavailable +[phone] Daryn Degroot DO Unavailable +[phone] Balta Sparrow MD Unavailable Austyn Ngo MD Unavailable [phone] Reason for Referral * Diagnostic Imaging (Routine) - Pending Review Specialty Diagnoses / Procedures Referred By Contac t Referred To Contact Diagnoses Cervical spondylosis with radiculopathy Procedures Imaging Cervical/Thoracic Epidural Steroid INJ (39622) Ozzy Joyner MD [address] [facility] [address] [place] [address] Phone: tel: fax: [address] [phone] Referral ID Status Reason Start Date Expiration Date V isits Requested Visits Authorized [id number] Pending Review 04/12/2025 05/12/2026 1 1 * Diagnostic Imaging (Routine) - Closed Specialty Diagnoses / Procedures Referred By Contac t Referred To Contact Diagnoses Lumbar disc disease with radiculopathy Procedures Imaging Lumbar/Caudal Epidural Steroid INJ ([id number]) Ozzy Joyner MD [address] [place] [address] Phone: tel: fax: [address] [phone] Referral ID Status Reason Start Date Expiration Date Visits Re quested Visits Authorized [id number] Closed 02/02/2025 03/04/2026 1 1 Reason for Visit * Reason Comments Back Pain Bilateral lower back pain * Diagnostic Imaging (Routine) - Closed Specialty Diagnoses / Procedures Referred By Macey t Referred To Contact Diagnoses Lumbar disc disease with radiculopathy Procedures Imaging Lumbar/Caudal Epidural Steroid INJ ([id number]) Ozzy Joyner MD [address] [place] [address] Phone: tel: fax: [address] [phone] Referral ID Status Reason Start Date Expiration Date Visits Re quested Visits Authorized [id number] Closed 02/02/2025 03/04/2026 1 1 Encounter Details Date Type Department Care Team (Latest Contact Info) Description 04/12/2025 12:31 PM CDT Hospital Encounter [facility] [address] [facility] [address] [place] [address] Ozzy Joyner MD [address] [place] [address] Cervical spondylosis with radiculopathy (Primary Dx); Lumbar [...] on file 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 Ozzy Joyner MD Camper Assembler of Anesthesiology [facility] 04/12/2025 2:47 PM * [...] Resident involved on case Ozzy Joyner MD Camper Assembler of Anesthesiology [facility] 04/12/2025 1:11 PM * [...] r Schedule Imaging Cervical/Thoracic Epidural Steroid INJ ([id number]) Imaging Schedule Routine, Read Routine (OP Routine) [...] Results * Imaging Lumbar/Caudal Epidural Steroid INJ ([id number]) (04/12/2025 1:29 PM CDT) Narrative [facility]_P[facility] - [...] mL documented in this encounter Care Teams Electrophysiology Technician Relationship Specialty Start Date End Date Ta Norman MD [address] [facility] [address] [place] [address] PCP - General 12/29/12 Pilo Latham MD [address] [facility] [place] [address] Medical Oncologist/Sawdust Drier Hematology 12/31/19 Reshma Davenport MD PhD [address] [facility] [place] [address] Consulting Physician Psychiatry 01/19/21 Daryn Degroot DO [address] [place] [address] Referring Physician Neurology 01/21/21 Balta Sparrow MD [address] [facility] [address] [place] [address] Referring Physician Psychiatry 01/21/21 Austyn Ngo MD [address] [facility] [address] [place] [address] Consulting Physician Otolaryngology 10/11/24 documented as of this encounter
--- OUTSIDE RECORDS SUMMARY | 2025-04-12 21:44 | XMS_ITS | Encounter Summary ---
Author Organization [facility] Healthcare Address [address] [place] [address] Care Team Providers Care Accounting Manager Cpa Name Role Phone Ta Norman MD Primary Care Provider [phone] Pilo Latham MD Unavailable [phone] Reshma Davenport MD PhD Unavailable [phone] Daryn Degroot DO Unavailable [phone] Balta Sparrow MD Unavailable Austyn Ngo MD Unavailable [phone] Reason for Visit * Reason Onset Date Comments [facility] Preprocedure 04/11/2025 Encounter Details Date Type Department Care Team (Late st Contact Info) Description 04/11/2025 Telephone [facility] [address] [facility] Advanced Medicine [address] [place] [address] Ozzy Joyner MD [address] [place] [address] [facility] Preprocedure Social History Tobacco Use Types [...] on file 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 Gender Identity Not on file Sexual Orientation [...] on filedocumented in this encounter Care Teams Accounting Manager Cpa Relationship Specialty Start Date End Date Ta Norman MD [address] [facility] [address] [place] [address] PCP - General 12/29/12 Pilo Latham MD [address] [facility] [place] [address] Medical Oncologist/Kitchen Assistant Hematology 12/31/19 Reshma Davenport MD PhD [address] [facility] [place] [address] Consulting Physician Psychiatry 01/19/21 Daryn Degroot DO [address] [place] [address] Referring Physician Neurology 01/21/21 Balta Sparrow MD [address] [facility] [address] [place] [address] Referring Physician Psychiatry 01/21/21 Austyn Ngo MD [address] [facility] [address], [place] [address] Consulting Physician Otolaryngology 10/11/24 documented as of this encounter
--- OUTSIDE RECORDS SUMMARY | 2025-04-12 21:44 | XMS_ITS | Encounter Summary ---
Author Organization [facility] Healthcare Address [address] [place] [address] Care Team Providers Care Forest Engineer Name Role Phone Ta Norman MD Primary Care Provider [phone] Pilo Latham MD Unavailable [phone] Reshma Davenport MD PhD Unavailable [phone] Daryn Degroot DO Unavailable +[phone] Balta Sparrow MD Unavailable Austyn Ngo MD Unavailable [phone] Reason for Visit * Reason Onset Date Comments Anticoagulation 01/25/2025 Encounter Details Date Type Department Care Team (Late st Contact Info) Description 01/25/2025 Telephone [facility] [address] [facility] [address] Medicine [address] [place] [address] Ozzy Joyner MD [address] [facility] [address] [place] [address] Anticoagulation Social History Tobacco Use Types Packs/Day [...] on file 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 Gender Identity Not on file Sexual [...] on filedocumented in this encounter Care Teams Forest Engineer Relationship Specialty Start Date End Date Ta Norman MD [address] [address] PCP - General 12/29/12 Pilo Latham MD [address] [facility] [place] [address] Medical Oncologist/Field Operator Hematology 12/31/19 Reshma Davenport MD PhD [address] [facility] [place] [address] Consulting Physician Psychiatry 01/19/21 Daryn Degroot DO [address] [place] [address] Referring Physician Neurology 01/21/21 Balta Sparrow MD [address] [facility] [address] [place] [address] Referring Physician Psychiatry 01/21/21 Austyn Ngo MD [address] [facility] [address], [place] [address] Consulting Physician Otolaryngology 10/11/24 documented as of this encounter
--- OUTSIDE RECORDS SUMMARY | 2025-04-12 21:44 | XMS_ITS | Encounter Summary ---
Author Organization [facility] Healthcare Address 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 Gender Identity Not on file Sexual Orientation Not on file documented as of this encounter Plan of Treatment Not on file documented as of this encounter Visit Diagnoses Not on filedocumented in this encounter Care Teams Target Developer Relationship Specialty Start Date End Date Ta Norman MD [address] [facility] [address] [place] [address] PCP - General 12/29/12 Pilo Latham MD [address] [facility] [place] [address] Medical Oncologist/Disc Pad Grinder Hematology 12/31/19 Reshma Davenport MD PhD [address] [facility] [place] [address] Consulting Physician Psychiatry 01/19/21 Daryn Degroot DO [address] [place] [address] Referring Physician Neurology 01/21/21 Balta Sparrow MD [address] [facility] [address] [place] [address] Referring Physician Psychiatry 01/21/21 Austyn Ngo MD [address] [place] [address] Consulting Physician Otolaryngology 10/11/24 documented as of this encounter
--- NOTE | 2025-04-12 21:45 | ED_ITS ---
HPI - Ear Problem General Chief complaint: Ear Stated complaint: something in my R ear Time Seen by Provider: 04/12/25 21:23 History of Present Illness HPI Narrative: Patient had the tip of the ear lint cleaner fall off inside of his right ear canal, he has been trying to get it out but he has not been successful. Related Data Home Medications ?Medication ?Instructions ?Recorded ?Confirmed ?Last Taken ?Type atorvastatin 40 mg tablet 20 mg PO HS 07/06/20 03/03/23 03/01/23 21:00 History trazodone 100 mg tablet 200 mg PO HS 07/06/20 03/03/23 03/01/23 21:00 History donepezil 10 mg tablet 10 mg PO HS 12/17/22 03/03/23 03/01/23 21:00 History gabapentin 800 mg tablet 800 mg PO TID 12/17/22 03/03/23 03/02/23 12:00 History memantine 10 mg tablet 10 mg PO BID 12/17/22 03/03/23 03/02/23 08:00 History cholecalciferol (vitamin D3) 25 25 mcg PO DAILY 03/03/23 03/03/23 Unknown History mcg (1,000 unit) tablet pantoprazole 40 mg tablet,delayed 40 mg PO QAM 03/03/23 03/03/23 03/02/23 08:00 History release tizanidine 4 mg tablet 4 mg PO Q8H PRN Moderate Pain 03/03/23 03/03/23 Unknown History (Scale Score 5-6) Allergies Allergy/AdvReac Type Severity Reaction Status Date / Time meperidine Allergy Severe heart Verified 04/12/25 20:50 stopped methadone Allergy Mild Unknown Verified 04/12/25 20:50 shellfish derived Allergy Unknown Verified 04/12/25 20:50 Review of Systems Review of Systems: All systems reviewed & are unremarkable except as noted in HPI and below PMFSH Past Medical History Medical History CHF (congestive heart failure) Chronic anticoagulation CTE (chronic traumatic encephalopathy) Depression Essential hypertension GERD (gastroesophageal reflux disease) Hyperlipidemia Insomnia Migraines Obstructive sleep apnea Pacemaker Paroxysmal atrial fibrillation With last episode approximately 2005 when he has pacemaker placed Peripheral neuropathy PTSD (post-traumatic stress disorder) Sick sinus syndrome due to SA node dysfunction Status post pacemaker and defibrillator 2005 Traumatic brain injury Surgical History Surgical History History of colonoscopy with polypectomy (~2009) History of esophagogastroduodenoscopy (EGD) (~2009) History of facial surgery Status post open reduction with internal fixation (ORIF) of fracture of ankle (~1986) Status post open reduction with internal fixation of fracture Right knee Family History Family History Grandparent Acute myocardial infarction Chronic obstructive pulmonary disease Diabetes mellitus Hypertension Mother History of blood clots Social History Social History Social History: The patient is . He suffers from PTSD/CT from serving in [employer]. 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 He smoked a pack of cigarettes per day for 35 years. He had a history of former heavy alcohol use but quit drinking in 2001. He denies illicit substance use. Code status: Full code Surrogate decision maker: Smoking packs per day: 1 Smoking cigarettes per day: 20.0 Years smoked: 35 Smoking pack-years: 35.00 Smoking status: Former smoker Tobacco type: cigarettes Second hand tobacco smoke exposure: Yes Smoking end date: 11/24/09 Alcohol intake: never Substance use: never Substance use type: does not use Lack of Transportation: No Lack of Food: Never True Current Housing: I Have Housing Concerned About Future Housing: No Difficulty Paying Gas/Electric Bills: YES Difficulty Paying for Meds: No Currently Unemployed: No Education: Decline to Answer Difficulty w/ Childcare or Family Care: No Gender identity (if verbalized by the patient): Male Spiritual care concerns: No Exam Narrative: EXAMINATION OF ORGAN SYSTEMS/BODY AREAS: Constitutional: Vital signs per nursing GENERAL:[No acute distress, non-toxic appearing.] HEAD: Normal with no signs of head trauma. EYES: EOMI, conjunctiva normal ENT: Foreign body in right ear LUNGS: Nonlabored breathing. HEART: [Regular rate and rhythm] EXT: Normal range of motion SKIN: [No rashes or lesions.] NEURO: [Alert and oriented x 3. No gross focal sensory or strength deficits.] PSYCH: Normal affect Course Vital Signs Vital signs: Vital Signs Temperature 97.8 F 04/12/25 20:55 Pulse Rate 110 H 04/12/25 20:55 Respiratory Rate 16 04/12/25 20:55 Blood Pressure 175/117 H 04/12/25 20:55 Pulse Oximetry 97 04/12/25 20:55 Oxygen Delivery Room Air 04/12/25 20:55 Temperature 97.8 F 04/12/25 20:55 Pulse Rate 110 H 04/12/25 20:55 Respiratory Rate 16 04/12/25 20:55 Blood Pressure 175/117 H 04/12/25 20:55 Pulse Oximetry 97 04/12/25 20:55 Oxygen Delivery Room Air 04/12/25 20:55 Procedures FB Removal Ear Foreign Body #1: Foreign Body Removal Date: 04/12/25 Foreign Body Removal Time: 21:48 Location: ear canal (R) Foreign Body Suspected: other plastic TM intact pre-procedure: unable to visualize Foreign Body Removed: yes Foreign Body Removal Technique: forceps Tympanic Membrane Intact Post Procedure: Yes Patient Tolerated Procedure: well and no complications Medical Decision Making MDM Narrative Medical decision making narrative: Patient presenting here with foreign body in right ear canal, can visualize it, with alligator forceps removed without difficulty, there is still some ear but overall TM appears intact, tiny abrasion to ear canal without active bleeding. Patient instructed to return for any further issues. Vital Signs Vital Signs: Vital Signs Temperature 97.8 F 04/12/25 20:55 Pulse Rate 110 H 04/12/25 20:55 Respiratory Rate 16 04/12/25 20:55 Blood Pressure 175/117 H 04/12/25 20:55 Pulse Oximetry 97 04/12/25 20:55 Oxygen Delivery Room Air 04/12/25 20:55 Temperature 97.8 F 04/12/25 20:55 Pulse Rate 110 H 04/12/25 20:55 Respiratory Rate 16 04/12/25 20:55 Blood Pressure 175/117 H 04/12/25 20:55 Pulse Oximetry 97 04/12/25 20:55 Oxygen Delivery Room Air 04/12/25 20:55 Discharge Plan Discharge Clinical Impression: Foreign body Patient Disposition: Home Condition: Stable Instructions: Ear Foreign Body (ED) Additional Instructions: Please do not put anything else in your ear. You can always return to the emergency room for any further issues. Patient Language: Turkish Prescriptions: No Action pantoprazole 40 mg tablet,delayed release (DR/EC) 40 mg PO QAM tizanidine 4 mg Tablet 4 mg PO Q8H PRN (Reason: Moderate Pain (Scale Score 5-6)) cholecalciferol (vitamin D3) 25 mcg (1,000 unit) Tablet 25 mcg PO DAILY amoxicillin-pot clavulanate 875-125 mg tablet 1 tablet PO Q12H Qty: 3 0RF carvedilol 25 mg tablet 12.5 mg PO BID Qty: 10 0RF tramadol 50 mg Tablet 50 mg PO Q6H PRN (Reason: Pain) Qty: 1 0RF diazepam 10 mg tablet 10 mg PO DAILY PRN (Reason: Anxiety) Qty: 1 0RF Xarelto 20 mg tablet 20 mg PO QPM Qty: 10 0RF sacubitril-valsartan 97-103 mg Tablet 0.5 tablet PO BID Qty: 10 0RF atorvastatin 40 mg tablet 20 mg PO HS trazodone 100 mg tablet 200 mg PO HS donepezil 10 mg Tablet 10 mg PO HS gabapentin 800 mg tablet 800 mg PO TID memantine 10 mg tablet 10 mg PO BID Follow-up/Referrals: PHYSICIAN NOT ON STAFF,NONSTAFF [Primary Care Provider] -
== END 2025-04-12 21:51 | disposition home or self-care (01) ==
LOC: ANHED 21:42
PROVIDERS: Emergency Provider Emergency Medicine
DX: T16.1XXA Foreign body in right ear, initial encounter (principal); I50.9 Heart failure, unspecified; I11.0 Hypertensive heart disease with heart failure; I48.0 Paroxysmal atrial fibrillation; E78.5 Hyperlipidemia, unspecified; K21.9 Gastro-esophageal reflux disease without esophagitis; G47.33 Obstructive sleep apnea (adult) (pediatric); F43.10 Post-traumatic stress disorder, unspecified; Z95.810 Presence of automatic (implantable) cardiac defibrillator; Z86.0100 Personal history of colon polyps, unspecified; Z87.820 Personal history of traumatic brain injury; Z87.891 Personal history of nicotine dependence; Z79.899 Other long term (current) drug therapy; W44.8XXA Other foreign body entering into or through a natural orifice, initial encounter
CPT/HCPCS: 69200; 99282

== ENCOUNTER 2025-08-10 12:30 | Outpatient (RCR) | payer MEDICARE, SELFPAY ==
--- NOTE | 2025-06-24 13:45 | OPREHPOC ---
Outpatient Therapy Plan of Care This is a Multidisciplinary Plan of Care that may contain components documented by all disciplines (PT, OT, and ST.) ST Problem 1 ST Problem #[address] Goal 1 Goal / Goal Update The patient will participate in home programming to improve carry over/generalization of skills to the home environment. Target Visit 6 ST Goal 1 Goal / Goal Update Dysarthria: 1. The patient will use compensatory techniques for (over articulation techniques) for sentence production with 90% no cues. 2. The patient will use compensatory techniques for (over articulation techniques) for conversation exchange with 90% no cues. 3. The patient will complete HEP to increase carry over of techniques with 85% Target Visit 10
--- NOTE | 2025-06-24 13:45 | STOPEVAL1 ---
Assessment and note entered by Alina Terrell, QUENCHER OPERATOR Evaluation Information Assessment Status Evaluation Diagnosis R47.9 Subjective Information The patient is a 64 year old male with history of TBI, concussions and prior changes in cognition which he has put in place compensatory strategies to compensate. He is here today due to concerns with changes in his speech intelligibility due and to CTE(Chronic traumatic encephalopathy). Reported Pain Level Pain Score 0: Self Report Assessment ST Clinical Summary The patient is a 64 year old male with history of TBI, concussions and prior changes in cognition which he has put in place compensatory strategies to compensate. He is here today due to concerns with changes in his speech intelligibility due and to CTE(Chronic traumatic encephalopathy). The patient was administered the [place] [facility] Evaluation and probed for speech intelligibility. Oral Motor range and movement is within normal limits. The patient was producing conversational speech with 85% intelligibility primary deficits appear secondary to articulation of /s/, /sh/, /z/, Deficits appear primarily with fricatives . Recommending speech services 1x a week for 10 visits to train with compensatory speech techniques for correcting articulation errors. Plan of Care Interventions Treatment of Speech ST Services Indicated Yes These treatments will address the objective and functional deficits as defined above. The patient will be advanced safely and appropriately in order for the patient to progress towards his/her prior level of function. Additional exercises will be introduced and as well as a comprehensive home exercise program upon discharge, if needed, ?to ensure carryover of functional gains achieved in the clinic. This treatment plan has been reviewed and agreement upon by the patient.
--- NOTE | 2025-07-21 12:40 | PCSTNOTE ---
Patient did not show up for scheduled appointment this date. Called late to cancel
--- NOTE | 2025-08-10 13:23 | STOPDC ---
Assessment and note entered by Alina Terrell, HAND DEVELOPER Evaluation Information Assessment Status Discharge Reported Pain Level Pain Score 0: Self Report Assessment ST Clinical Summary The patient is a 64 year old male with history of TBI, concussions and prior changes in cognition which he has put in place compensatory strategies to compensate. He is here today due to concerns with changes in his speech intelligibility due and to CTE(Chronic traumatic encephalopathy). The patient was administered the [place] Evaluation and probed for speech intelligibility. Oral Motor range and movement is within normal limits. The patient was producing conversational speech with 85% intelligibility primary deficits appear secondary to articulation of /s/, /sh/, /z/, Deficits appear primarily with fricatives . Recommending speech services 1x a week for 10 visits to train with compensatory speech techniques for correcting articulation errors. Discharge: Discharge completed 08/10/25. Upon discharge the patient is able to compensate with over articulation, self monitoring, and self correction. All goals met 90-100% independent at sentence and conversation level. Plan of Care ST Services Indicated No
== END 2025-08-10 16:18 | disposition home or self-care (01) ==
LOC: ANHST 12:30
DX: R47.1 Dysarthria and anarthria (principal); R47.9 Unspecified speech disturbances; Z87.820 Personal history of traumatic brain injury
CPT/HCPCS: 92507; 92523